=== PATIENT | female | born 1950 | race Caucasian/White ===

== ENCOUNTER 2018-02-01 14:29 | Observation (INO) ==
--- NOTE | 2018-02-01 14:43 | Emergency Department Note ---
Disposition Clinical Impression: Acute exacerbation of chronic obstructive airways disease Disposition: Admitted As Inpatient Condition: Fair Referrals: NONE,PCP [Primary Care Provider] - Forms: ED Satisfaction Letter General Adult HPI - General Chief complaint: ED Shortness of Breath/Dyspnea Stated complaint: SUSHMA Time Seen by Provider: 02/01/18 14:34 Source: patient, EMS - History of Present Illness Pain Scale: 0 - Related Data Home Medications Medication Instructions Recorded Confirmed Allopurinol [Zyloprim 100 MG] 100 mg PO DAILY 09/27/15 04/09/16 Buspirone HCl [Buspar] 15 mg PO BID 09/27/15 04/09/16 Cholecalciferol (Vitamin D3) 2,000 unit PO DAILY 09/27/15 04/09/16 [Vitamin D3] Escitalopram [Lexapro] 20 mg PO DAILY 09/27/15 04/09/16 Furosemide [Lasix] 40 mg PO DAILY 09/27/15 04/09/16 Gabapentin [Neurontin] 600 mg PO BID 09/27/15 04/09/16 Insulin ASPART [Novolog] 22 - 28 unit SQ TIDWM 09/27/15 04/09/16 Levothyroxine [Synthroid] 175 mcg PO DAILY 09/27/15 04/09/16 Lisinopril [Zestril] 20 mg PO DAILY 09/27/15 04/09/16 Metoprolol [Lopressor] 25 mg PO BID 09/27/15 04/09/16 Multivitamin [Multi-Day Vitamins] 1 tab PO DAILY 09/27/15 04/09/16 Omeprazole [PriLOSEC] 20 mg PO DAILY 09/27/15 04/09/16 Potassium Chloride [Klor-Con 8 meq PO DAILY 09/27/15 04/09/16 Sprinkle] Simvastatin [Zocor] 40 mg PO HS 09/27/15 04/09/16 Trazodone HCl [TraZODone] 100 mg PO HS 09/27/15 04/09/16 Vitamin B Complex [B Complex] 1 tab PO DAILY 09/27/15 04/09/16 raNITIdine HCl [Zantac] 150 mg PO BID 09/27/15 04/09/16 traMADol [Ultram] 50 mg PO Q6HR PRN 09/27/15 04/09/16 Aspirin 81 mg PO DAILY 04/09/16 04/09/16 DiphenhydraMINE [Benadryl] 25 mg PO Q6HR PRN 04/09/16 04/09/16 Docusate [Colace] 300 mg PO DAILY 04/09/16 04/09/16 LORazepam [Ativan] 0.5 mg PO BID PRN 04/09/16 04/09/16 Loratadine [Claritin] 10 mg PO DAILY 04/09/16 04/09/16 Previous Rx's Medication Instructions Recorded Albuterol Neb [Proventil Neb] 2.5 mg IH Q4H PRN #1 inhsol 04/11/16 Doxycycline Hyclate [Vibramycin] 100 mg PO BID #22 capsule 04/11/16 Nystatin POWDER [Nystop] 1 appl TP BID #3 bottle 04/11/16 Allergies Allergy/AdvReac Type Severity Reaction Status Date / Time adhesive tape Allergy Rash Verified 04/09/16 08:51 codeine Allergy Hives Verified 04/09/16 08:51 Penicillins Allergy Rash Verified 04/09/16 08:51 Sulfa (Sulfonamide Allergy Rash Verified 04/09/16 08:51 Antibiotics) Past Medical History - Past Medical History Medical history: Reports: arthritis, COPD, diabetes, GERD, hyperlipidemia, hypertension, osteoporosis, renal disease, thyroid disease, other Surgical history: Reports: other Psychiatric history: Reports: anxiety, depression - Social History Smoking Status: Never smoker Smokeless Tobacco Status: No Alcohol use: Reports: none Drug use: Reports: none Physical Exam - General General appearance: alert Course Vital Signs Temperature 98.8 F 02/01/18 14:33 Pulse Rate 75 02/01/18 14:33 Respiratory Rate 24 02/01/18 14:33 Blood Pressure 162/75 02/01/18 14:33 O2 Sat by Pulse Oximetry 94 02/01/18 14:33 Temperature 98.8 F 02/01/18 14:33 Pulse Rate 86 02/01/18 16:49 Respiratory Rate 20 02/01/18 16:49 Blood Pressure 114/73 02/01/18 16:49 O2 Sat by Pulse Oximetry 90 02/01/18 16:49 Oxygen Delivery Oxygen Delivery Nasal Cannula Medical Decision Making - Lab Data Result diagrams: 02/01/18 14:47 02/01/18 14:47 Lab Results 02/01/18 02/01/1802/01/18 Range/Units 14:47 14:47 14:47 WBC 5.6 (4.3-11.1) K/mcL RBC 4.12 (3.82-4.97) M/mcL Hgb 12.0 (11.5-15.4) g/dL Hct 38.3 (35.3-44.9) % MCV 93.0 (83.0-100.0) fL MCH 29.1 (28.0-33.3) pg MCHC 31.3 L (31.6-35.5) g/dL RDW 14.8 H (11.5-14.5) % Plt Count 120 L (140-400) K/mcL MPV 9.8 (9.4-12.4) fL Immature Gran % 0.5 (0-4) % Seg Neutrophils % 52.7 % Lymphocytes % 31.9 % Monocytes % 8.5 % Eosinophils % 6.0 % Basophils % 0.4 % Neutrophils # 3.0 (1.6-8.9) K/mcL Lymphocytes # 1.8 (0.6-4.6) K/mcL Monocytes # 0.5 (0.0-1.3) K/mcL Eosinophils # 0.3 (0.0-0.6) K/mcL Basophils # 0.0 (0.0-0.2) K/mcL Sodium 140 (136-145) mEq/L Potassium 4.0 (3.5-5.1) mEq/L Chloride 95 L (98-107) mEq/L Carbon Dioxide 37 H (23-29) mEq/L BUN 21 (8-23) mg/dL Creatinine 1.35 H (0.60-1.20) mg/dL Est GFR ( Amer) 47 L (> 60) Est GFR (Non-Af Amer) 39 L (> 60) BUN/Creatinine Ratio 16 (6-26) Glucose 250 H (70-105) mg/dL Calculated Osmolality 301 H (280-300) Lactic Acid (0.5-2.2) mmol/L Calcium 9.5 (8.6-10.3) mg/dL Total Bilirubin 0.5 (0.3-1.0) mg/dL AST 16 (13-39) Units/L ALT 13 (7-52) Units/L Alkaline Phosphatase 86 (34-104) Units/L Troponin I 0.03 (< 0.04) ng/mL B-Natriuretic Peptide 88 (Less than 100) pg/mL Serum Total Protein 6.5 (6.4-8.9) g/dL Albumin 3.5 (3.5-5.7) g/dL Globulin 3.0 (2.4-3.5) g/dL Albumin/Globulin Ratio 1.2 (1.1-2.2) 02/01/18 Range/Units 15:03 WBC (4.3-11.1) K/mcL RBC (3.82-4.97) M/mcL Hgb (11.5-15.4) g/dL Hct (35.3-44.9) % MCV (83.0-100.0) fL MCH (28.0-33.3) pg MCHC (31.6-35.5) g/dL RDW (11.5-14.5) % Plt Count (140-400) K/mcL MPV (9.4-12.4) fL Immature Gran % (0-4) % Seg Neutrophils % % Lymphocytes % % Monocytes % % Eosinophils % % Basophils % % Neutrophils # (1.6-8.9) K/mcL Lymphocytes # (0.6-4.6) K/mcL Monocytes # (0.0-1.3) K/mcL Eosinophils # (0.0-0.6) K/mcL Basophils # (0.0-0.2) K/mcL Sodium (136-145) mEq/L Potassium (3.5-5.1) mEq/L Chloride (98-107) mEq/L Carbon Dioxide (23-29) mEq/L BUN (8-23) mg/dL Creatinine (0.60-1.20) mg/dL Est GFR ( Amer) (> 60) Est GFR (Non-Af Amer) (> 60) BUN/Creatinine Ratio (6-26) Glucose (70-105) mg/dL Calculated Osmolality (280-300) Lactic Acid 1.0 (0.5-2.2) mmol/L Calcium (8.6-10.3) mg/dL Total Bilirubin (0.3-1.0) mg/dL AST (13-39) Units/L ALT (7-52) Units/L Alkaline Phosphatase (34-104) Units/L Troponin I (< 0.04) ng/mL B-Natriuretic Peptide (Less than 100) pg/mL Serum Total Protein (6.4-8.9) g/dL Albumin (3.5-5.7) g/dL Globulin (2.4-3.5) g/dL Albumin/Globulin Ratio (1.1-2.2) Critical Care Time Critical Care Time: Yes Total Critical Care Time: 30 Attestation: The high probability of a clinically significant, sudden or life threatening deterioration of the [] system(s) required my full and direct attention, intervention and personal management. The aggregate critical care time was [] minutes. This time is in addition to time spent performing reported procedures but includes the following: [] Data Review and interpretation [] Patient assessment and monitoring of vital signs [] Documentation [] Medication orders and management Attestation Statement - Attestation Attestation: I examined this patient and my medical decision-making was reviewed with the Resident Physician. I agree with the documented findings, disposition and treatment plan as described except to the extent set forth below. [id number] time provided Obese female presents by EMS. She c/o dyspnea. She has a history of COPD and CHF. He has a history of oxygen dependency. Appears mildly dyspneic on arrival
[2018-02-01] MEDS ORDERED: Ipratropium/Albuterol Neb 3 ML IH ONE (14:44)
--- NOTE | 2018-02-01 14:55 | Emergency Department Note ---
Disposition Clinical Impression: Acute exacerbation of chronic obstructive airways disease Disposition: Admitted As Inpatient Condition: Fair Referrals: NONE,PCP [Primary Care Provider] - Forms: ED Satisfaction Letter Time of Disposition: 17:25 (Spoke with admitting physician Dr. Avila) General Adult HPI - General Chief complaint: ED Shortness of Breath/Dyspnea Stated complaint: SUSHMA Time Seen by Provider: 02/01/18 14:34 Source: patient, EMS Mode of arrival: EMS Limitations: no limitations Nursing Notes Reviewed: Yes Vital Signs Reviewed: Yes - History of Present Illness HPI Narrative: 67 yo female presents to the ED via EMS with a complaint of shortness of breath since Thursday. She has a history of COPD, CHF, diabetes, and multiple other medical problems. She is on home oxygen at 3-4 L. She states that she has had to increase her home oxygen usage over the past several days because of her shortness of breath. She noted some new onset nausea today along with left lower quadrant abdominal pain that has now resolved. She has been around her son who was recently diagnosed with acute bronchitis. She denies fevers, chills , chest pain, constipation. She has noted one episode of loose stool that happened 2 or 3 days ago. She denies blood in her stool. Onset (ago): day(s) Radiation: non-radiation Pain Scale: 0 Consistency: constant Improves with: nothing Worsens with: movement Associated symptoms: Reports: cough, nausea/vomiting, shortness of breath Treatments Prior to Arrival: none - Related Data Home Medications Medication Instructions Recorded Confirmed Allopurinol [Zyloprim 100 MG] 100 mg PO DAILY 09/27/15 02/01/18 Buspirone HCl [Buspar] 15 mg PO BID 09/27/15 02/01/18 Cholecalciferol (Vitamin D3) 2,000 unit PO DAILY 09/27/15 02/01/18 [Vitamin D3] Furosemide [Lasix] 40 mg PO DAILY 09/27/15 02/01/18 Gabapentin [Neurontin] 600 mg PO BID 09/27/15 02/01/18 Insulin ASPART [Novolog] 22 - 28 unit SQ TIDWM 09/27/15 02/01/18 Lisinopril [Zestril] 40 mg PO DAILY 09/27/15 02/01/18 Metoprolol [Lopressor] 25 mg PO BID 09/27/15 02/01/18 Multivitamin [Multi-Day Vitamins] 1 tab PO DAILY 09/27/15 02/01/18 Omeprazole [PriLOSEC] 20 mg PO DAILY 09/27/15 02/01/18 Potassium Chloride [Klor-Con 8 meq PO DAILY 09/27/15 02/01/18 Sprinkle] Trazodone HCl [TraZODone] 100 mg PO HS 09/27/15 02/01/18 Vitamin B Complex [B Complex] 1 tab PO DAILY 09/27/15 02/01/18 raNITIdine HCl [Zantac] 150 mg PO BID 09/27/15 02/01/18 Aspirin 81 mg PO DAILY 04/09/16 02/01/18 DiphenhydraMINE [Benadryl] 25 mg PO Q6HR PRN 04/09/16 02/01/18 Docusate [Colace] 300 mg PO DAILY 04/09/16 02/01/18 Loratadine [Claritin] 10 mg PO DAILY 04/09/16 02/01/18 Atorvastatin Calcium [Lipitor] 80 mg PO HS 02/01/18 02/01/18 Insulin DETEMIR [Levemir] 80 unit SQ QPM 02/01/18 02/01/18 Levothyroxine Sodium [Synthroid] 200 mcg PO DAILY 02/01/18 02/01/18 Previous Rx's Medication Instructions Recorded Albuterol Neb [Proventil Neb] 2.5 mg IH Q4H PRN #1 inhsol 04/11/16 Nystatin POWDER [Nystop] 1 appl TP BID #3 bottle 04/11/16 Allergies Allergy/AdvReac Type Severity Reaction Status Date / Time adhesive tape Allergy Rash Verified 04/09/16 08:51 codeine Allergy Hives Verified 04/09/16 08:51 Penicillins Allergy Rash Verified 04/09/16 08:51 Sulfa (Sulfonamide Allergy Rash Verified 04/09/16 08:51 Antibiotics) All systems ED: reviewed and negative except as stated. Review of Systems: As Per HPI Constitutional: Denies: fever, chills, weakness, weight change Cardiovascular: Reports: dyspnea on exertion. Denies: chest pain, palpitations , edema, syncope Respiratory: Reports: cough, dyspnea, wheezes Gastrointestinal: Reports: abdominal pain, nausea. Denies: vomiting, constipation, melena, hematochezia Past Medical History - Past Medical History Attestation: Yes The following information was validated with the patient. Source: patient Medical history: Reports: arthritis, COPD, diabetes, GERD, hyperlipidemia, hypertension, osteoporosis, renal disease, thyroid disease, other Surgical history: Reports: other Psychiatric history: Reports: anxiety, depression - Social History Smoking Status: Never smoker Smokeless Tobacco Status: No Alcohol use: Reports: none Drug use: Reports: none Physical Exam - General Limitations: no limitations General appearance: alert - Head Head exam: atraumatic, normocephalic, normal inspection - Chest Chest inspection: Present: normal inspection, symmetric chest wall rise. Absent : tenderness - Respiratory Respiratory exam: Present: wheezes (Tight airway with end expiratory wheezes), prolonged expiratory phase - Cardiovascular Cardiovascular exam: Present: regular rate, normal rhythm - Abdominal Exam Abdominal exam: Present: soft, Non-Tender Course Course Narrative: Patient will be worked up for ACS versus CHF versus COPD exacerbation. CBC, CMP , lactic, troponin, EKG, chest x-ray have been ordered. DuoNeb 3 ordered. - Reevaluation(s) Reevaluation #1: Labs reviewed, unremarkable. Chest x-ray showed no signs of infiltrate. Patient was reexamined and found to have increased wheezing on exam. Patient still short of breath after DuoNeb treatment. We will give 125 mg Solu-Medrol, 750 mg Levaquin, and admit due to persistent shortness of breath. Time: 16:16 Vital Signs Temperature 98.8 F 02/01/18 14:33 Pulse Rate 75 02/01/18 14:33 Respiratory Rate 24 02/01/18 14:33 Blood Pressure 162/75 02/01/18 14:33 O2 Sat by Pulse Oximetry 94 02/01/18 14:33 Temperature 98.8 F 02/01/18 14:33 Pulse Rate 82 02/01/18 18:32 Respiratory Rate 24 02/01/18 17:32 Blood Pressure 183/58 02/01/18 17:32 O2 Sat by Pulse Oximetry 96 02/01/18 18:32 Oxygen Delivery Oxygen Delivery Room Air Medical Decision Making - Medical Records Medical records reviewed: Yes I reviewed the patient's medical records. - Lab Data Lab results reviewed: Yes I reviewed the patient's lab results. Result diagrams: 02/01/18 14:47 02/01/18 14:47 Lab Results 02/01/18 02/01/18 02/01/18 Range/Units 14:47 14:47 14:47 WBC 5.6 (4.3-11.1) K/mcL RBC 4.12 (3.82-4.97) M/mcL Hgb 12.0 (11.5-15.4) g/dL Hct 38.3 (35.3-44.9) % MCV 93.0 (83.0-100.0) fL MCH 29.1 (28.0-33.3) pg MCHC 31.3 L (31.6-35.5) g/dL RDW 14.8 H (11.5-14.5) % Plt Count 120 L (140-400) K/mcL MPV 9.8 (9.4-12.4) fL Immature Gran % 0.5 (0-4) % Seg Neutrophils % 52.7 % Lymphocytes % 31.9 % Monocytes % 8.5 % Eosinophils % 6.0 % Basophils % 0.4 % Neutrophils # 3.0 (1.6-8.9) K/mcL Lymphocytes # 1.8 (0.6-4.6) K/mcL Monocytes # 0.5 (0.0-1.3) K/mcL Eosinophils # 0.3 (0.0-0.6) K/mcL Basophils # 0.0 (0.0-0.2) K/mcL ABG pH (7.32-7.45) pH Units ABG pCO2 (35-45) mmHg ABG pO2 (85-104) mmHg ABG HCO3 (21-27) mEq/L ABG Total CO2 (20-26) mEq/L ABG O2 Saturation (95-98) % ABG Base Excess (-2 to 3) mEq/L Alejandro Test O2 Delivery Device Inspired O2 (1-15=lpm [id number]=%) Sodium 140 (136-145) mEq/L Potassium 4.0 (3.5-5.1) mEq/L Chloride 95 L (98-107) mEq/L Carbon Dioxide 37 H (23-29) mEq/L BUN 21 (8-23) mg/dL Creatinine 1.35 H (0.60-1.20) mg/dL Est GFR ( Amer) 47 L (> 60) Est GFR (Non-Af Amer) 39 L (> 60) BUN/Creatinine Ratio 16 (6-26) Glucose 250 H (70-105) mg/dL Calculated Osmolality 301 H (280-300) Lactic Acid (0.5-2.2) mmol/L Calcium 9.5 (8.6-10.3) mg/dL Total Bilirubin 0.5 (0.3-1.0) mg/dL AST 16 (13-39) Units/L ALT 13 (7-52) Units/L Alkaline Phosphatase 86 (34-104) Units/L Troponin I 0.03 (< 0.04) ng/mL B-Natriuretic Peptide 88 (Less than 100) pg/mL Serum Total Protein 6.5 (6.4-8.9) g/dL Albumin 3.5 (3.5-5.7) g/dL Globulin 3.0 (2.4-3.5) g/dL Albumin/Globulin Ratio 1.2 (1.1-2.2) 02/01/18 02/01/18 Range/Units 15:03 17:37 WBC (4.3-11.1) K/mcL RBC (3.82-4.97) M/mcL Hgb (11.5-15.4) g/dL Hct (35.3-44.9) % MCV (83.0-100.0) fL MCH (28.0-33.3) pg MCHC (31.6-35.5) g/dL RDW (11.5-14.5) % Plt Count (140-400) K/mcL MPV (9.4-12.4) fL Immature Gran % (0-4) % Seg Neutrophils % % Lymphocytes % % Monocytes % % Eosinophils % % Basophils % % Neutrophils # (1.6-8.9) K/mcL Lymphocytes # (0.6-4.6) K/mcL Monocytes # (0.0-1.3) K/mcL Eosinophils # (0.0-0.6) K/mcL Basophils # (0.0-0.2) K/mcL ABG pH 7.51 H (7.32-7.45) pH Units ABG pCO2 50 H (35-45) mmHg ABG pO2 88 (85-104) mmHg ABG HCO3 39 H (21-27) mEq/L ABG Total CO2 41 H (20-26) mEq/L ABG O2 Saturation 97 (95-98) % ABG Base Excess 14 H (-2 to 3) mEq/L Alejandro Test N/A O2 Delivery Device Cannula Inspired O2 6.0 (1-15=lpm [id number]=%) Sodium (136-145) mEq/L Potassium (3.5-5.1) mEq/L Chloride (98-107) mEq/L Carbon Dioxide (23-29) mEq/L BUN (8-23) mg/dL Creatinine (0.60-1.20) mg/dL Est GFR ( Amer) (> 60) Est GFR (Non-Af Amer) (> 60) BUN/Creatinine Ratio (6-26) Glucose (70-105) mg/dL Calculated Osmolality (280-300) Lactic Acid 1.0 (0.5-2.2) mmol/L Calcium (8.6-10.3) mg/dL Total Bilirubin (0.3-1.0) mg/dL AST (13-39) Units/L ALT (7-52) Units/L Alkaline Phosphatase (34-104) Units/L Troponin I (< 0.04) ng/mL B-Natriuretic Peptide (Less than 100) pg/mL Serum Total Protein (6.4-8.9) g/dL Albumin (3.5-5.7) g/dL Globulin (2.4-3.5) g/dL Albumin/Globulin Ratio (1.1-2.2) - Radiology Data Radiology results reviewed: Yes I reviewed the patient's radiology results. - EKG Data EKG #1 EKG attestation: Yes I reviewed and interpreted this EKG. EKG results narrative: 1448: Ventricular rate 73 bpm, NJ interval 177 MS, QRS duration 105 MS, QT/QTC ratio 402/429 MS, normal axis. Sinus rhythm, moderate voltage criteria for left ventricular hypertrophy. No evidence of ischemic ST-T changes on EKG. No changes from previous EKG dated 09/24/2017. EKG shows normal: sinus rhythm Rate: normal
[2018-02-01 14:59] LABS: Basophils % 0.4 %; Eosinophils # 0.3 K/mcL (0.0-0.6); Hematocrit 38.3 % (35.3-44.9); Immature Granulocytes % 0.5 % (0-4); Lymphocytes # 1.8 K/mcL (0.6-4.6); Lymphocytes % 31.9 %; Mean Corpuscular HGB Conc 31.3 g/dL (31.6-35.5); Mean Corpuscular Hemoglobin 29.1 pg (28.0-33.3); Mean Platelet Volume 9.8 fL (9.4-12.4); Monocytes # 0.5 K/mcL (0.0-1.3); Monocytes % 8.5 %; Platelet Count 120 K/mcL (140-400); Red Blood Count 4.12 M/mcL (3.82-4.97); Red Cell Distribution Width 14.8 % (11.5-14.5); Segmented Neutrophils % 52.7 %
[2018-02-01 15:22] LABS: Troponin I 0.03 ng/mL (< 0.04)
[2018-02-01 15:43] LABS: Albumin 3.5 g/dL (3.5-5.7); Albumin/Globulin Ratio 1.2 (1.1-2.2); Bilirubin,Total 0.5 mg/dL (0.3-1.0); Calcium 9.5 mg/dL (8.6-10.3); Total Protein 6.5 g/dL (6.4-8.9)
[2018-02-01] MEDS ORDERED: methylPREDNISolone 125 MG/2 ML VIAL IVP ONE (16:06)
[2018-02-01] MEDS: Levofloxacin 750 MG/150 ML 750 MG/150 ML BAG IVPB SCH (16:37)
[2018-02-01] MEDS ORDERED: *HR* LORazepam 2 MG/ML VIAL IVP ONE (16:55)
[2018-02-01] MEDS ORDERED: Ondansetron 4 MG/2 ML VIAL IVP ONE (16:58)
[2018-02-01 17:42] LABS: ABG Base Excess 14 mEq/L (-2 to 3); ABG HCO3 39 mEq/L (21-27); ABG Oxygen Saturation 97 % (95-98); ABG PCO2 50 mmHg (35-45); ABG PH 7.51 pH Units (7.32-7.45); ABG PO2 88 mmHg (85-104); ABG TCO2 41 mEq/L (20-26)
--- NOTE | 2018-02-01 21:14 | Internal Med History&Physical ---
Date of Encounter: 02/01/18 Time of Encounter: 21:14 Internal Medicine - H&P: HPI Chief complaint: Shortness of breath History of present illness: Ms. Smart is a 67 year old female presents to the ED via EMS with a complaint of shortness of breath since Thursday. She has a history of COPD, CHF, diabetes, and multiple other medical problems and require maintenance 3-4 L of home oxygen where she has to increase that gradually over the last several days due to worsening of her shortness of breath at was associated with nausea as well as left lower quadrant abdominal pain and one episode of loose stool that has now resolved. She reported a sick contact at home, her son who was recently diagnosed with acute bronchitis. The patient received respiratory treatment and was given Solu-Medrol in the ER with significant clinical improvement that was noted subsequently. Patient was admitted for further evaluation and management of COPD exacerbation Past Med Surg Social Fam HX - Past Medical History Medical history: arthritis, COPD, diabetes, GERD, hyperlipidemia, hypertension, osteoporosis, renal disease, thyroid disease, other Additional medical history: heart murmur, cellulitis Psychiatric history: anxiety, depression - Past Surgical History Surgical History: other Additional surgical history: left leg surgery with wound vac, fistula - Social History Smoking Status: Never smoker Smokeless Tobacco Status: No Alcohol use: none Drug use: none - Family History Mother Living Status: Age at : 75 Cause of : cancer Hx Family Cardiac Disorders: Yes Hx Family Respiratory Disorders: No Hx Family Cancer: Yes (COLON CANCER) Hx Family GI Disorders: Yes Hx Family Endocrine Disorder: Yes Internal Medicine - H&P: Meds Allopurinol [Zyloprim 100 MG] 100 mg PO DAILY 09/27/15 [History] Buspirone HCl [Buspar] 15 mg PO BID 09/27/15 [History] Cholecalciferol (Vitamin D3) [Vitamin D3] 2,000 unit PO DAILY 09/27/15 [History] Furosemide [Lasix] 40 mg PO DAILY 09/27/15 [History] Gabapentin [Neurontin] 600 mg PO BID 09/27/15 [History] Insulin ASPART [Novolog] 22 - 28 unit SQ TIDWM 09/27/15 [History] Lisinopril [Zestril] 40 mg PO DAILY 09/27/15 [History] Metoprolol [Lopressor] 25 mg PO BID 09/27/15 [History] Multivitamin [Multi-Day Vitamins] 1 tab PO DAILY 09/27/15 [History] Omeprazole [PriLOSEC] 20 mg PO DAILY 09/27/15 [History] Potassium Chloride [Klor-Con Sprinkle] 8 meq PO DAILY 09/27/15 [History] Trazodone HCl [TraZODone] 100 mg PO HS 09/27/15 [History] Vitamin B Complex [B Complex] 1 tab PO DAILY 09/27/15 [History] Aspirin 81 mg PO DAILY 04/09/16 [History] DiphenhydraMINE [Benadryl] 25 mg PO Q6HR PRN 04/09/16 [History] Docusate [Colace] 300 mg PO DAILY 04/09/16 [History] Loratadine [Claritin] 10 mg PO DAILY 04/09/16 [History] Albuterol Neb [Proventil Neb] 2.5 mg IH Q4H PRN #1 inhsol 04/11/16 [Rx] Nystatin POWDER [Nystop] 1 appl TP BID #3 bottle 04/11/16 [Rx] Atorvastatin Calcium [Lipitor] 80 mg PO HS 02/01/18 [History] Insulin DETEMIR [Levemir] 80 unit SQ QPM 02/01/18 [History] Levothyroxine Sodium [Synthroid] 200 mcg PO DAILY 02/01/18 [History] raNITIdine HCl [Zantac] 150 mg PO BID 02/01/18 [History] 3 Allergy/AdvReac Type Severity Reaction Status Date / Time adhesive tape Allergy Rash Verified 02/01/18 21:49 codeine Allergy Hives Verified 02/01/18 21:49 Penicillins Allergy Rash Verified 02/01/18 21:49 Sulfa (Sulfonamide Allergy Rash Verified 02/01/18 21:49 Antibiotics) All Systems PM: A 10-system review of systems was performed and is negative for pertinent findings except as documented above in the HPI. - Constitutional Constitutional: no chills, no fever(s), no night sweats - Cardiovascular Cardiovascular ROS IM: dyspnea, dyspnea on exertion, no chest pain, no diaphoresis, no lightheadedness, no palpitations, no syncope - Respiratory Respiratory: dyspnea, no cough, no wheezing, no excessive phlegm production - Gastrointestinal Gastrointestinal: no abdominal pain, no diarrhea, no hematemesis, no hematochezia, no melena, no nausea, no vomiting - Neurological Neurological ROS: no confusion, no convulsions, no focal weakness, no numbness, no tingling, no tremor(s) - Constitutional Vitals: Temp Pulse Resp BP Pulse Ox 98.7 F 71 18 170/74 98 02/01/18 20:34 02/01/18 20:34 02/01/18 20:34 02/01/18 20:34 02/01/18 20:34 General appearance: Present: A&O X 3, morbidly obese - Head Head exam: Present: atraumatic, normocephalic - Neck Neck exam general surgery: Present: supple, trachea midline. Absent: lymphadenopathy - Respiratory Respiratory exam: Present: rhonchi, wheezes. Absent: accessory muscle use, rales - Cardiovascular Cardiovascular exam: Present: RRR, +S1, +S2. Absent: diastolic murmur, gallop, rubs, systolic murmur - GI/Abdominal GI/Abdominal exam: Present: normal bowel sounds, soft, no peritoneal signs. Absent: distended, tenderness - Extremities Exam Extremities exam: Present: warm, radial pulses palpable and symmetrical. Absent : calf tenderness, cyanotic, pedal edema Internal Med - H&P Results - Labs CBC & Chem 7: 02/02/18 04:33 02/02/18 04:33 - Assessment and plan (1) Acute exacerbation of chronic obstructive airways disease Current Visit: Yes Status: Acute Assessment and plan: ASSESSMENT: - SOB due to COPD exacerbation caused by URTI, allergen exposure, medication nonocompliance PLAN: - Aerosols q 4 hr and PRN SOB - Solu-medrol 40 mg IV q 6 hr - O2 to keep SpO2 higher than 92% (SpO higher than 95% if CAD) - CBCD, BMP in AM - Sputum Gram stain, C+S - Robitussin 10 cc PO q 4 hr - Tylenol 650 mg PO q 4-6 hr PRN pain/fever - Heparin 5000 U SQ BID - Home meds - check the list and restart - ABs (2) Chronic respiratory failure Current Visit: No Status: Chronic Assessment and plan: We will continue home oxygen Qualifiers: Respiratory failure complication: hypoxia and hypercapnia Qualified Code(s) : J96.11 - Chronic respiratory failure with hypoxia; J96.12 - Chronic respiratory failure with hypercapnia (3) Diabetes mellitus type 2 in obese Current Visit: No Status: Chronic Assessment and plan: We will continue home regimen and start the patient on insulin sliding scale with moderate coverage (4) Dyslipidemia Current Visit: No Status: Chronic Assessment and plan: We will continue home statin and obtain fasting lipid profile in a.m. (5) Morbid obesity with BMI of 60.0-69.9, adult Current Visit: No Status: Chronic (6) CKD (chronic kidney disease) Current Visit: Yes Status: Acute Assessment and plan: Creatinine at baseline we will continue to monitor renal function, strict I&O's , renal dosing of medication as better current EGFR Qualifiers: Qualified Code(s): N18.9 - Chronic kidney disease, unspecified (7) DVT prophylaxis Current Visit: No Status: Acute Assessment and plan: Heparin subcutaneous 5000 twice a day - Time Spent With Patient Total time spent is greater than 50% in coordination of care (as documented) at patient's floor/unit and/or counseling patient:
[2018-02-01] MEDS ORDERED: Albuterol 2.5 MG/3 ML NEBULIZER IH PRN (21:16)
[2018-02-01] MEDS ORDERED: *HR* Dextrose 50 % in Water (Syg) 50 ML SYRINGE IVP PRN (21:19)
[2018-02-01] MEDS ORDERED: D5% in Water 1,000 ML IVC PRN (21:19)
[2018-02-01] MEDS ORDERED: Dextrose Gel 15 GM/37.5 ML TUBE PO PRN ×2 (21:19)
[2018-02-01] MEDS ORDERED: Naloxone 0.4 MG/ML INJ IVP PRN (21:46)
[2018-02-01] MEDS ORDERED: Acetaminophen 325 MG TABLET PO PRN (21:46)
[2018-02-01] MEDS ORDERED: Insulin LISPRO 300 UNITS/3 ML VIAL SQ ONE (22:59)
[2018-02-02] MEDS ORDERED: Ondansetron 4 MG/2 ML VIAL IVP PRN (00:59)
[2018-02-02] MEDS: traZODone 50 MG TABLET PO SCH ×2 (01:17→22:42)
[2018-02-02] MEDS: traMADol 50 MG TABLET PO PRN ×2 (03:33→22:45)
[2018-02-02 05:10] LABS: Hematocrit 37.3 % (35.3-44.9); Hemoglobin 11.8 g/dL (11.5-15.4); Mean Corpuscular HGB Conc 31.6 g/dL (31.6-35.5); Mean Corpuscular Hemoglobin 28.9 pg (28.0-33.3); Mean Corpuscular Volume 91.4 fL (83.0-100.0); Mean Platelet Volume 10.3 fL (9.4-12.4); Platelet Count 129 K/mcL (140-400); Red Blood Count 4.08 M/mcL (3.82-4.97); Red Cell Distribution Width 14.5 % (11.5-14.5)
[2018-02-02 05:19] LABS: INR 1.1
[2018-02-02] MEDS ORDERED: *HR* FentaNYL (PF) 100 MCG/2 ML VIAL IVP ONE (05:31)
[2018-02-02 05:34] LABS: Albumin 3.3 g/dL (3.5-5.7); Bilirubin,Total 0.5 mg/dL (0.3-1.0); Calcium 9.3 mg/dL (8.6-10.3); Chol/HDL Ratio 3.8 (0-4.9); Globulin 3.4 g/dL (2.4-3.5); Magnesium 1.6 mg/dL (1.6-2.6); Phosphorous 3.2 mg/dL (2.7-4.5); Potassium 4.5 mEq/L (3.5-5.1); Total Protein 6.7 g/dL (6.4-8.9)
[2018-02-02 06:26] LABS: Amylase 14 Units/L (29-103); Lipase 5 Units/L (11-82)
--- NOTE | 2018-02-02 07:52 | Internal Med Progress Note ---
Date of Encounter: 02/02/18 Time of Encounter: 07:52 - Assessment and plan (1) Abdominal pain Current Visit: Yes Status: Acute Assessment and plan: Associated with several episode of loose stool since yesterday C. difficile is pending would obtain CAT scan with IV contrast. Qualifiers: Qualified Code(s): R10.9 - Unspecified abdominal pain (2) Acute exacerbation of chronic obstructive airways disease Current Visit: Yes Status: Acute Assessment and plan: ASSESSMENT: - SOB due to COPD exacerbation caused by URTI, allergen exposure, medication nonocompliance PLAN: - Aerosols q 4 hr and PRN SOB - Solu-medrol 40 mg IV q 6 hr - O2 to keep SpO2 higher than 92% (SpO higher than 95% if CAD) - CBCD, BMP in AM - Sputum Gram stain, C+S - Robitussin 10 cc PO q 4 hr - Tylenol 650 mg PO q 4-6 hr PRN pain/fever - Heparin 5000 U SQ BID - ABs (3) Chronic respiratory failure Current Visit: No Status: Chronic Assessment and plan: We will continue home oxygen Qualifiers: Respiratory failure complication: hypoxia and hypercapnia Qualified Code(s) : J96.11 - Chronic respiratory failure with hypoxia; J96.12 - Chronic respiratory failure with hypercapnia (4) Diabetes mellitus type 2 in obese Current Visit: No Status: Chronic Assessment and plan: We will continue home regimen and start the patient on insulin sliding scale with moderate coverage (5) Dyslipidemia Current Visit: No Status: Chronic Assessment and plan: We will continue home statin and obtain fasting lipid profile in a.m. (6) Morbid obesity with BMI of 60.0-69.9, adult Current Visit: No Status: Chronic (7) CKD (chronic kidney disease) Current Visit: Yes Status: Acute Assessment and plan: Creatinine at baseline we will continue to monitor renal function, strict I&O's , renal dosing of medication as better current EGFR Qualifiers: Qualified Code(s): N18.9 - Chronic kidney disease, unspecified (8) DVT prophylaxis Current Visit: No Status: Acute Assessment and plan: Heparin subcutaneous 5000 twice a day - Time Spent With Patient Total time spent is greater than 50% in coordination of care (as documented) at patient's floor/unit and/or counseling patient: - Subjective Interval history: She is lying in the pain. She is complaining of severe abdominal pain, stated that she believes something wrong with her abdomen, she also has several episode of loose stool and C. difficile studies are pending. - Constitutional Vitals: Temp Pulse Resp BP Pulse Ox 98.0 F 79 18 142/88 93 02/02/18 06:56 02/02/18 06:56 02/02/18 06:56 02/02/18 06:56 02/02/18 06:56 General appearance: Present: A&O X 3, morbidly obese - Head Head exam: Present: atraumatic, normocephalic - Neck Neck exam general surgery: Present: supple, trachea midline. Absent: lymphadenopathy - Cardiovascular Cardiovascular exam: Present: RRR, +S1, +S2. Absent: diastolic murmur, gallop, rubs, systolic murmur - GI/Abdominal GI/Abdominal exam: Present: normal bowel sounds, soft, no peritoneal signs. Absent: distended, tenderness - Extremities Exam Extremities exam: Present: warm, radial pulses palpable and symmetrical. Absent : calf tenderness, cyanotic, pedal edema - Neurological Exam Neurological exam: Present: CN II-XII intact, oriented X3, no focal deficits. Absent: pronater drift, facial droop, speech deficit Internal Medicine: Result - Labs CBC & Chem 7: 02/02/18 04:33 02/02/18 04:33 Labs: Short CBC 02/02/18 Range/Units 04:33 WBC 5.4 (4.3-11.1) K/mcL Hgb 11.8 (11.5-15.4) g/dL Hct 37.3 (35.3-44.9) % Plt Count 129 L (140-400) K/mcL BMP 02/02/18 04:33 Sodium 137 Potassium 4.5 Chloride 93 L Carbon Dioxide 35 H BUN 25 H Creatinine 1.23 H Glucose 386 H Calcium 9.3 Liver Function 02/02/18 Range/Units 04:33 Total Bilirubin 0.5 (0.3-1.0) mg/dL AST 16 (13-39) Units/L ALT 13 (7-52) Units/L Alkaline Phosphatase 86 (34-104) Units/L Albumin 3.3 L (3.5-5.7) g/dL - ABG Interpretation ABG results: ABG ABG pH 7.51 pH Units (7.32-7.45) H 02/01/18 17:37 ABG pCO2 50 mmHg (35-45) H 02/01/18 17:37 ABG pO2 88 mmHg (85-104) 02/01/18 17:37 ABG O2 Saturation 97 % (95-98) 02/01/18 17:37 PT/INR, D-dimer PT 12.0 Seconds (9.4-12.1) 02/02/18 04:33 Consult Discharge Plan - Plan Referrals: NONE,PCP [Primary Care Provider] -
[2018-02-02] MEDS: Loratadine 10 MG TABLET PO SCH (08:27)
[2018-02-02] MEDS: Vitamin B Complex/Vit C/Vit E 1 EACH TABLET PO SCH (08:27)
[2018-02-02] MEDS: Cholecalciferol (D-3) 1,000 UNIT TABLET PO SCH (08:27)
[2018-02-02] MEDS: Famotidine 20 MG TABLET PO SCH ×2 (08:27→22:42)
[2018-02-02] MEDS: Furosemide 40 MG TABLET PO SCH (08:28)
[2018-02-02] MEDS: Gabapentin 300 MG CAPSULE PO SCH ×2 (08:28→22:42)
[2018-02-02] MEDS: Aspirin 81 MG TAB.CHEW PO SCH (08:32)
[2018-02-02] MEDS: Lisinopril 20 MG TABLET PO SCH (08:32)
[2018-02-02] MEDS: Insulin LISPRO 300 UNITS/3 ML VIAL SQ SCH ×3 (08:32→18:18)
[2018-02-02] MEDS: Multivit/Ca/Min/Fe/FA 1 TAB TABLET PO SCH (08:32)
[2018-02-02] MEDS: Levofloxacin 750 MG/150 ML 750 MG/150 ML BAG IVPB SCH (08:33)
[2018-02-02] MEDS: Nystatin POWDER 30 GM BOTTLE TP SCH ×2 (08:34→22:51)
[2018-02-02] MEDS ORDERED: Levofloxacin 500 MG/100 ML 500 MG/100 ML BAG IVPB SCH (09:00)
[2018-02-02] MEDS: *HR* FentaNYL (PF) 100 MCG/2 ML VIAL IVP PRN ×2 (09:00→20:54)
[2018-02-02] MEDS: Ipratropium/Albuterol Neb 3 ML IH SCH ×3 (11:01→22:28)
[2018-02-02] MEDS: MethylPREDNISolone 40 MG/ML VIAL IVP SCH ×2 (13:29→18:18)
[2018-02-02] MEDS ORDERED: Isovue-370 500 ML INFUS..BTL IV ONE ×2 (13:32)
[2018-02-02] MEDS ORDERED: *HR* LORazepam 0.5 MG TABLET PO ONE (15:04)
[2018-02-02] MEDS ORDERED: Insulin DETEMIR 100 UNIT/ML X5UNITS SQ SCH (18:00)
[2018-02-02 19:48] LABS: Adenovirus F 40/41 PCR Not detected (Not detect); Astrovirus PCR Not detected (Not detect); C.difficile Toxin A/B by PCR Not detected (Not detect); Campylobacter by PCR Not detected (Not detect); Cryptosporidium by PCR Not detected (Not detect); Cyclospora cayetanensis PCR Not detected (Not detect); E. coli O157 by PCR Not detected (Not detect); Entamoeba histolytica PCR Not detected (Not detect); Enteroaggregative E.coli(EAEC) Not detected (Not detect); Enteropathogenic E.coli(EPEC) Not detected (Not detect); Enterotoxigenic E.coli (ETEC) Not detected (Not detect); Giardia lamblia PCR Not detected (Not detect); Norovirus GI/GII PCR Not detected (Not detect); Plesiomonas shigelloides PCR Not detected (Not detect); Rotavirus A PCR Not detected (Not detect); Salmonella PCR Not detected (Not detect); Sapovirus PCR Not detected (Not detect); Shig/EnteroinvasiveE coli EIEC Not detected (Not detect); Shigalike tox-prod E coli STEC Not detected (Not detect); Vibrio PCR Not detected (Not detect); Vibrio cholerae PCR Not detected (Not detect); Yersinia enterocolitica PCR Not detected (Not detect)
[2018-02-02] MEDS ORDERED: Insulin LISPRO 300 UNITS/3 ML VIAL SQ SCH (21:00)
[2018-02-02] MEDS ORDERED: traZODone 50 MG TABLET PO SCH (21:00)
[2018-02-03] MEDS: MethylPREDNISolone 40 MG/ML VIAL IVP SCH ×5 (01:26→23:26)
[2018-02-03] MEDS: Ipratropium/Albuterol Neb 3 ML IH SCH ×4 (04:00→21:18)
[2018-02-03] MEDS: Insulin LISPRO 300 UNITS/3 ML VIAL SQ SCH ×3 (08:03→17:24)
[2018-02-03] MEDS: Lisinopril 20 MG TABLET PO SCH (08:06)
[2018-02-03] MEDS: Loratadine 10 MG TABLET PO SCH (08:06)
[2018-02-03] MEDS: Multivit/Ca/Min/Fe/FA 1 TAB TABLET PO SCH (08:06)
[2018-02-03] MEDS: Aspirin 81 MG TAB.CHEW PO SCH (08:06)
[2018-02-03] MEDS: Cholecalciferol (D-3) 1,000 UNIT TABLET PO SCH (08:06)
[2018-02-03] MEDS: Gabapentin 300 MG CAPSULE PO SCH ×2 (08:07→21:33)
[2018-02-03] MEDS: Famotidine 20 MG TABLET PO SCH ×4 (08:07→21:35)
[2018-02-03] MEDS: Furosemide 40 MG TABLET PO SCH (08:07)
[2018-02-03] MEDS: Levofloxacin 750 MG/150 ML 750 MG/150 ML BAG IVPB SCH (08:09)
[2018-02-03] MEDS: Vitamin B Complex/Vit C/Vit E 1 EACH TABLET PO SCH (08:10)
[2018-02-03] MEDS: Nystatin POWDER 30 GM BOTTLE TP SCH ×2 (08:10→21:40)
[2018-02-03] MEDS ORDERED: *HR* Enoxaparin 30 MG/0.3 ML SYRINGE SQ SCH (09:45)
[2018-02-03] MEDS: Acetylcysteine 10% 2 ML INHSOL IH SCH ×3 (11:06→21:18)
[2018-02-03] MEDS: *HR* Enoxaparin 40 MG/0.4 ML SYRINGE SQ SCH (11:50)
[2018-02-03] MEDS: *HR* FentaNYL (PF) 100 MCG/2 ML VIAL IVP PRN (14:23)
[2018-02-03] MEDS ORDERED: *HR* HYDROcodone/Acet 5/325 mg TABLET PO PRN (15:06)
--- NOTE | 2018-02-03 15:49 | Internal Med Progress Note ---
Date of Encounter: 02/03/18 Time of Encounter: 15:46 - Assessment and plan (1) Acute exacerbation of chronic obstructive airways disease Current Visit: Yes Status: Acute Assessment and plan: Improving. Continue solumedrol; change to PO prednisone with taper tomorrow with continued improvement. Continue levaquin. Add guaifenesin, claritin, mucomyst, and chest PT. Continue scheduled duonebs. Continue supplemental O2; now at home 3-4L by [place]. (2) Abdominal pain Current Visit: Yes Status: Acute Assessment and plan: CT abdomen/pelvis and stool studies negative. Continue PPI. Add ranitidine and sucralfate. Qualifiers: Qualified Code(s): R10.9 - Unspecified abdominal pain (3) Chronic respiratory failure Current Visit: Yes Status: Chronic Assessment and plan: Continue home supplemental O2. Qualifiers: Respiratory failure complication: hypoxia and hypercapnia Qualified Code(s) : J96.11 - Chronic respiratory failure with hypoxia; J96.12 - Chronic respiratory failure with hypercapnia (4) Diabetes mellitus type 2 in obese Current Visit: Yes Status: Chronic Assessment and plan: Hyperglycemia. Continue accuchecks and increase to high dose SSI QID AC/HS. Continue home levemir. (5) Morbid obesity with BMI of 60.0-69.9, adult Current Visit: Yes Status: Chronic Assessment and plan: Counselled on lifestyle modifications. (6) Dyslipidemia Current Visit: Yes Status: Chronic Assessment and plan: Continue home medications. (7) CKD (chronic kidney disease) Current Visit: Yes Status: Chronic Assessment and plan: Creatinine at baseline. Avoid nephrotoxins. Repeat BMP in AM. Qualifiers: Qualified Code(s): N18.9 - Chronic kidney disease, unspecified (8) DVT prophylaxis Current Visit: Yes Status: Acute Assessment and plan: Start SQ lovenox. - Time Spent With Patient Total time spent is greater than 50% in coordination of care (as documented) at patient's floor/unit and/or counseling patient: less than 15 minutes - Subjective Interval history: Patient had no acute events overnight. She states that breathing is "better." She has increased cough since addition of guaifenesin and mucomyst, but this is helping with breathing. She still has some abdominal pain and diarrhea. She denies fever, chills, chest pain, nausea, vomiting, or changes in bladder. She has no other complaints at this time. - Constitutional Vitals: Temp Pulse Resp BP Pulse Ox 98.0 F 58 20 137/80 96 02/03/18 10:53 02/03/18 10:53 02/03/18 10:53 02/03/18 10:53 02/03/18 10:53 General appearance: Present: cooperative, A&O X 3, morbidly obese, pleasant, no acute distress, answers questions appropriately - Respiratory Respiratory exam: Absent: accessory muscle use, rales, rhonchi Additional comments: Mildly labored WOB, coarse breath sounds bilaterally with intermittent expiratory wheeze - Cardiovascular Cardiovascular exam: Present: RRR, +S1, +S2. Absent: diastolic murmur, gallop, rubs, systolic murmur Additional comments: No BLE edema - GI/Abdominal GI/Abdominal exam: Present: normal bowel sounds, soft. Absent: distended, hepatomegaly, mass, splenomegaly, tenderness - Psychiatric Psychiatric exam: Present: normal affect, normal mood. Absent: agitated, anxious, depressed - Skin Skin exam: Present: dry, intact, warm. Absent: cyanosis, rash Internal Medicine: Result - Labs CBC & Chem 7: 02/02/18 04:33 02/02/18 04:33 - ABG Interpretation ABG results: ABG ABG pH 7.51 pH Units (7.32-7.45) H 02/01/18 17:37 ABG pCO2 50 mmHg (35-45) H 02/01/18 17:37 ABG pO2 88 mmHg (85-104) 02/01/18 17:37 ABG O2 Saturation 97 % (95-98) 02/01/18 17:37 PT/INR, D-dimer PT 12.0 Seconds (9.4-12.1) 02/02/18 04:33 - Impressions Impressions Abdomen/Pelvis CT 02/02/18 13:32 IMPRESSION: 1. No acute abdominopelvic abnormality. 2. Small bowel containing umbilical hernia. No associated obstruction or inflammation. 3. Sigmoid diverticulosis. 4. Calcified fibroid. D/ / Boston Gomez / Boston Gomez Interpreting Provider: Boston Gomez Consult Discharge Plan - Plan Referrals: NONE,PCP [Primary Care Provider] -
[2018-02-03] MEDS ORDERED: Insulin LISPRO 300 UNITS/3 ML VIAL SQ STA (17:13)
[2018-02-03] MEDS: Sucralfate 1 GM TABLET PO SCH ×3 (17:13→23:26)
[2018-02-03] MEDS ORDERED: *HR* LORazepam 2 MG/ML VIAL IVP ONE (18:41)
--- NOTE | 2018-02-03 18:58 | Electrocardiograph Report ---
[place] [address] Test Date: 2018-02-01 Pat Name: Abby Smart Department: [id number] Room: 2NE30 Gender: F Stand In: : 1950 Requested By: Urmila Hewitt Order Number: [id number] Reading MD: Pro Hamilton Measurements Intervals [place] Rate: 73 P: 23 DE: 177 QRS: -19 QRSD: 105 T: 65 QT: 402 QTc: 429 Interpretive Statements SINUS RHYTHM MODERATE VOLTAGE CRITERIA FOR LVH, CONSIDER NORMAL VARIANT Poor R wave progression Electronically Signed On 02-03-2018 18:56:36 EDT by Pro Hamilton
[2018-02-03] MEDS ORDERED: Insulin LISPRO 300 UNITS/3 ML VIAL SQ SCH (21:00)
[2018-02-03] MEDS: Insulin DETEMIR 100 UNIT/ML X5UNITS SQ SCH (21:32)
[2018-02-03] MEDS: traZODone 50 MG TABLET PO SCH (21:33)
[2018-02-04] MEDS: Acetylcysteine 10% 2 ML INHSOL IH SCH ×4 (03:57→21:38)
[2018-02-04] MEDS: Ipratropium/Albuterol Neb 3 ML IH SCH ×4 (03:57→21:38)
[2018-02-04 04:44] LABS: Basophils % 0.1 %; Hematocrit 36.2 % (35.3-44.9); Hemoglobin 11.4 g/dL (11.5-15.4); Immature Granulocytes % 0.7 % (0-4); Lymphocytes # 1.7 K/mcL (0.6-4.6); Lymphocytes % 25.8 %; Mean Corpuscular HGB Conc 31.5 g/dL (31.6-35.5); Mean Corpuscular Hemoglobin 28.4 pg (28.0-33.3); Mean Platelet Volume 10.6 fL (9.4-12.4); Monocytes # 0.3 K/mcL (0.0-1.3); Monocytes % 4.3 %; Neutrophils # 4.6 K/mcL (1.6-8.9); Platelet Count 133 K/mcL (140-400); Red Blood Count 4.02 M/mcL (3.82-4.97); Red Cell Distribution Width 14.3 % (11.5-14.5); Segmented Neutrophils % 69.1 %
[2018-02-04 04:45] LABS: ABG Base Excess 13 mEq/L (-2 to 3); ABG HCO3 41 mEq/L (21-27); ABG Oxygen Saturation 92 % (95-98); ABG PCO2 68 mmHg (35-45); ABG PH 7.39 pH Units (7.32-7.45); ABG PO2 69 mmHg (85-104); ABG TCO2 43 mEq/L (20-26)
[2018-02-04 05:01] LABS: Calcium 9.2 mg/dL (8.6-10.3); Potassium 4.2 mEq/L (3.5-5.1)
[2018-02-04] MEDS: MethylPREDNISolone 40 MG/ML VIAL IVP SCH ×2 (06:31→12:20)
[2018-02-04] MEDS: Vitamin B Complex/Vit C/Vit E 1 EACH TABLET PO SCH (08:46)
[2018-02-04] MEDS: Sucralfate 1 GM TABLET PO SCH ×4 (08:46→23:56)
[2018-02-04] MEDS: Gabapentin 300 MG CAPSULE PO SCH ×2 (08:46→20:16)
[2018-02-04] MEDS: Cholecalciferol (D-3) 1,000 UNIT TABLET PO SCH (08:46)
[2018-02-04] MEDS: Furosemide 40 MG TABLET PO SCH (08:46)
[2018-02-04] MEDS: Famotidine 20 MG TABLET PO SCH ×3 (08:46→20:17)
[2018-02-04] MEDS: Loratadine 10 MG TABLET PO SCH (08:46)
[2018-02-04] MEDS: Lisinopril 20 MG TABLET PO SCH (08:47)
[2018-02-04] MEDS: Multivit/Ca/Min/Fe/FA 1 TAB TABLET PO SCH (08:47)
[2018-02-04] MEDS: Aspirin 81 MG TAB.CHEW PO SCH (08:47)
[2018-02-04] MEDS: *HR* Enoxaparin 40 MG/0.4 ML SYRINGE SQ SCH (08:47)
[2018-02-04] MEDS: Nystatin POWDER 30 GM BOTTLE TP SCH ×2 (08:48→20:17)
[2018-02-04] MEDS: Levofloxacin 750 MG/150 ML 750 MG/150 ML BAG IVPB SCH (08:48)
[2018-02-04] MEDS: Insulin LISPRO 300 UNITS/3 ML VIAL SQ SCH ×7 (08:50→20:26)
[2018-02-04] MEDS: Insulin DETEMIR 100 UNIT/ML X5UNITS SQ SCH (17:08)
--- NOTE | 2018-02-04 17:30 | Internal Med Progress Note ---
Date of Encounter: 02/04/18 Time of Encounter: 17:24 - Assessment and plan (1) Acute exacerbation of chronic obstructive airways disease Current Visit: Yes Status: Acute Assessment and plan: Improving. Discontinue solumedrol; change to prednisone 40 mg PO BID starting tomorrow AM; will discharge home with taper tomorrow if blood glucose improves overnight. Continue levaquin. Continue guaifenesin, claritin, mucomyst, and chest PT. Continue scheduled duonebs. Continue supplemental O2; now at home 3- 4L by [place]. (2) Abdominal pain Current Visit: Yes Status: Resolved Assessment and plan: Resolved. CT abdomen/pelvis and stool studies negative. Continue PPI, ranitidine, and sucralfate for now; can deescalate after discharge. Qualifiers: Abdominal location: unspecified location Qualified Code(s): R10.9 - Unspecified abdominal pain (3) Chronic respiratory failure Current Visit: Yes Status: Chronic Assessment and plan: Continue home supplemental O2. Qualifiers: Respiratory failure complication: hypoxia and hypercapnia Qualified Code(s) : J96.11 - Chronic respiratory failure with hypoxia; J96.12 - Chronic respiratory failure with hypercapnia (4) Diabetes mellitus type 2 in obese Current Visit: Yes Status: Chronic Assessment and plan: Worsening hyperglycemia. Has been running 300s at home per patient. Change accuchecks and high dose SSI to Q4H. I suspect this is in large part due to high dose IV steroids. IV steroids stopped and will start PO prednisone tomorrow. Continue home levemir. Add 10 units humalog TID with meals. Plan for discharge home tomorrow AM with improved blood glucose. (5) Morbid obesity with BMI of 60.0-69.9, adult Current Visit: Yes Status: Chronic Assessment and plan: Counselled on lifestyle modifications. (6) Dyslipidemia Current Visit: Yes Status: Chronic Assessment and plan: Continue home medications. (7) CKD (chronic kidney disease) Current Visit: Yes Status: Chronic Assessment and plan: Creatinine at baseline. Avoid nephrotoxins. Repeat BMP in AM. Qualifiers: Qualified Code(s): N18.9 - Chronic kidney disease, unspecified (8) DVT prophylaxis Current Visit: Yes Status: Acute Assessment and plan: Continue SQ lovenox. - Time Spent With Patient Total time spent is greater than 50% in coordination of care (as documented) at patient's floor/unit and/or counseling patient: less than 15 minutes - Subjective Interval history: Patient had no acute events overnight. She states that breathing is "much better today." No more abdominal pain and diarrhea. She denies fever, chills, chest pain, nausea, vomiting, or changes in bladder. Blood glucose has been very high today, likely secondary to IV solumedrol, but she also states that it runs in 300s at home. She has no other complaints at this time. - Constitutional Vitals: Temp Pulse Resp BP Pulse Ox 97.6 F 60 17 118/74 93 02/04/18 15:00 02/04/18 15:00 02/04/18 15:55 02/04/18 15:00 02/04/18 15:55 General appearance: Present: cooperative, A&O X 3, morbidly obese, pleasant, no acute distress, answers questions appropriately - Respiratory Respiratory exam: Absent: accessory muscle use, rales, rhonchi Additional comments: Normal WOB, coarse breath sounds bilaterally with rare intermittent expiratory wheeze - Cardiovascular Cardiovascular exam: Present: RRR, +S1, +S2. Absent: diastolic murmur, gallop, rubs, systolic murmur Additional comments: No BLE edema - GI/Abdominal GI/Abdominal exam: Present: normal bowel sounds, soft. Absent: distended, hepatomegaly, mass, splenomegaly, tenderness - Psychiatric Psychiatric exam: Present: normal affect, normal mood. Absent: agitated, anxious, depressed - Skin Skin exam: Present: dry, intact, warm. Absent: cyanosis, rash Internal Medicine: Result - Labs CBC & Chem 7: 02/04/18 04:08 02/04/18 04:08 Labs: Short CBC 02/04/18 Range/Units 04:08 WBC 6.7 (4.3-11.1) K/mcL Hgb 11.4 L (11.5-15.4) g/dL Hct 36.2 (35.3-44.9) % Plt Count 133 L (140-400) K/mcL Neutrophils # 4.6 (1.6-8.9) K/mcL BMP 02/04/18 04:08 Sodium 137 Potassium 4.2 Chloride 93 L Carbon Dioxide 38 H BUN 37 H Creatinine 1.50 H Glucose 427 H Calcium 9.2 - ABG Interpretation ABG results: ABG ABG pH 7.39 pH Units (7.32-7.45) 02/04/18 04:42 ABG pCO2 68 mmHg (35-45) H 02/04/18 04:42 ABG pO2 69 mmHg (85-104) L 02/04/18 04:42 ABG O2 Saturation 92 % (95-98) L 02/04/18 04:42 PT/INR, D-dimer PT 12.0 Seconds (9.4-12.1) 02/02/18 04:33 Consult Discharge Plan - Plan Referrals: NONE,PCP [Primary Care Provider] -
[2018-02-04] MEDS ORDERED: Insulin LISPRO 300 UNITS/3 ML VIAL SQ SCH (20:00)
[2018-02-04] MEDS: traZODone 50 MG TABLET PO SCH (20:17)
[2018-02-05] MEDS ORDERED: Melatonin 3 MG TABLET PO PRN (00:26)
[2018-02-05] MEDS: Insulin LISPRO 300 UNITS/3 ML VIAL SQ SCH ×6 (01:01→12:57)
[2018-02-05] MEDS: Ipratropium/Albuterol Neb 3 ML IH SCH ×2 (04:25→09:51)
[2018-02-05] MEDS: Acetylcysteine 10% 2 ML INHSOL IH SCH ×2 (04:25→09:51)
[2018-02-05 04:27] LABS: Basophils % 0.1 %; Hematocrit 34.5 % (35.3-44.9); Hemoglobin 11.1 g/dL (11.5-15.4); Immature Granulocytes % 1.1 % (0-4); Lymphocytes # 1.8 K/mcL (0.6-4.6); Lymphocytes % 24.5 %; Mean Corpuscular HGB Conc 32.2 g/dL (31.6-35.5); Mean Corpuscular Hemoglobin 28.4 pg (28.0-33.3); Mean Corpuscular Volume 88.2 fL (83.0-100.0); Mean Platelet Volume 10.7 fL (9.4-12.4); Monocytes # 0.6 K/mcL (0.0-1.3); Monocytes % 7.8 %; Neutrophils # 4.9 K/mcL (1.6-8.9); Platelet Count 135 K/mcL (140-400); Red Blood Count 3.91 M/mcL (3.82-4.97); Red Cell Distribution Width 14.5 % (11.5-14.5); Segmented Neutrophils % 66.5 %
[2018-02-05 04:36] LABS: Potassium 3.9 mEq/L (3.5-5.1)
[2018-02-05] MEDS: Sucralfate 1 GM TABLET PO SCH (06:37)
[2018-02-05 07:27] VITALS: BP 180/72
[2018-02-05] MEDS ORDERED: predniSONE 20 MG TABLET PO SCH (08:00)
[2018-02-05] MEDS ORDERED: levoFLOXacin 750 MG TABLET PO SCH (09:00)
[2018-02-05] MEDS: Vitamin B Complex/Vit C/Vit E 1 EACH TABLET PO SCH (09:18)
[2018-02-05] MEDS: Cholecalciferol (D-3) 1,000 UNIT TABLET PO SCH (09:18)
[2018-02-05] MEDS: Loratadine 10 MG TABLET PO SCH (09:19)
[2018-02-05] MEDS: Furosemide 40 MG TABLET PO SCH (09:19)
[2018-02-05] MEDS: Famotidine 20 MG TABLET PO SCH (09:19)
[2018-02-05] MEDS: Gabapentin 300 MG CAPSULE PO SCH (09:20)
[2018-02-05] MEDS: Aspirin 81 MG TAB.CHEW PO SCH (09:20)
[2018-02-05] MEDS: Multivit/Ca/Min/Fe/FA 1 TAB TABLET PO SCH (09:20)
[2018-02-05] MEDS: *HR* Enoxaparin 40 MG/0.4 ML SYRINGE SQ SCH (09:20)
[2018-02-05] MEDS ORDERED: Insulin DETEMIR 100 UNIT/ML X5UNITS SQ STA (10:39)
[2018-02-05] MEDS ORDERED: Insulin DETEMIR 100 UNIT/ML X5UNITS SQ SCH ×4 (10:45→18:00)
--- NOTE | 2018-02-05 11:08 | Discharge Summary ---
- NOTES TO OUTPATIENT PROVIDER Notes to Outpatient Provider: Follow up with PCP in 2-3 days after discharge. Recheck BMP and CBC at that time. Examine blood glucose log and make adjustments to insulin regimen as necessary. Determine whether patient needs to continue carafate. Orders not resulted at time of discharge: Pending orders 02/01/18 21:46 Urinalysis reflex Microscopic [URIN] Routine Date of Encounter: 02/05/18 Time of Encounter: 11:05 - Discharge Diagnosis (1) Acute exacerbation of chronic obstructive airways disease Priority: Primary Status: Acute (2) Abdominal pain Priority: Secondary Status: Resolved Qualifiers: Abdominal location: unspecified location Qualified Code(s): R10.9 - Unspecified abdominal pain (3) Chronic respiratory failure Priority: Secondary Status: Chronic Qualifiers: Respiratory failure complication: hypoxia and hypercapnia Qualified Code(s) : J96.11 - Chronic respiratory failure with hypoxia; J96.12 - Chronic respiratory failure with hypercapnia (4) Diabetes mellitus type 2 in obese Priority: Secondary Status: Chronic (5) Morbid obesity with BMI of 60.0-69.9, adult Priority: Secondary Status: Chronic (6) Dyslipidemia Priority: Secondary Status: Chronic (7) CKD (chronic kidney disease) Priority: Secondary Status: Chronic Qualifiers: Qualified Code(s): N18.9 - Chronic kidney disease, unspecified (8) DVT prophylaxis Priority: Secondary Status: Acute Hospital course: Ms. Smart is a 67 year old female admitted for acute on chronic respiratory failure secondary to acute exacerbation of COPD. Patient was admitted to general medical floor with telemetry. She was started on IV solumedrol, IV levaquin, and scheduled duoneb treatments. She had some hyperglycemia, and insulin regimen was adjusted accordingly. She will need better outpatient management of her Type II DM by her PCP. She was subsequently weaned to her home supplemental oxygen of 3-4L by [place]. She had some abdominal pain and diarrhea during admission. Stool panel was negative. CT abdomen/pelvis was unremarkable except for some diverticulosis. Home PPI and ranitidine were continued. Sucralfate was added to regimen. Abdominal pain and diarrhea resolved on its own. She will follow up with PCP in 2-3 days after discharge. They can recheck BMP and CBC at that time. They can examine blood glucose log and make adjustments to insulin regimen as necessary. They can determine whether patient needs to continue carafate. Patient has met maximum benefit of this hospitalization and will be discharged home with home health in stable condition. Discharge discussed with: patient, family, nurse, case management, other ( Pharmacist) - Time Spent with Patient Total time spent providing and/or coordinating discharge services: Less than 30 minutes - Discharge Medications Prescriptions: GuaiFENesin ER [Mucinex] 1,200 mg PO BID 7 Days #14 tbbp.12hr Insulin ASPART [NovoLOG] 10 unit SQ TIDWM #10 mls Insulin DETEMIR [Levemir] 80 unit SQ BID #10 mls levoFLOXacin [Levaquin] 750 mg PO DAILY 2 Days #2 tablet predniSONE [PredniSONE] See Taper PO DAILY 15 Days #54 tablet Sucralfate [Carafate] 1 gm PO QIDAC 7 Days #28 tablet Home Medications: Allopurinol [Zyloprim 100 MG] 100 mg PO DAILY 09/27/15 [History] Buspirone HCl [Buspar] 15 mg PO BID 09/27/15 [History] Cholecalciferol (Vitamin D3) [Vitamin D3] 2,000 unit PO DAILY 09/27/15 [History] Furosemide [Lasix] 40 mg PO DAILY 09/27/15 [History] Gabapentin [Neurontin] 600 mg PO BID 09/27/15 [History] Insulin ASPART [Novolog] 22 - 28 unit SQ TIDWM 09/27/15 [History] Lisinopril [Zestril] 40 mg PO DAILY 09/27/15 [History] Metoprolol [Lopressor] 25 mg PO BID 09/27/15 [History] Multivitamin [Multi-Day Vitamins] 1 tab PO DAILY 09/27/15 [History] Omeprazole [PriLOSEC] 20 mg PO DAILY 09/27/15 [History] Potassium Chloride [Klor-Con Sprinkle] 8 meq PO DAILY 09/27/15 [History] Trazodone HCl [TraZODone] 100 mg PO HS 09/27/15 [History] Vitamin B Complex [B Complex] 1 tab PO DAILY 09/27/15 [History] Aspirin 81 mg PO DAILY 04/09/16 [History] DiphenhydraMINE [Benadryl] 25 mg PO Q6HR PRN 04/09/16 [History] Docusate [Colace] 300 mg PO DAILY 04/09/16 [History] Loratadine [Claritin] 10 mg PO DAILY 04/09/16 [History] Albuterol Neb [Proventil Neb] 2.5 mg IH Q4H PRN #1 inhsol 04/11/16 [Rx] Nystatin POWDER [Nystop] 1 appl TP BID #3 bottle 04/11/16 [Rx] Atorvastatin Calcium [Lipitor] 80 mg PO HS 02/01/18 [History] Levothyroxine Sodium [Synthroid] 200 mcg PO DAILY 02/01/18 [History] raNITIdine HCl [Zantac] 150 mg PO BID 02/01/18 [History] GuaiFENesin ER [Mucinex] 1,200 mg PO BID 7 Days #14 tbbp.12hr 02/05/18 [Rx] Insulin ASPART [NovoLOG] 10 unit SQ TIDWM #10 mls 02/05/18 [Rx] Insulin DETEMIR [Levemir] 80 unit SQ BID #10 mls 02/05/18 [Rx] Sucralfate [Carafate] 1 gm PO QIDAC 7 Days #28 tablet 02/05/18 [Rx] levoFLOXacin [Levaquin] 750 mg PO DAILY 2 Days #2 tablet 02/05/18 [Rx] predniSONE [PredniSONE] See Taper PO DAILY 15 Days #54 tablet 02/05/18 [Rx] Allergies/Adverse Reactions: 3 Allergy/AdvReac Type Severity Reaction Status Date / Time adhesive tape Allergy Rash Verified 02/01/18 21:49 codeine Allergy Hives Verified 02/01/18 21:49 Penicillins Allergy Rash Verified 02/01/18 21:49 Sulfa (Sulfonamide Allergy Rash Verified 02/01/18 21:49 Antibiotics) Date of admission: 02/01/18 18:55 Primary care physician: PCP NONE Consults: 02/02/18 07:09 Consult to Nurse Navigator [CONS] Routine Comment: 02/02/18 15:02 Consult to Wound Care [CONS] Routine Reason for Consult: To orde bariatric bed Call Completed: No 02/03/18 09:41 Consult to Respiratory Therapy [CONS] Stat Reason for Consult: COPD Exacerbation Call Completed: No 02/04/18 08:43 Consult for Pharmacy Education [CONS] Stat Reason for Consult: Verify with her pharmacy if she takes ativan or any other benzodiazepines at home. Thanks. Call Completed: No Discharging clinician: Bertrand Purcell Anticipated date of discharge: 02/05/18 - Constitutional Vitals: Temp Pulse Resp BP Pulse Ox 97.6 F 52 16 180/72 93 02/05/18 07:23 02/05/18 07:23 02/05/18 09:51 02/05/18 07:23 02/05/18 09:51 General appearance: Present: cooperative, A&O X 3, morbidly obese, pleasant, no acute distress, answers questions appropriately - Respiratory Respiratory exam: Absent: accessory muscle use, rales, rhonchi, wheezes Additional comments: Normal WOB, coarse breath sounds bilaterally - Cardiovascular Cardiovascular exam: Present: RRR, +S1, +S2. Absent: diastolic murmur, gallop, rubs, systolic murmur Additional comments: No BLE edema - GI/Abdominal GI/Abdominal exam: Present: normal bowel sounds, soft. Absent: distended, hepatomegaly, mass, splenomegaly, tenderness - Psychiatric Psychiatric exam: Present: normal affect, normal mood. Absent: agitated, anxious, depressed - Skin Skin exam: Present: dry, intact, warm. Absent: cyanosis, rash - Patient Status Disposition: Home Health Service Condition: Good Overall status at discharge: patient is progressing back to baseline - Discharge Instructions Follow Up With: NONE,PCP [Primary Care Provider] - Additional Instructions: Follow up with PCP in 2-3 days after discharge. Recheck BMP and CBC at that time. Examine blood glucose log and make adjustments to insulin regimen as necessary. Determine whether patient needs to continue carafate. - Diet and Activity Activity: as per physical therapy Diet: diabetic diet, low fat, low cholesterol, low salt diet, other (Cardiac Diet, Renal Diet)
--- NOTE | 2018-02-05 11:27 | Physician Discharge Referral ---
Home Health/Hosp Referral Info Transfer to: Home Health Provider in Charge Post Discharge: PCP - Diagnosis (1) Acute exacerbation of chronic obstructive airways disease Priority: Primary Status: Acute (2) Abdominal pain Priority: Secondary Status: Resolved (3) Chronic respiratory failure Priority: Secondary Status: Chronic (4) Diabetes mellitus type 2 in obese Priority: Secondary Status: Chronic (5) Morbid obesity with BMI of 60.0-69.9, adult Priority: Secondary Status: Chronic (6) Dyslipidemia Priority: Secondary Status: Chronic (7) CKD (chronic kidney disease) Priority: Secondary Status: Chronic (8) DVT prophylaxis Priority: Secondary Status: Acute - Respiratory Orders Oxygen / L per min (3-4L by [facility]) Smoking Cessation: Smoking cessation has been advised. For more information, call the [employer] Tobacco Quit Line at 0-404-JIIK-NOW. - Diet/Nutrition Diet/Nutrition Orders: No Added Salt (LUZ ELENA), Renal, Cardiac, No Concentrated Sweets (Diabetic Diet) - Activity Activity: List: Per physical therapy - Services Needed Following services are medically necessary services: Nursing, Home Health Aide, Physical Therapy, Occupational Therapy - Transfer Medications Prescriptions: GuaiFENesin ER [Mucinex] 1,200 mg PO BID 7 Days #14 tbbp.12hr Insulin ASPART [NovoLOG] 10 unit SQ TIDWM #10 mls Insulin DETEMIR [Levemir] 80 unit SQ BID #10 mls levoFLOXacin [Levaquin] 750 mg PO DAILY 2 Days #2 tablet predniSONE [PredniSONE] See Taper PO DAILY 15 Days #54 tablet Sucralfate [Carafate] 1 gm PO QIDAC 7 Days #28 tablet Home Medications: Allopurinol [Zyloprim 100 MG] 100 mg PO DAILY 09/27/15 [History] Buspirone HCl [Buspar] 15 mg PO BID 09/27/15 [History] Cholecalciferol (Vitamin D3) [Vitamin D3] 2,000 unit PO DAILY 09/27/15 [History] Furosemide [Lasix] 40 mg PO DAILY 09/27/15 [History] Gabapentin [Neurontin] 600 mg PO BID 09/27/15 [History] Insulin ASPART [Novolog] 22 - 28 unit SQ TIDWM 09/27/15 [History] Lisinopril [Zestril] 40 mg PO DAILY 09/27/15 [History] Metoprolol [Lopressor] 25 mg PO BID 09/27/15 [History] Multivitamin [Multi-Day Vitamins] 1 tab PO DAILY 09/27/15 [History] Omeprazole [PriLOSEC] 20 mg PO DAILY 09/27/15 [History] Potassium Chloride [Klor-Con Sprinkle] 8 meq PO DAILY 09/27/15 [History] Trazodone HCl [TraZODone] 100 mg PO HS 09/27/15 [History] Vitamin B Complex [B Complex] 1 tab PO DAILY 09/27/15 [History] Aspirin 81 mg PO DAILY 04/09/16 [History] DiphenhydraMINE [Benadryl] 25 mg PO Q6HR PRN 04/09/16 [History] Docusate [Colace] 300 mg PO DAILY 04/09/16 [History] Loratadine [Claritin] 10 mg PO DAILY 04/09/16 [History] Albuterol Neb [Proventil Neb] 2.5 mg IH Q4H PRN #1 inhsol 04/11/16 [Rx] Nystatin POWDER [Nystop] 1 appl TP BID #3 bottle 04/11/16 [Rx] Atorvastatin Calcium [Lipitor] 80 mg PO HS 02/01/18 [History] Levothyroxine Sodium [Synthroid] 200 mcg PO DAILY 02/01/18 [History] raNITIdine HCl [Zantac] 150 mg PO BID 02/01/18 [History] GuaiFENesin ER [Mucinex] 1,200 mg PO BID 7 Days #14 tbbp.12hr 02/05/18 [Rx] Insulin ASPART [NovoLOG] 10 unit SQ TIDWM #10 mls 02/05/18 [Rx] Insulin DETEMIR [Levemir] 80 unit SQ BID #10 mls 02/05/18 [Rx] Sucralfate [Carafate] 1 gm PO QIDAC 7 Days #28 tablet 02/05/18 [Rx] levoFLOXacin [Levaquin] 750 mg PO DAILY 2 Days #2 tablet 02/05/18 [Rx] predniSONE [PredniSONE] See Taper PO DAILY 15 Days #54 tablet 02/05/18 [Rx] Allergies/Adverse Reactions: 3 Allergy/AdvReac Type Severity Reaction Status Date / Time adhesive tape Allergy Rash Verified 02/01/18 21:49 codeine Allergy Hives Verified 02/01/18 21:49 Penicillins Allergy Rash Verified 02/01/18 21:49 Sulfa (Sulfonamide Allergy Rash Verified 02/01/18 21:49 Antibiotics) Certification: Further, I certify that my clinical findings support that this patient is homebound (i.e. absences from home require considerable and taxing effort and are for medical reasons or yarsani services or infrequently or short duration when for other reasons) because: chronic respiratory failure, COPD, CKD, Type II DM, morbid obesity, and HLD. Homebound Reason: Patient requires assistance of a person or device to safely leave home, Leaving home requires considerable and taxing effort due to condition, Severity of cardiac or pulmonary status limits activity tolerance Attestation: My signature below is to certify that this patient is under my care and that I, or nurse practitioner, or a physician's assistant professor of drama working with me, has a face-to -face encounter with this patient.
[2018-02-05] MEDS: Lisinopril 20 MG TABLET PO SCH (12:55)
== END 2018-02-05 15:39 | disposition home health service (06) ==
LOC: EMEROO 14:29 → 2NENU 14:29
PROVIDERS: ADMIT Internal Medicine Nephrology; ATTEND Internal Medicine Nephrology

== ENCOUNTER 2018-04-01 16:06 | Inpatient (IN) ==
--- NOTE | 2018-04-01 16:31 | Emergency Department Note ---
Disposition Clinical Impression: Hyperglycemia, TAMARA (acute kidney injury) Disposition: Admitted As Inpatient Condition: Good Referrals: NONE,PCP [Primary Care Provider] - Forms: ED Satisfaction Letter General Adult HPI - General Chief complaint: ED Recheck/Abnormal Lab/Rx Stated complaint: hyperglycemia Time Seen by Provider: 04/01/18 16:12 Source: patient, EMS Limitations: no limitations Nursing Notes Reviewed: Yes Vital Signs Reviewed: Yes - History of Present Illness Pain Scale: 0 - Related Data Home Medications Medication Instructions Recorded Confirmed Allopurinol [Zyloprim 100 MG] 100 mg PO DAILY 09/27/15 04/01/18 Buspirone HCl [Buspar] 15 mg PO BID 09/27/15 04/01/18 Cholecalciferol (Vitamin D3) 2,000 unit PO DAILY 09/27/15 04/01/18 [Vitamin D3] Furosemide [Lasix] 40 mg PO DAILY 09/27/15 04/01/18 Gabapentin [Neurontin] 600 mg PO BID 09/27/15 04/01/18 Insulin ASPART [Novolog] 22 - 28 unit SQ TIDWM 09/27/15 04/01/18 Lisinopril [Zestril] 40 mg PO DAILY 09/27/15 04/01/18 Metoprolol [Lopressor] 25 mg PO BID 09/27/15 04/01/18 Multivitamin [Multi-Day Vitamins] 1 tab PO DAILY 09/27/15 04/01/18 Omeprazole [PriLOSEC] 20 mg PO DAILY 09/27/15 04/01/18 Potassium Chloride [Klor-Con 8 meq PO DAILY 09/27/15 04/01/18 Sprinkle] Trazodone HCl [TraZODone] 100 mg PO HS 09/27/15 04/01/18 Vitamin B Complex [B Complex] 1 tab PO DAILY 09/27/15 04/01/18 Aspirin 81 mg PO DAILY 04/09/16 04/01/18 DiphenhydraMINE [Benadryl] 25 mg PO Q6HR PRN 04/09/16 04/01/18 Docusate [Colace] 300 mg PO DAILY 04/09/16 04/01/18 Loratadine [Claritin] 10 mg PO DAILY 04/09/16 04/01/18 Atorvastatin Calcium [Lipitor] 80 mg PO HS 02/01/18 04/01/18 Levothyroxine Sodium [Synthroid] 200 mcg PO DAILY 02/01/18 04/01/18 raNITIdine HCl [Zantac] 150 mg PO BID 02/01/18 04/01/18 Previous Rx's Medication Instructions Recorded Albuterol Neb [Proventil Neb] 2.5 mg IH Q4H PRN #1 inhsol 04/11/16 Nystatin POWDER [Nystop] 1 appl TP BID #3 bottle 04/11/16 GuaiFENesin ER [Mucinex] 1,200 mg PO BID 7 Days #14 02/05/18 tbbp.12hr Insulin DETEMIR [Levemir] 80 unit SQ BID #10 mls 02/05/18 Sucralfate [Carafate] 1 gm PO QIDAC 7 Days #28 tablet 02/05/18 Allergies Allergy/AdvReac Type Severity Reaction Status Date / Time adhesive tape Allergy Rash Verified 04/01/18 16:17 codeine Allergy Hives Verified 04/01/18 16:17 Penicillins Allergy Rash Verified 04/01/18 16:17 Sulfa (Sulfonamide Allergy Rash Verified 04/01/18 16:17 Antibiotics) Past Medical History - Past Medical History Medical history: Reports: arthritis, COPD, diabetes, GERD, hyperlipidemia, hypertension, osteoporosis, renal disease, thyroid disease, other Surgical history: Reports: other Psychiatric history: Reports: anxiety, depression - Social History Smoking Status: Never smoker Smokeless Tobacco Status: No Alcohol use: Reports: none Drug use: Reports: none Physical Exam - General Limitations: no limitations General appearance: alert, in no apparent distress Course Vital Signs Temperature 97.8 F 04/01/18 16:12 Pulse Rate 57 04/01/18 16:12 Respiratory Rate 18 04/01/18 16:12 Blood Pressure 147/40 04/01/18 16:12 O2 Sat by Pulse Oximetry 97 04/01/18 16:12 Temperature 97.8 F 04/01/18 16:12 Pulse Rate 57 04/01/18 19:00 Respiratory Rate 16 04/01/18 19:00 Blood Pressure 132/70 04/01/18 19:00 O2 Sat by Pulse Oximetry 96 04/01/18 19:00 Oxygen Delivery Oxygen Delivery Nasal Cannula Medical Decision Making - [facility] Narrative Medical decision making narrative: 1800 hrs. with the patient's elevated blood sugar, her history, and her increase in her creatinine, I think she needs to come into the hospital for control of her sugars and evaluation of her creatinine. They are discussing that now with family. - Lab Data Result diagrams: 04/01/18 16:43 04/01/18 16:43 Lab Results 04/01/18 04/01/18 04/01/18 Range/Units 16:17 16:43 16:43 WBC 6.6 (4.3-11.1) K/mcL RBC 3.69 L (3.82-4.97) M/mcL Hgb 10.8 L (11.5-15.4) g/dL Hct 34.6 L (35.3-44.9) % MCV 93.8 (83.0-100.0) fL MCH 29.3 (28.0-33.3) pg MCHC 31.2 L (31.6-35.5) g/dL RDW 15.6 H (11.5-14.5) % Plt Count 138 L (140-400) K/mcL MPV 10.5 (9.4-12.4) fL Immature Gran % 0.3 (0-4) % Seg Neutrophils % 52.4 % Lymphocytes % 37.6 % Monocytes % 5.9 % Eosinophils % 3.5 % Basophils % 0.3 % Neutrophils # 3.5 (1.6-8.9) K/mcL Lymphocytes # 2.5 (0.6-4.6) K/mcL Monocytes # 0.4 (0.0-1.3) K/mcL Eosinophils # 0.2 (0.0-0.6) K/mcL Basophils # 0.0 (0.0-0.2) K/mcL VBG pH (7.32-7.42) pH Units VBG pCO2 (41-51) mmHg VBG pO2 (25-50) mmHg VBG HCO3 (21-27) mEq/L Sodium 138 (136-145) mEq/L Potassium 4.8 (3.5-5.1) mEq/L Chloride 96 L (98-107) mEq/L Carbon Dioxide 36 H (23-29) mEq/L BUN 40 H (8-23) mg/dL Creatinine 2.21 H (0.60-1.20) mg/dL Est GFR ( Amer) 27 L (> 60) Est GFR (Non-Af Amer) 22 L (> 60) BUN/Creatinine Ratio 18 (6-26) Glucose 346 H (70-105) mg/dL POC Glucose 364 H (70-99) mg/dL Calculated Osmolality 310 H (280-300) Calcium 9.1 (8.6-10.3) mg/dL Total Bilirubin 0.4 (0.3-1.0) mg/dL AST 9 L (13-39) Units/L ALT 10 (7-52) Units/L Alkaline Phosphatase 88 (34-104) Units/L Troponin I < 0.03 (< 0.04) ng/mL Serum Total Protein 6.1 L (6.4-8.9) g/dL Albumin 3.2 L (3.5-5.7) g/dL Globulin 2.9 (2.4-3.5) g/dL Albumin/Globulin Ratio 1.1 (1.1-2.2) Beta-Hydroxybutyric Acd (0.02-0.27) mmol/L Urine Color (Yellow) Urine Clarity (Clear) Urine pH (5.0-8.0) pH Units Ur Specific [place] (1.010-1.025) Urine Protein (Neg-Trace) mg/dL Urine Glucose (UA) (Normal) mg/dL Urine Ketones (Negative) mg/dL Urine Blood (Negative) Urine Nitrite (Negative) Urine Bilirubin (Negative) Urine Urobilinogen (Normal) mg/dL Ur Leukocyte Esterase (Negative) Urine Microscopic RBC (0-3) per hpf Urine Microscopic WBC (0-3) per hpf Ur Squamous Epith Cells (None-Few) per lpf Urine Bacteria (None-Few) per hpf Hyaline Casts (None-Few) per lpf Ur Culture Indicated? (NO) Person Notif of Crit 04/01/18 04/01/18 04/01/18 Range/Units 16:43 16:59 17:13 WBC (4.3-11.1) K/mcL RBC (3.82-4.97) M/mcL Hgb (11.5-15.4) g/dL Hct (35.3-44.9) % MCV (83.0-100.0) fL MCH (28.0-33.3) pg MCHC (31.6-35.5) g/dL RDW (11.5-14.5) % Plt Count (140-400) K/mcL MPV (9.4-12.4) fL Immature Gran % (0-4) % Seg Neutrophils % % Lymphocytes % % Monocytes % % Eosinophils % % Basophils % % Neutrophils # (1.6-8.9) K/mcL Lymphocytes # (0.6-4.6) K/mcL Monocytes # (0.0-1.3) K/mcL Eosinophils # (0.0-0.6) K/mcL Basophils # (0.0-0.2) K/mcL VBG pH 7.32 (7.32-7.42) pH Units VBG pCO2 73 H* (41-51) mmHg VBG pO2 54 H (25-50) mmHg VBG HCO3 38 H (21-27) mEq/L Sodium (136-145) mEq/L Potassium (3.5-5.1) mEq/L Chloride (98-107) mEq/L Carbon Dioxide (23-29) mEq/L BUN (8-23) mg/dL Creatinine (0.60-1.20) mg/dL Est GFR ( Amer) (> 60) Est GFR (Non-Af Amer) (> 60) BUN/Creatinine Ratio (6-26) Glucose (70-105) mg/dL POC Glucose (70-99) mg/dL Calculated Osmolality (280-300) Calcium (8.6-10.3) mg/dL Total Bilirubin (0.3-1.0) mg/dL AST (13-39) Units/L ALT (7-52) Units/L Alkaline Phosphatase (34-104) Units/L Troponin I (< 0.04) ng/mL Serum Total Protein (6.4-8.9) g/dL Albumin (3.5-5.7) g/dL Globulin (2.4-3.5) g/dL Albumin/Globulin Ratio (1.1-2.2) Beta-Hydroxybutyric Acd 0.13 (0.02-0.27) mmol/L Urine Color Yellow (Yellow) Urine Clarity Cloudy A (Clear) Urine pH 5.0 (5.0-8.0) pH Units Ur Specific [place] 1.020 (1.010-1.025) Urine Protein Negative (Neg-Trace) mg/dL Urine Glucose (UA) 250 H (Normal) mg/dL Urine Ketones Negative (Negative) mg/dL Urine Blood Negative (Negative) Urine Nitrite Negative (Negative) Urine Bilirubin Negative (Negative) Urine Urobilinogen Normal (Normal) mg/dL Ur Leukocyte Esterase Negative (Negative) Urine Microscopic RBC 0-3 (0-3) per hpf Urine Microscopic WBC 0-3 (0-3) per hpf Ur Squamous Epith Cells Many H (None-Few) per lpf Urine Bacteria None Seen (None-Few) per hpf Hyaline Casts Few (None-Few) per lpf Ur Culture Indicated? NO (NO) Person Notif of Sandee fernando Attestation Statement - Attestation Attestation: This documentation is done with the assistance of Vera dictation. Despite efforts made to ensure accuracy, there may be inaccuracies in senior product designer or spelling and typographical errors. I examined this patient and my medical decision-making was reviewed with the Resident Physician. I agree with the documented findings, disposition and treatment plan as described except to the extent set forth below. Patient seen and evaluated on arrival with Dr. Dorado and myself, I agree with his evaluation management plan, supervise care the patient's stay. Patient's here due to elevated blood sugar. She says she was going between 5 and 600 home. Recent change in her medication she is not certain what was visible 3 months ago now she said her blood sugars are running high she denies any other complaints she does have some sore areas on her abdomen and underneath her breasts would look at these knees appear to be more of an area of possible fungal infection but no signs of cellulitis she has no lesions on her feet no other complaints at this time were not check blood sugar EKG and reassess. She says she like to go home if possible.
--- NOTE | 2018-04-01 16:34 | Emergency Department Note ---
Disposition Clinical Impression: Hyperglycemia, TAMARA (acute kidney injury) Disposition: Admitted As Inpatient Condition: Good Referrals: NONE,PCP [Primary Care Provider] - Forms: ED Satisfaction Letter Time of Disposition: 18:38 General Adult HPI - General Chief complaint: ED Recheck/Abnormal Lab/Rx Stated complaint: hyperglycemia Time Seen by Provider: 04/01/18 16:12 Source: patient, EMS Limitations: no limitations Nursing Notes Reviewed: Yes Vital Signs Reviewed: Yes - History of Present Illness HPI Narrative: Patient is a 67-year-old female presents emergency department for hypoglycemia. Patient states that approximately 3 months ago her diabetic medications were changed. Patient states that her blood glucose was 598 today on her home meter. Patient states that her home health nurse stated that her glucose is significantly elevated and felt that she should go be evaluated at the hospital. Patient denies any recent illnesses. She does state that she has some skin irritation under the left breast and under her pannus. Patient states that her glucose was well controlled prior to the medication being switched. Patient is unsure what the new medication is or what she was on previously. Pain Scale: 0 - Related Data Home Medications Medication Instructions Recorded Confirmed Allopurinol [Zyloprim 100 MG] 100 mg PO DAILY 09/27/15 02/01/18 Buspirone HCl [Buspar] 15 mg PO BID 09/27/15 02/01/18 Cholecalciferol (Vitamin D3) 2,000 unit PO DAILY 09/27/15 02/01/18 [Vitamin D3] Furosemide [Lasix] 40 mg PO DAILY 09/27/15 02/01/18 Gabapentin [Neurontin] 600 mg PO BID 09/27/15 02/01/18 Insulin ASPART [Novolog] 22 - 28 unit SQ TIDWM 09/27/15 02/01/18 Lisinopril [Zestril] 40 mg PO DAILY 09/27/15 02/01/18 Metoprolol [Lopressor] 25 mg PO BID 09/27/15 02/01/18 Multivitamin [Multi-Day Vitamins] 1 tab PO DAILY 09/27/15 02/01/18 Omeprazole [PriLOSEC] 20 mg PO DAILY 09/27/15 02/01/18 Potassium Chloride [Klor-Con 8 meq PO DAILY 09/27/15 02/01/18 Sprinkle] Trazodone HCl [TraZODone] 100 mg PO HS 09/27/15 02/01/18 Vitamin B Complex [B Complex] 1 tab PO DAILY 09/27/15 02/01/18 Aspirin 81 mg PO DAILY 04/09/16 02/01/18 DiphenhydraMINE [Benadryl] 25 mg PO Q6HR PRN 04/09/16 02/01/18 Docusate [Colace] 300 mg PO DAILY 04/09/16 02/01/18 Loratadine [Claritin] 10 mg PO DAILY 04/09/16 02/01/18 Atorvastatin Calcium [Lipitor] 80 mg PO HS 02/01/18 02/01/18 Levothyroxine Sodium [Synthroid] 200 mcg PO DAILY 02/01/18 02/01/18 raNITIdine HCl [Zantac] 150 mg PO BID 02/01/18 02/01/18 Previous Rx's Medication Instructions Recorded Albuterol Neb [Proventil Neb] 2.5 mg IH Q4H PRN #1 inhsol 04/11/16 Nystatin POWDER [Nystop] 1 appl TP BID #3 bottle 04/11/16 GuaiFENesin ER [Mucinex] 1,200 mg PO BID 7 Days #14 02/05/18 tbbp.12hr Insulin DETEMIR [Levemir] 80 unit SQ BID #10 mls 02/05/18 Sucralfate [Carafate] 1 gm PO QIDAC 7 Days #28 tablet 02/05/18 Allergies Allergy/AdvReac Type Severity Reaction Status Date / Time adhesive tape Allergy Rash Verified 04/01/18 16:17 codeine Allergy Hives Verified 04/01/18 16:17 Penicillins Allergy Rash Verified 04/01/18 16:17 Sulfa (Sulfonamide Allergy Rash Verified 04/01/18 16:17 Antibiotics) All systems ED: reviewed and negative except as stated. Cardiovascular: Denies: chest pain Respiratory: Denies: dyspnea Gastrointestinal: Denies: abdominal pain Endocrine: Reports: other (Elevated blood glucose) Past Medical History - Past Medical History Medical history: Reports: arthritis, COPD, diabetes, GERD, hyperlipidemia, hypertension, osteoporosis, renal disease, thyroid disease, other Surgical history: Reports: other Psychiatric history: Reports: anxiety, depression - Social History Smoking Status: Never smoker Smokeless Tobacco Status: No Alcohol use: Reports: none Drug use: Reports: none Physical Exam - General Limitations: no limitations General appearance: alert, in no apparent distress - Head Head exam: atraumatic, normocephalic - Eye Eye exam: Present: normal appearance, EOMI - Neck Neck exam: Present: normal inspection, full ROM, trachea midline - Respiratory Respiratory exam: Present: normal lung sounds bilaterally. Absent: respiratory distress, wheezes - Cardiovascular Cardiovascular exam: Present: regular rate, normal rhythm, normal heart sounds, +S1, +S2 - Abdominal Exam Abdominal exam: Present: soft, Non-Tender, normal bowel sounds, other (Patient has skin irritation under the left breast and under the left side of the pannus) - Neurological Exam Neurological exam: Present: alert, oriented X3 - Psychiatric Psychiatric exam: Present: normal affect, normal mood - Skin Skin exam: Present: warm, dry, intact Course Vital Signs Temperature 97.8 F 04/01/18 16:12 Pulse Rate 57 04/01/18 16:12 Respiratory Rate 18 04/01/18 16:12 Blood Pressure 147/40 04/01/18 16:12 O2 Sat by Pulse Oximetry 97 04/01/18 16:12 Temperature 97.8 F 04/01/18 16:12 Pulse Rate 57 04/01/18 17:46 Respiratory Rate 16 04/01/18 17:46 Blood Pressure 132/70 04/01/18 17:46 O2 Sat by Pulse Oximetry 100 04/01/18 17:46 Oxygen Delivery Oxygen Delivery Nasal Cannula Medical Decision Making - [facility] Narrative Medical decision making narrative: Due the patient presenting to the emergency department with hyperglycemia that concern for possible DKA we will obtain laboratory testing as well as an EKG. Patient's blood glucose was greater than 300. She does not appear to be in DKA at this time but does appear to have some acute kidney injury. She did not have any elevation and her serum ketones. She is not acidotic. Patient seemed well and is 10.8 however this does appear to be chronic for the patient. Patient was given 10 units of subcutaneous insulin here and IV fluids. Patient will need to be admitted to the hospital for further evaluation and management due to the patient having acute kidney injury and hyperglycemia. Called and spoke with the admitting hospitalist Dr. Art and he is except the patient to their service. Patient be admitted to the hospital this time for further evaluation and management. - Medical Records Medical records reviewed: Yes I reviewed the patient's medical records. - Lab Data Lab results reviewed: Yes I reviewed the patient's lab results. Result diagrams: 04/01/18 16:43 04/01/18 16:43 Lab Results 04/01/18 04/01/18 04/01/18 Range/Units 16:43 16:43 16:43 WBC 6.6 (4.3-11.1) K/mcL RBC 3.69 L (3.82-4.97) M/mcL Hgb 10.8 L (11.5-15.4) g/dL Hct 34.6 L (35.3-44.9) % MCV 93.8 (83.0-100.0) fL MCH 29.3 (28.0-33.3) pg MCHC 31.2 L (31.6-35.5) g/dL RDW 15.6 H (11.5-14.5) % Plt Count 138 L (140-400) K/mcL MPV 10.5 (9.4-12.4) fL Immature Gran % 0.3 (0-4) % Seg Neutrophils % 52.4 % Lymphocytes % 37.6 % Monocytes % 5.9 % Eosinophils % 3.5 % Basophils % 0.3 % Neutrophils # 3.5 (1.6-8.9) K/mcL Lymphocytes # 2.5 (0.6-4.6) K/mcL Monocytes # 0.4 (0.0-1.3) K/mcL Eosinophils # 0.2 (0.0-0.6) K/mcL Basophils # 0.0 (0.0-0.2) K/mcL VBG pH (7.32-7.42) pH Units VBG pCO2 (41-51) mmHg VBG pO2 (25-50) mmHg VBG HCO3 (21-27) mEq/L Sodium 138 (136-145) mEq/L Potassium 4.8 (3.5-5.1) mEq/L Chloride 96 L (98-107) mEq/L Carbon Dioxide 36 H (23-29) mEq/L BUN 40 H (8-23) mg/dL Creatinine 2.21 H (0.60-1.20) mg/dL Est GFR ( Amer) 27 L (> 60) Est GFR (Non-Af Amer) 22 L (> 60) BUN/Creatinine Ratio 18 (6-26) Glucose 346 H (70-105) mg/dL Calculated Osmolality 310 H (280-300) Calcium 9.1 (8.6-10.3) mg/dL Total Bilirubin 0.4 (0.3-1.0) mg/dL AST 9 L (13-39) Units/L ALT 10 (7-52) Units/L Alkaline Phosphatase 88 (34-104) Units/L Troponin I < 0.03 (< 0.04) ng/mL Serum Total Protein 6.1 L (6.4-8.9) g/dL Albumin 3.2 L (3.5-5.7) g/dL Globulin 2.9 (2.4-3.5) g/dL Albumin/Globulin Ratio 1.1 (1.1-2.2) Beta-Hydroxybutyric Acd 0.13 (0.02-0.27) mmol/L Urine Color (Yellow) Urine Clarity (Clear) Urine pH (5.0-8.0) pH Units Ur Specific [place] (1.010-1.025) Urine Protein (Neg-Trace) mg/dL Urine Glucose (UA) (Normal) mg/dL Urine Ketones (Negative) mg/dL Urine Blood (Negative) Urine Nitrite (Negative) Urine Bilirubin (Negative) Urine Urobilinogen (Normal) mg/dL Ur Leukocyte Esterase (Negative) Urine Microscopic RBC (0-3) per hpf Urine Microscopic WBC (0-3) per hpf Ur Squamous Epith Cells (None-Few) per lpf Urine Bacteria (None-Few) per hpf Hyaline Casts (None-Few) per lpf Ur Culture Indicated? (NO) Person Notif of Crit 04/01/18 04/01/18 Range/Units 16:59 17:13 WBC (4.3-11.1) K/mcL RBC (3.82-4.97) M/mcL Hgb (11.5-15.4) g/dL Hct (35.3-44.9) % MCV (83.0-100.0) fL MCH (28.0-33.3) pg MCHC (31.6-35.5) g/dL RDW (11.5-14.5) % Plt Count (140-400) K/mcL MPV (9.4-12.4) fL Immature Gran % (0-4) % Seg Neutrophils % % Lymphocytes % % Monocytes % % Eosinophils % % Basophils % % Neutrophils # (1.6-8.9) K/mcL Lymphocytes # (0.6-4.6) K/mcL Monocytes # (0.0-1.3) K/mcL Eosinophils # (0.0-0.6) K/mcL Basophils # (0.0-0.2) K/mcL VBG pH 7.32 (7.32-7.42) pH Units VBG pCO2 73 H* (41-51) mmHg VBG pO2 54 H (25-50) mmHg VBG HCO3 38 H (21-27) mEq/L Sodium (136-145) mEq/L Potassium (3.5-5.1) mEq/L Chloride (98-107) mEq/L Carbon Dioxide (23-29) mEq/L BUN (8-23) mg/dL Creatinine (0.60-1.20) mg/dL Est GFR ( Amer) (> 60) Est GFR (Non-Af Amer) (> 60) BUN/Creatinine Ratio (6-26) Glucose (70-105) mg/dL Calculated Osmolality (280-300) Calcium (8.6-10.3) mg/dL Total Bilirubin (0.3-1.0) mg/dL AST (13-39) Units/L ALT (7-52) Units/L Alkaline Phosphatase (34-104) Units/L Troponin I (< 0.04) ng/mL Serum Total Protein (6.4-8.9) g/dL Albumin (3.5-5.7) g/dL Globulin (2.4-3.5) g/dL Albumin/Globulin Ratio (1.1-2.2) Beta-Hydroxybutyric Acd (0.02-0.27) mmol/L Urine Color Yellow (Yellow) Urine Clarity Cloudy A (Clear) Urine pH 5.0 (5.0-8.0) pH Units Ur Specific [place] 1.020 (1.010-1.025) Urine Protein Negative (Neg-Trace) mg/dL Urine Glucose (UA) 250 H (Normal) mg/dL Urine Ketones Negative (Negative) mg/dL Urine Blood Negative (Negative) Urine Nitrite Negative (Negative) Urine Bilirubin Negative (Negative) Urine Urobilinogen Normal (Normal) mg/dL Ur Leukocyte Esterase Negative (Negative) Urine Microscopic RBC 0-3 (0-3) per hpf Urine Microscopic WBC 0-3 (0-3) per hpf Ur Squamous Epith Cells Many H (None-Few) per lpf Urine Bacteria None Seen (None-Few) per hpf Hyaline Casts Few (None-Few) per lpf Ur Culture Indicated? NO (NO) Person Notif of Sandee fernando - Radiology Data Radiology results reviewed: Yes I reviewed the patient's radiology results. - EKG Data EKG #1 EKG attestation: Yes I reviewed and interpreted this EKG. EKG results narrative: EKG shows a sinus rhythm rate of 57 bpm, MI interval of 188, QRS duration of 107 , QTc of 444 with a normal axis. No evidence of STEMI and EKG.
[2018-04-01 16:58] LABS: Basophils % 0.3 %; Eosinophils # 0.2 K/mcL (0.0-0.6); Eosinophils % 3.5 %; Hematocrit 34.6 % (35.3-44.9); Hemoglobin 10.8 g/dL (11.5-15.4); Immature Granulocytes % 0.3 % (0-4); Lymphocytes # 2.5 K/mcL (0.6-4.6); Lymphocytes % 37.6 %; Mean Corpuscular HGB Conc 31.2 g/dL (31.6-35.5); Mean Corpuscular Hemoglobin 29.3 pg (28.0-33.3); Mean Corpuscular Volume 93.8 fL (83.0-100.0); Mean Platelet Volume 10.5 fL (9.4-12.4); Monocytes # 0.4 K/mcL (0.0-1.3); Monocytes % 5.9 %; Neutrophils # 3.5 K/mcL (1.6-8.9); Platelet Count 138 K/mcL (140-400); Red Blood Count 3.69 M/mcL (3.82-4.97); Red Cell Distribution Width 15.6 % (11.5-14.5); Segmented Neutrophils % 52.4 %
[2018-04-01 17:06] LABS: VBG HCO3 38 mEq/L (21-27); VBG PCO2 73 mmHg (41-51); VBG PH 7.32 pH Units (7.32-7.42); VBG PO2 54 mmHg (25-50)
[2018-04-01 17:16] LABS: Alanine Aminotransferase 10 Units/L (7-52); Albumin 3.2 g/dL (3.5-5.7); Albumin/Globulin Ratio 1.1 (1.1-2.2); Alkaline Phosphatase 88 Units/L (34-104); Aspartate Amino Transferase 9 Units/L (13-39); BUN/Creatinine Ratio 18 (6-26); Bilirubin,Total 0.4 mg/dL (0.3-1.0); Blood Urea Nitrogen 40 mg/dL (8-23); Calcium 9.1 mg/dL (8.6-10.3); Carbon Dioxide 36 mEq/L (23-29); Chloride 96 mEq/L (98-107); Globulin 2.9 g/dL (2.4-3.5); Glucose 346 mg/dL (70-105); Osmolality,Calculated 310 (280-300); Potassium 4.8 mEq/L (3.5-5.1); Sodium 138 mEq/L (136-145); Total Protein 6.1 g/dL (6.4-8.9); Troponin I < 0.03 ng/mL (< 0.04); eGFR For Non-African Americans 22 (> 60)
[2018-04-01 17:49] LABS: Bilirubin,Urine Negative (Negative); Blood,Urine Negative (Negative); Clarity,Urine Cloudy (Clear); Color,Urine Yellow (Yellow); Glucose,Urine (UA) 250 mg/dL (Normal); Ketones,Urine Negative (Negative); Leukocyte Esterase,Urine Negative (Negative); Nitrite,Urine Negative (Negative); Protein,Urine Negative (Neg-Trace); Urobilinogen,Urine Normal (Normal)
[2018-04-01] MEDS ORDERED: 0.9 % Sodium Chloride 1,000 ML IVC ONE (17:50)
[2018-04-01] MEDS ORDERED: Insulin Regular, Human 100 UNIT/ML SQ ONE (17:51)
[2018-04-01 17:52] LABS: Bacteria,Urine None Seen per hpf (None-Few); Hyaline Casts,Urine Few per lpf (None-Few); RBC,Urine 0-3 per hpf (0-3); Squamous Epithelial Cell,Urine Many per lpf (None-Few); WBC,Urine 0-3 per hpf (0-3)
[2018-04-01] MEDS ORDERED: Insulin LISPRO 300 UNITS/3 ML VIAL SQ ONE (18:15)
[2018-04-01] MEDS ORDERED: *HR* Dextrose 50 % in Water (Syg) 50 ML SYRINGE IVP PRN (20:21)
[2018-04-01] MEDS ORDERED: Dextrose Gel 15 GM/37.5 ML TUBE PO PRN ×2 (20:21)
[2018-04-01] MEDS ORDERED: D5% in Water 1,000 ML IVC PRN (20:21)
[2018-04-01] MEDS ORDERED: Naloxone 0.4 MG/ML INJ IVP PRN (20:21)
[2018-04-01] MEDS ORDERED: 0.9 % Sodium Chloride 1,000 ML IVC SCH (20:30)
--- NOTE | 2018-04-01 20:44 | Internal Med History&Physical ---
<Reji Schultz - Last Filed: 04/01/18 20:37> Date of Encounter: 04/01/18 Time of Encounter: 20:38 Internal Medicine - H&P: HPI Chief complaint: Hyperglycemia Admitted From: Home Plans for Post Hospital Care: Home History of present illness: Ms. Smart is a 67 year old female presents with chief complaint of hyperglycemia. Reports her PCP changed her insulin regiment a month ago and since then she has been hyperglycemic with her glucose increasing to upper 500s. Due to this patient's home health nurse advised her to go to the emergency room. At home patient takes Levemir 80 units twice a day with a sliding scale insulin. Patient reports she does not take any mealtime insulin even though in her home medication list she is prescribed insulin aspart. It appears she is taking her short-acting insulin with her long-acting insulin. Furthermore she is not compliant with a diabetic diet and reports eats very fatty foods, foods from fast food restaurants. Her last hemoglobin A1c was 8.0 on 04/09/16. She reports polydipsia, polyuria, headaches, blurry vision, numbness and tingling in her bilateral lower feet. She also reports chronic aching abdominal pain. She denies chest pain, shortness of breath, nausea, vomiting, diarrhea, hematochezia, melena. Patient was also found to have an TAMARA on presentation. She reports her PCP increased her Lasix regimen to 40 mg twice a day from daily one month ago. She reports adequate urine production. She denies use of NSAIDs or recent exposure to IV contrast. Past Med Surg Social Fam HX - Past Medical History Medical history: arthritis, COPD, diabetes, GERD, hyperlipidemia, hypertension, osteoporosis, renal disease, thyroid disease, other Additional medical history: heart murmur, cellulitis Psychiatric history: anxiety, depression - Past Surgical History Surgical History: other Additional surgical history: left leg surgery with wound vac, fistula - Social History Smoking Status: Never smoker Smokeless Tobacco Status: No Alcohol use: none Drug use: none - Family History Mother Living Status: Hx Family Cardiac Disorders: Yes Hx Family Respiratory Disorders: No Hx Family Cancer: Yes (COLON CANCER) Hx Family GI Disorders: Yes Hx Family Endocrine Disorder: Yes Internal Medicine - H&P: Meds Allopurinol [Zyloprim 100 MG] 100 mg PO DAILY 09/27/15 [History] Buspirone HCl [Buspar] 15 mg PO BID 09/27/15 [History] Cholecalciferol (Vitamin D3) [Vitamin D3] 2,000 unit PO DAILY 09/27/15 [History] Furosemide [Lasix] 40 mg PO DAILY 09/27/15 [History] Gabapentin [Neurontin] 600 mg PO BID 09/27/15 [History] Insulin ASPART [Novolog] 22 - 28 unit SQ TIDWM 09/27/15 [History] Lisinopril [Zestril] 40 mg PO DAILY 09/27/15 [History] Metoprolol [Lopressor] 25 mg PO BID 09/27/15 [History] Multivitamin [Multi-Day Vitamins] 1 tab PO DAILY 09/27/15 [History] Omeprazole [PriLOSEC] 20 mg PO DAILY 09/27/15 [History] Potassium Chloride [Klor-Con Sprinkle] 8 meq PO DAILY 09/27/15 [History] Trazodone HCl [TraZODone] 100 mg PO HS 09/27/15 [History] Vitamin B Complex [B Complex] 1 tab PO DAILY 09/27/15 [History] Aspirin 81 mg PO DAILY 04/09/16 [History] DiphenhydraMINE [Benadryl] 25 mg PO Q6HR PRN 04/09/16 [History] Docusate [Colace] 300 mg PO DAILY 04/09/16 [History] Loratadine [Claritin] 10 mg PO DAILY 04/09/16 [History] Albuterol Neb [Proventil Neb] 2.5 mg IH Q4H PRN #1 inhsol 04/11/16 [Rx] Nystatin POWDER [Nystop] 1 appl TP BID #3 bottle 04/11/16 [Rx] Atorvastatin Calcium [Lipitor] 80 mg PO HS 02/01/18 [History] Levothyroxine Sodium [Synthroid] 200 mcg PO DAILY 02/01/18 [History] raNITIdine HCl [Zantac] 150 mg PO BID 02/01/18 [History] GuaiFENesin ER [Mucinex] 1,200 mg PO BID 7 Days #14 tbbp.12hr 02/05/18 [Rx] Insulin DETEMIR [Levemir] 80 unit SQ BID #10 mls 02/05/18 [Rx] Sucralfate [Carafate] 1 gm PO QIDAC 7 Days #28 tablet 02/05/18 [Rx] 3 Allergy/AdvReac Type Severity Reaction Status Date / Time adhesive tape Allergy Rash Verified 04/01/18 16:17 codeine Allergy Hives Verified 04/01/18 16:17 Penicillins Allergy Rash Verified 04/01/18 16:17 Sulfa (Sulfonamide Allergy Rash Verified 04/01/18 16:17 Antibiotics) All Systems PM: A 10-system review of systems was performed and is negative for pertinent findings except as documented above in the HPI. Review of systems: Constitutional: Denies fever, chills HEENT: Denies headache, neck pain, eye pain, eye discharge ,sore throat, rhinorrhea. Reports blurry vision, difficulty hearing, Heart: Denies chest pain palpitations, LE edema Lungs: Denies shortness of breath cough Abdomen: Reports abdominal pain. Denies nausea vomiting diarrhea MKS: denies back pain, falls Kidney: Denies dysuria, hematuria Skin: Reports rash in her right ear, pressure ulcer under left flank tenderness , pressure ulcer under left breast Neuro: Reports LE numbness and tingling Psych: Reports depression and anxiety - Constitutional Vitals: Temp Pulse Resp BP Pulse Ox 97.8 F 57 16 132/70 96 04/01/18 16:12 04/01/18 19:00 04/01/18 19:00 04/01/18 19:00 04/01/18 19:00 Exam: General: pleasant, without distress HEENT: Head atraumatic, normocephalic, EOMI, PERRL, absent ear discharge or trauma, moist Mucous Membranes, uvula midline Neck: nontender to palpation, absent lymphadenopathy, Cardiovascualr: Regular rate and rhythm with no murmur, gallops or rubs, mild bilateral pedal edema, pedal and radial pulses 2 out of 4 Lungs: Clear to auscultation bilaterally, not in respiratory distress Abdomen: Soft nontender, nondistended positive bowel sounds, Skin: warm and dry, absent rash, pressure ulcer stage II left flank pannus and beneath left breast MSK: absent clubbing, cyanosis, joints without swelling Neuro: Cranial nerves II through XII intact, UE and LE sensation equal bilaterally, Psych: poor insight and judgement, anxious, Internal Med - H&P Results - Labs CBC & Chem 7: 04/01/18 16:43 04/01/18 16:43 Labs: Short CBC 04/01/18 Range/Units 16:43 WBC 6.6 (4.3-11.1) K/mcL Hgb 10.8 L (11.5-15.4) g/dL Hct 34.6 L (35.3-44.9) % Plt Count 138 L (140-400) K/mcL Neutrophils # 3.5 (1.6-8.9) K/mcL BMP 04/01/18 16:43 Sodium 138 Potassium 4.8 Chloride 96 L Carbon Dioxide 36 H BUN 40 H Creatinine 2.21 H Glucose 346 H Calcium 9.1 Cardiac Enzymes 04/01/18 Range/Units 16:43 Troponin I < 0.03 (< 0.04) ng/mL Liver Function 04/01/18 Range/Units 16:43 Total Bilirubin 0.4 (0.3-1.0) mg/dL AST 9 L (13-39) Units/L ALT 10 (7-52) Units/L Alkaline Phosphatase 88 (34-104) Units/L Albumin 3.2 L (3.5-5.7) g/dL Urine 04/01/18 Range/Units 17:13 Urine Color Yellow (Yellow) Urine Clarity Cloudy A (Clear) Urine pH 5.0 (5.0-8.0) pH Units Ur Specific [place] 1.020 (1.010-1.025) Urine Protein Negative (Neg-Trace) mg/dL Urine Glucose (UA) 250 H (Normal) mg/dL - ABG Interpretation ABG results: 04/01/18 16:59 VBG pH 7.32 VBG pCO2 73 H* VBG pO2 54 H VBG HCO3 38 H - Assessment and plan (1) Uncontrolled diabetes mellitus type 2 without complications Current Visit: Yes Status: Acute Assessment and plan: 67-year-old female presents to the emergency department for hyperglycemia Patient reports her glucose levels reach in the upper 500s in the last month ever since her PCP changed her insulin regimen. Anion gap is 6. She reports blurry vision, polyuria, polydipsia Patient has a very poor diet consisting of fast food, fatty foods She is now well educated on how to take her insulin. Patient takes Levemir 80 units twice a day and along with that takes a sliding scale short acting insulin and aspart. Patient should be taking the insulin as part before meals and now with her long-acting insulin. Patient's last hemoglobin A1c was 2 years ago which was 8.0 Patient educated on proper diabetic diet, insulin administration, and benefits of weight loss as her BMI 74 We will repeat A1c start patient on a weight-based insulin regimen as her diet will be better controlled in the hospital. She will also be on a moderate sliding scale insulin (2) TAMARA (acute kidney injury) Current Visit: Yes Status: Acute Assessment and plan: TAMARA on CKD3 Patient's baseline creatinine is around 1.2-1.4 She presented with a creatinine of 2.21 BUN 40 Likely prerenal as patient had increase in her Lasix dose recently We will give patient IV fluids total of 2 L recheck BMP tomorrow morning Patient's Lasix dose may need to be adjusted prior to discharge. (3) Anxiety and depression Current Visit: Yes Status: Chronic Assessment and plan: Patient reports a history of anxiety and depression Controlled Continue home medications (4) History of hypertension Current Visit: Yes Status: Chronic Assessment and plan: Patient has a history of hypertension Currently she is in a care I will hold her lisinopril Continue metoprolol (5) Hypothyroid Current Visit: Yes Status: Chronic Assessment and plan: controlled continue home levothyroxine Qualifiers: Hypothyroidism type: other Qualified Code(s): E03.8 - Other specified hypothyroidism (6) History of congestive heart failure Current Visit: Yes Status: Chronic Assessment and plan: Patient has a history of diastolic congestive heart failure She is not an exacerbation. She reports her PCP increased her Lasix from 40 mg daily to 40 mg twice a day Currently we will hold Lasix due to TAMARA - Time Spent With Patient Total time spent is greater than 50% in coordination of care (as documented) at patient's floor/unit and/or counseling patient: <Stoney Art - Last Filed: 04/02/18 03:09> Date of Encounter: 04/02/18 Time of Encounter: 03:00 - Constitutional Constitutional: no chills, no fever(s) - EENT Eyes: blurry vision, change in vision Ears: no ear pain, no tinnitus Nose, mouth and throat: no nasal congestion, no sore throat - Cardiovascular Cardiovascular ROS IM: no chest pain, no dyspnea - Respiratory Respiratory: no cough, no chest congestion, no excessive phlegm production - Gastrointestinal Gastrointestinal: no abdominal pain, no diarrhea, no nausea, no vomiting - Genitourinary Genitourinary: no dysuria, no flank pain, no hematuria - Musculoskeletal Musculoskeletal ROS IM: no back pain - Integumentary Integumentary IM: no rash - Neurological Neurological ROS: no focal weakness, no frequent falls, no headache(s) - Psychiatric Psychiatric: no anxiety, no depression - Endocrine Endocrine IM: polydipsia, polyuria, no cold intolerance, no heat intolerance - Constitutional Vitals: Temp Pulse Resp BP Pulse Ox 97.6 F 57 18 121/48 98 04/02/18 01:04/02/18 01:04/02/18 01:04/02/18 01:04/02/18 01:17 General appearance: Present: cooperative, A&O X 3, pleasant, no acute distress - Head Head exam: Present: normal inspection - Eye Eye exam: Present: EOMI, PERRL. Absent: scleral icterus - Neck Neck exam general surgery: Present: supple - Respiratory Respiratory exam: Present: CTAB. Absent: chest wall tenderness, rales, rhonchi , wheezes - Cardiovascular Cardiovascular exam: Present: RRR, +S1, +S2. Absent: diastolic murmur, systolic murmur - GI/Abdominal GI/Abdominal exam: Present: normal bowel sounds, soft. Absent: tenderness - Extremities Exam Extremities exam: Present: warm, radial pulses palpable and symmetrical. Absent : calf tenderness, joint swelling, tenderness - Back Exam Back exam: Absent: CVA tenderness (L), CVA tenderness (R) - Neurological Exam Neurological exam: Present: alert, CN II-XII intact, oriented X3, no focal deficits - Psychiatric Psychiatric exam: Present: normal affect, normal mood - Skin Skin exam: Present: dry, warm. Absent: intact Internal Med - H&P Results - Labs CBC & Chem 7: 04/01/18 16:43 04/01/18 16:43 - Assessment and plan (1) Hypothyroid Current Visit: Yes Status: Chronic Qualifiers: Hypothyroidism type: other Qualified Code(s): E03.8 - Other specified hypothyroidism (2) TAMARA (acute kidney injury) Current Visit: Yes Status: Acute (3) Uncontrolled diabetes mellitus type 2 without complications Current Visit: Yes Status: Acute (4) Anxiety and depression Current Visit: Yes Status: Chronic (5) History of hypertension Current Visit: Yes Status: Chronic (6) History of congestive heart failure Current Visit: Yes Status: Chronic - Time Spent With Patient Total time spent is greater than 50% in coordination of care (as documented) at patient's floor/unit and/or counseling patient: - Attending Attestation I discussed the patient [place], past medical history, review of systems, lab data , and exam findings with Dr. Schultz. I then saw and examined patient independently. She confirms that her diet has been very poor and not diabetic compliant. Furthermore, she has also been fairly noncompliant with her insulin and glucose monitoring. She is rather sedentary and not very mobile. She complains of having some vision changes in last few days with blurred vision. She also has had some polydipsia and polyuria. She denies any vomiting or diarrhea. She denies any fevers, chills, or night sweats. I counseled patient on the need to adhere to a diabetic diet and strict glucose monitoring. She does state that her medication has changed recently for her insulin. Patient does not have any evidence of DKA. Rather, she has poorly controlled diabetes and acute kidney injury. She does not have any evidence of CHF this present time. I agree with lalo IV fluid hydration as well as glucose control and diabetic education. Other than my comments above and noted physical exam findings, I agree with Dr. Schultz's assessment and plan.
[2018-04-01] MEDS ORDERED: Insulin DETEMIR 100 UNIT/ML X5UNITS SQ SCH (21:00)
[2018-04-02] MEDS: Nystatin POWDER 30 GM BOTTLE TP SCH ×4 (01:39→22:19)
[2018-04-02] MEDS: Gabapentin 300 MG CAPSULE PO SCH ×3 (01:56→22:19)
[2018-04-02] MEDS: Insulin LISPRO 300 UNITS/3 ML VIAL SQ SCH ×8 (01:56→22:09)
[2018-04-02] MEDS: traZODone 50 MG TABLET PO SCH ×2 (01:57→22:19)
[2018-04-02] MEDS: *HR* Heparin 5,000 UNIT/ML VIAL SQ SCH ×4 (01:58→22:20)
[2018-04-02 04:50] LABS: Calcium 8.9 mg/dL (8.6-10.3); Potassium 4.2 mEq/L (3.5-5.1)
[2018-04-02] MEDS: Sucralfate 1 GM TABLET PO SCH ×5 (05:56→22:19)
[2018-04-02] MEDS: Loratadine 10 MG TABLET PO SCH (07:42)
[2018-04-02] MEDS: Aspirin 81 MG TAB.CHEW PO SCH (07:43)
--- NOTE | 2018-04-02 08:37 | Internal Med Progress Note ---
Hospitalist Progress Note - Encounter Date of Encounter: 04/02/18 Time of Encounter: 08:34 - Subjective Interval History: Patient evaluated at bedside, reports that she feels okay, denies any complaint. Denies shortness of breath, chest pain, nausea, vomiting. No dysuria. No overnight event. - Exam Vitals: Temp Pulse Resp BP Pulse Ox 97.9 F 56 18 123/57 98 04/02/18 07:18 04/02/18 07:18 04/02/18 07:18 04/02/18 07:18 04/02/18 07:18 Exam: General: Alert and orientedx3. no acute distress. Morbidly obese Skin:Normal color, no rash, no lesions. Cardiovascular: Normal S1 & S2, no rubs, murmurs or gallops. Lungs: Clear to auscultation bilaterally, no wheezes or crackles. Abdomen:Soft, non-tender, no rigidity. Extremities: Chronic venous stasis in the left lower extremity, no edema or tenderness, no joint swelling. Neurological: Normal cognition. CN II-XII intact. Rest of the physical exam is non contributory - Assessment and Plan (1) TAMARA (acute kidney injury) Current Visit: Yes Status: Acute Assessment and Plan: Plan: - Continue holding furosemide patient has no signs of volume overload - will continue 0.45%NS@75mls/hr. - Avoid nephrotoxic medications - If not improvement in kidney function with IV fluids will consider Nephrology consult (2) Uncontrolled diabetes mellitus type 2 without complications Current Visit: Yes Status: Acute Assessment and Plan: Multifactorial. Lack of proper education about insulin and not compliant with diet. Plan: - Diabetic education - Switch levemir to 25 untis BID - Continue Lispro 18 units AC and High dose sliding scale - Diabetic diet. (3) Hypothyroid Current Visit: Yes Status: Chronic Assessment and Plan: Plan: - Continue levothyroxine 200 mcg daily (4) History of hypertension Current Visit: Yes Status: Chronic Assessment and Plan: BP well controlled. Plan: - On metoprolol 25mg BID - Furosemide has been held due to TAMARA (5) History of congestive heart failure Current Visit: Yes Status: Chronic Assessment and Plan: Last echocardiogram had normal LV function and mild pulmonary hypertension. lung clear to auscultation. No signs of volume overload Plan: - on gentle IV hydration due tot TAMARA - On a beta alonzo - Furosemide has been on hold. Will not start a CRISPIN or ARB now due to TAMARA. (6) Chronic respiratory failure Current Visit: No Status: Chronic Assessment and Plan: On three and 1/2 litters of O2 at home. Plan: - Continue O2 by nasal cannula. - Titrate for O2 saturation >92% (7) Dyslipidemia Current Visit: No Status: Chronic Assessment and Plan: Plan: - On atorvastatin (8) COPD (chronic obstructive pulmonary disease) Current Visit: Yes Status: Chronic Assessment and Plan: No on acute exacerbation. Plan: - Stated on Albuterol Nebs Q6RT PRN for wheezing DVT Prophylaxis: High risk for DVT due to immobility. Patient is mostly bedridden. Plan: - Heparin 5000 units Q12HR SubQ - Time Spent with Patient Total time spent is greater than 50% in coordination of care (as documented) at patient's floor/unit and/or counseling patient: Greater than 35 minutes Plan of Care Discussed with: patient Internal Medicine: Result - Labs CBC & Chem 7: 04/01/18 16:43 04/02/18 04:09 Labs: BMP 04/02/18 04:09 Sodium 138 Potassium 4.2 Chloride 97 L Carbon Dioxide 35 H BUN 38 H Creatinine 2.11 H Glucose 287 H Calcium 8.9 Consult Discharge Plan - Plan Referrals: NONE,PCP [Primary Care Provider] - (3) Hypothyroid Qualifiers: Hypothyroidism type: other Qualified Code(s): E03.8 - Other specified hypothyroidism (6) Chronic respiratory failure Qualifiers: Respiratory failure complication: hypoxia and hypercapnia Qualified Code(s): J96.11 - Chronic respiratory failure with hypoxia; J96.12 - Chronic respiratory failure with hypercapnia (8) COPD (chronic obstructive pulmonary disease) Qualifiers: COPD type: unspecified COPD Qualified Code(s): J44.9 - Chronic obstructive pulmonary disease, unspecified
[2018-04-02] MEDS ORDERED: Albuterol 2.5 MG/3 ML NEBULIZER IH PRN (08:49)
[2018-04-02 09:09] LABS: Estimated Average Glucose 283 mg/dl; Hemoglobin A1C 11.5 %
[2018-04-02] MEDS: Insulin DETEMIR 100 UNIT/ML X5UNITS SQ SCH ×2 (09:27→22:19)
[2018-04-03 04:19] LABS: Calcium 8.7 mg/dL (8.6-10.3); Magnesium 1.4 mg/dL (1.6-2.6); Potassium 4.6 mEq/L (3.5-5.1)
[2018-04-03 04:21] LABS: Basophils % 0.3 %; Eosinophils # 0.2 K/mcL (0.0-0.6); Eosinophils % 3.4 %; Hematocrit 31.5 % (35.3-44.9); Hemoglobin 9.6 g/dL (11.5-15.4); Immature Granulocytes % 0.3 % (0-4); Lymphocytes # 2.9 K/mcL (0.6-4.6); Lymphocytes % 41.4 %; Mean Corpuscular HGB Conc 30.5 g/dL (31.6-35.5); Mean Corpuscular Hemoglobin 28.6 pg (28.0-33.3); Mean Corpuscular Volume 93.8 fL (83.0-100.0); Mean Platelet Volume 11.4 fL (9.4-12.4); Monocytes # 0.5 K/mcL (0.0-1.3); Monocytes % 6.5 %; Neutrophils # 3.4 K/mcL (1.6-8.9); Platelet Count 140 K/mcL (140-400); Red Blood Count 3.36 M/mcL (3.82-4.97); Red Cell Distribution Width 15.8 % (11.5-14.5); Segmented Neutrophils % 48.1 %
[2018-04-03] MEDS: *HR* Heparin 5,000 UNIT/ML VIAL SQ SCH ×3 (06:18→21:25)
[2018-04-03] MEDS: Loratadine 10 MG TABLET PO SCH (08:25)
[2018-04-03] MEDS: Gabapentin 300 MG CAPSULE PO SCH ×2 (08:26→21:23)
[2018-04-03] MEDS: Insulin LISPRO 300 UNITS/3 ML VIAL SQ SCH ×7 (08:26→21:24)
[2018-04-03] MEDS: Sucralfate 1 GM TABLET PO SCH ×4 (08:26→21:25)
[2018-04-03] MEDS: Aspirin 81 MG TAB.CHEW PO SCH (08:26)
[2018-04-03] MEDS: Insulin DETEMIR 100 UNIT/ML X5UNITS SQ SCH ×2 (08:28→21:25)
--- NOTE | 2018-04-03 08:35 | Internal Med Progress Note ---
Hospitalist Progress Note - Encounter Date of Encounter: 04/03/18 Time of Encounter: 08:33 - Subjective Interval History: Patient evaluated at bedside, stated that her breathing is ok, denies SOB, chest pain, nausea or vomiting. No event overnight. - Exam Vitals: Temp Pulse Resp BP Pulse Ox 98.2 F 58 18 107/49 92 04/03/18 07:22 04/03/18 07:22 04/03/18 07:22 04/03/18 07:22 04/03/18 07:22 Exam: General: Alert and orientedx3. no acute distress. Morbidly obese Skin:Normal color, no rash, no lesions. Cardiovascular: Normal S1 & S2, no rubs, murmurs or gallops. Lungs: expiratory wheezing bilaterally, no rales or crackles. Abdomen:Obese, Soft, non-tender, no rigidity. Extremities: Chronic venous stasis in the left lower extremity, no edema or tenderness, no joint swelling. Neurological: Normal cognition. CN II-XII intact. Rest of the physical exam is non contributory - Assessment and Plan (1) Ovmcl-re-szwalmu kidney injury Current Visit: Yes Status: Acute Assessment and Plan: Plan: - To continue gentle hydration with 0.45%NS @75mls/hr - Avoid nephrotoxic medications - Uric acid and CPK in the am - Outpatient nephrology follow up. (2) COPD (chronic obstructive pulmonary disease) Current Visit: Yes Status: Chronic Assessment and Plan: Mild scatters expiratory wheezing Plan: - Patient on Albuterol nebs. - No need for escalation of therapy at this time. (3) Uncontrolled diabetes mellitus type 2 without complications Current Visit: Yes Status: Acute Assessment and Plan: Plan: -I personally educated the patient regarding the proper insulin use. - Diabetic education ordered - Levermir increased to 30 units BID. - Continue Lispro 18 units AC and High dose sliding scale - Carb controlled diet to <2000 calories a day. (4) Hypothyroid Current Visit: Yes Status: Chronic Assessment and Plan: Plan: - Continue levothyroxine 200 mcg daily (5) History of hypertension Current Visit: Yes Status: Chronic Assessment and Plan: BP well controlled. Plan: - Continue current antihypertensive medications (6) History of congestive heart failure Current Visit: Yes Status: Chronic Assessment and Plan: No signs of volume overload. No rales or crackles on auscultation, no lower extremities edema or respiratory distress. Plan: - Continue low dose metoprolol - Lisinopril and Furosemide have been held due to TAMARA. (7) Chronic respiratory failure Current Visit: No Status: Chronic Assessment and Plan: On three and 1/2 litters of O2 at home. Plan: - Continue O2 by nasal cannula. - Titrate for O2 saturation >92% (8) Dyslipidemia Current Visit: No Status: Chronic Assessment and Plan: Plan: - To On atorvastatin (9) Anemia Current Visit: Yes Status: Acute Assessment and Plan: Possible secondary to anemia of chronic disease. Plan: - CBC am - Iron panel. DVT Prophylaxis: On heparin 5000 units SuB Q12HR for DVT prophylaxis. - Summary of Assessment and Plan Summary of Assessment and Plan: Patient is a potential discharge tomorrow. Needs to remain in the hospital for IV fluids and tighter glycemic control - Time Spent with Patient Total time spent is greater than 50% in coordination of care (as documented) at patient's floor/unit and/or counseling patient: 25 - 35 minutes Plan of Care Discussed with: patient (and the nurse.) Internal Medicine: Result - Labs CBC & Chem 7: 04/03/18 03:07 04/03/18 03:07 Labs: Short CBC 04/03/18 Range/Units 03:07 WBC 7.1 (4.3-11.1) K/mcL Hgb 9.6 L (11.5-15.4) g/dL Hct 31.5 L (35.3-44.9) % Plt Count 140 (140-400) K/mcL Neutrophils # 3.4 (1.6-8.9) K/mcL BMP 04/03/18 03:07 Sodium 138 Potassium 4.6 Chloride 99 Carbon Dioxide 32 H BUN 38 H Creatinine 2.01 H Glucose 270 H Calcium 8.7 Consult Discharge Plan - Plan Referrals: Doris Finney [Other] - 04/06/18 (this RIGGER UP comes to the patients house to see them. The office will call the morning of the appointment to schedule a time) NONE,PCP [Primary Care Provider] - (1) Lycag-ab-ckpdhwc kidney injury Qualifiers: Acute renal failure type: unspecified Chronic kidney disease stage: stage 3 ( moderate) Qualified Code(s): N17.9 - Acute kidney failure, unspecified; N18.3 - Chronic kidney disease, stage 3 (moderate) (2) COPD (chronic obstructive pulmonary disease) Qualifiers: COPD type: unspecified COPD Qualified Code(s): J44.9 - Chronic obstructive pulmonary disease, unspecified (4) Hypothyroid Qualifiers: Hypothyroidism type: other Qualified Code(s): E03.8 - Other specified hypothyroidism (7) Chronic respiratory failure Qualifiers: Respiratory failure complication: hypoxia and hypercapnia Qualified Code(s): J96.11 - Chronic respiratory failure with hypoxia; J96.12 - Chronic respiratory failure with hypercapnia (9) Anemia Qualifiers: Anemia type: unspecified type Qualified Code(s): D64.9 - Anemia, unspecified
[2018-04-03] MEDS: Nystatin POWDER 30 GM BOTTLE TP SCH ×3 (12:46→21:25)
--- NOTE | 2018-04-03 15:43 | Electrocardiograph Report ---
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
[2018-04-03] MEDS ORDERED: DiphenhydraMINE CREAM 28.4 GM TUBE TP PRN (20:02)
[2018-04-03] MEDS: traZODone 50 MG TABLET PO SCH (21:23)
[2018-04-04] MEDS: *HR* Heparin 5,000 UNIT/ML VIAL SQ SCH ×3 (06:05→21:27)
[2018-04-04 06:47] LABS: Basophils % 0.5 %; Eosinophils # 0.3 K/mcL (0.0-0.6); Hematocrit 32.1 % (35.3-44.9); Hemoglobin 9.8 g/dL (11.5-15.4); Immature Granulocytes % 0.2 % (0-4); Lymphocytes # 2.5 K/mcL (0.6-4.6); Lymphocytes % 39.1 %; Mean Corpuscular HGB Conc 30.5 g/dL (31.6-35.5); Mean Corpuscular Hemoglobin 29.3 pg (28.0-33.3); Mean Corpuscular Volume 95.8 fL (83.0-100.0); Mean Platelet Volume 11.3 fL (9.4-12.4); Monocytes # 0.4 K/mcL (0.0-1.3); Monocytes % 6.6 %; Neutrophils # 3.2 K/mcL (1.6-8.9); Platelet Count 125 K/mcL (140-400); Red Blood Count 3.35 M/mcL (3.82-4.97); Red Cell Distribution Width 15.7 % (11.5-14.5); Segmented Neutrophils % 49.6 %
[2018-04-04 07:09] LABS: Calcium 8.8 mg/dL (8.6-10.3); Magnesium 1.5 mg/dL (1.6-2.6); Potassium 4.8 mEq/L (3.5-5.1)
[2018-04-04 07:10] LABS: Uric Acid 9.9 mg/dL (2.3-7.6)
[2018-04-04] MEDS: Gabapentin 300 MG CAPSULE PO SCH ×2 (07:45→21:28)
[2018-04-04] MEDS: Sucralfate 1 GM TABLET PO SCH ×4 (07:46→21:29)
[2018-04-04] MEDS: Aspirin 81 MG TAB.CHEW PO SCH (07:46)
[2018-04-04] MEDS: Loratadine 10 MG TABLET PO SCH (07:46)
[2018-04-04] MEDS: Insulin LISPRO 300 UNITS/3 ML VIAL SQ SCH ×7 (07:46→21:31)
[2018-04-04] MEDS: Insulin DETEMIR 100 UNIT/ML X5UNITS SQ SCH (07:47)
[2018-04-04] MEDS: Nystatin POWDER 30 GM BOTTLE TP SCH ×3 (07:48→23:28)
[2018-04-04] MEDS ORDERED: Insulin LISPRO 300 UNITS/3 ML VIAL SQ SCH (07:53)
[2018-04-04] MEDS ORDERED: Insulin DETEMIR 100 UNIT/ML X5UNITS SQ SCH ×3 (08:00→10:21)
--- NOTE | 2018-04-04 10:24 | Internal Med Progress Note ---
Hospitalist Progress Note - Encounter Date of Encounter: 04/04/18 Time of Encounter: 10:23 - Subjective Interval History: Evaluated at bedside, patient does not voice any complains, reports doing well, denies chest pain, nausea, vomiting. Denies shortness of breath. No event overnight. - Exam Vitals: Temp Pulse Resp BP Pulse Ox 97.7 F 58 18 119/44 94 04/04/18 07:07 04/04/18 07:07 04/04/18 07:07 04/04/18 07:07 04/04/18 07:07 Exam: General: Alert and orientedx3. no acute distress. Morbidly obese Cardiovascular: Regular, rhythm, rate, Normal S1 & S2, no rubs, murmurs or gallops. Lungs: Clear to auscultation bilaterally, no wheezing, rales or crackles. Abdomen: Obese, Soft, non-tender, no rigidity. NABS in all 4 quadrants Extremities: Chronic venous stasis in the left lower extremity, no edema or tenderness, no joint swelling. Neurological: Normal cognition. CN II-XII intact. Rest of the physical exam is non contributory - Assessment and Plan (1) Uncontrolled diabetes mellitus type 2 without complications Current Visit: Yes Status: Acute Assessment and Plan: Blood sugar sub-optimally controlled. Plan: - Increase levemir to 60 units SubQ/BID - Increase lispro to 25 units AC - Continue High dose sliding scale AC. - Diabetic diet. - Possible discharge tomorrow morning (2) Tpdfv-co-nclbjkh kidney injury Current Visit: Yes Status: Acute Assessment and Plan: Kidney function is back to baseline. Plan: - Discontinue IV fluids - Started on Furosemide 20mg/IV BID - Avoid nephrotoxic medications - Strict intake and input (3) COPD (chronic obstructive pulmonary disease) Current Visit: Yes Status: Chronic Assessment and Plan: Clear to auscultation b/l. Plan: - Continue Nebs PRN (4) Hypothyroid Current Visit: Yes Status: Chronic Assessment and Plan: Plan: - Continue Levfothyroxine 200mcg daily (5) History of hypertension Current Visit: Yes Status: Chronic Assessment and Plan: BP well controlled: Plan - Continue metoprolol 25mg PO BID - Started on low dose furosemide 20mg/IV BID (6) History of congestive heart failure Current Visit: Yes Status: Chronic Assessment and Plan: No on exacerbation. Plan: - Continue with the Beta Juliocesar - On a low dose furosemide - daily weights - strict intake and output - No on an Aces inhibitor due to TAMARA/CKD (7) Chronic respiratory failure Current Visit: No Status: Chronic Assessment and Plan: On 3 1/2 litters of O2. Plan; - Continue O2 by nasal cannula, titrate for an O2sat of >92% (8) Dyslipidemia Current Visit: No Status: Chronic Assessment and Plan: On lipid lowering medications. (9) Anemia Current Visit: Yes Status: Acute Assessment and Plan: Possible due to anemia of chronic disease in the setting of CKD Plan: - Continue to monitor CBC - No intervention needed at this time DVT Prophylaxis: Chemical DVT prophylaxis with Heparin 5000 units SubQ Q12HRs - Summary of Assessment and Plan Summary of Assessment and Plan: Disposition: - Needs to remain in the hospital for 24 more hours for better glycemic control - Possible discharge tomorrow - Time Spent with Patient Total time spent is greater than 50% in coordination of care (as documented) at patient's floor/unit and/or counseling patient: Greater than 35 minutes Plan of Care Discussed with: patient (and the nurse) Internal Medicine: Result - Labs CBC & Chem 7: 04/04/18 06:04 04/04/18 06:04 Labs: Short CBC 04/04/18 Range/Units 06:04 WBC 6.5 (4.3-11.1) K/mcL Hgb 9.8 L (11.5-15.4) g/dL Hct 32.1 L (35.3-44.9) % Plt Count 125 L (140-400) K/mcL Neutrophils # 3.2 (1.6-8.9) K/mcL BMP 04/04/18 06:04 Sodium 137 Potassium 4.8 Chloride 99 Carbon Dioxide 33 H BUN 40 H Creatinine 2.07 H Glucose 279 H Calcium 8.8 Consult Discharge Plan - Plan Referrals: Doris Finney [Other] - 04/06/18 (this VISUAL PRESENTATION MANAGER comes to the patients house to see them. The office will call the morning of the appointment to schedule a time) NONE,PCP [Primary Care Provider] - (2) Ztuyy-xt-nqhucus kidney injury Qualifiers: Acute renal failure type: unspecified Chronic kidney disease stage: stage 3 ( moderate) Qualified Code(s): N17.9 - Acute kidney failure, unspecified; N18.3 - Chronic kidney disease, stage 3 (moderate) (3) COPD (chronic obstructive pulmonary disease) Qualifiers: COPD type: unspecified COPD Qualified Code(s): J44.9 - Chronic obstructive pulmonary disease, unspecified (4) Hypothyroid Qualifiers: Hypothyroidism type: other Qualified Code(s): E03.8 - Other specified hypothyroidism (7) Chronic respiratory failure Qualifiers: Respiratory failure complication: hypoxia and hypercapnia Qualified Code(s): J96.11 - Chronic respiratory failure with hypoxia; J96.12 - Chronic respiratory failure with hypercapnia (9) Anemia Qualifiers: Anemia type: unspecified type Qualified Code(s): D64.9 - Anemia, unspecified
[2018-04-04] MEDS: Magnesium Oxide 400 MG TABLET PO SCH ×2 (13:20→21:29)
[2018-04-04] MEDS: Furosemide 20 MG/2 ML VIAL IVP SCH (21:28)
[2018-04-04] MEDS: traZODone 50 MG TABLET PO SCH (21:29)
[2018-04-05] MEDS: *HR* Heparin 5,000 UNIT/ML VIAL SQ SCH (05:15)
[2018-04-05 07:05] LABS: Calcium 9.1 mg/dL (8.6-10.3); Potassium 4.6 mEq/L (3.5-5.1)
[2018-04-05 07:38] VITALS: BP 137/62
[2018-04-05] MEDS: Insulin LISPRO 300 UNITS/3 ML VIAL SQ SCH ×2 (07:51→12:10)
[2018-04-05] MEDS: Furosemide 20 MG/2 ML VIAL IVP SCH (07:53)
[2018-04-05] MEDS: Nystatin POWDER 30 GM BOTTLE TP SCH (07:53)
[2018-04-05] MEDS: Sucralfate 1 GM TABLET PO SCH ×2 (07:56→12:10)
[2018-04-05] MEDS: Gabapentin 300 MG CAPSULE PO SCH (07:56)
[2018-04-05] MEDS: Magnesium Oxide 400 MG TABLET PO SCH (07:56)
[2018-04-05] MEDS: Loratadine 10 MG TABLET PO SCH (07:57)
[2018-04-05] MEDS: Aspirin 81 MG TAB.CHEW PO SCH (07:57)
[2018-04-05] MEDS ORDERED: Furosemide 20 MG/2 ML VIAL IVP SCH (08:00)
[2018-04-05] MEDS ORDERED: Insulin LISPRO 300 UNITS/3 ML VIAL SQ SCH ×2 (08:00→12:00)
[2018-04-05] MEDS ORDERED: Insulin DETEMIR 100 UNIT/ML X5UNITS SQ SCH ×2 (09:00→21:00)
--- NOTE | 2018-04-05 10:49 | Discharge Summary ---
- NOTES TO OUTPATIENT PROVIDER Notes to Outpatient Provider: Follwo up with Primary care Physician for Diabetes moniting. Recommended to be evaluated by an senior landscape architect for diabtes control. Date of Encounter: 04/05/18 Time of Encounter: 10:42 - Discharge Diagnosis (1) Uncontrolled diabetes mellitus type 2 without complications Priority: Primary Status: Chronic (2) Ydtuw-ki-kurrekt kidney injury Priority: Secondary Status: Resolved Qualifiers: Acute renal failure type: unspecified Chronic kidney disease stage: stage 3 (moderate) Qualified Code(s): N17.9 - Acute kidney failure, unspecified; N18.3 - Chronic kidney disease, stage 3 (moderate) (3) COPD (chronic obstructive pulmonary disease) Priority: Secondary Status: Chronic Qualifiers: COPD type: unspecified COPD Qualified Code(s): J44.9 - Chronic obstructive pulmonary disease, unspecified (4) Hypothyroid Priority: Secondary Status: Chronic Qualifiers: Hypothyroidism type: other Qualified Code(s): E03.8 - Other specified hypothyroidism (5) History of hypertension Priority: Secondary Status: Chronic (6) History of congestive heart failure Priority: Secondary Status: Chronic (7) Chronic respiratory failure Priority: Secondary Status: Chronic Qualifiers: Respiratory failure complication: hypoxia and hypercapnia Qualified Code(s) : J96.11 - Chronic respiratory failure with hypoxia; J96.12 - Chronic respiratory failure with hypercapnia (8) Dyslipidemia Priority: Secondary Status: Chronic (9) Anemia Priority: Secondary Status: Chronic Qualifiers: Anemia type: unspecified type Qualified Code(s): D64.9 - Anemia, unspecified Hospital course: Ms. Smart is a 67 year old female past medical history of arthritis, COPD, diabetes, GERD, hyperlipidemia, hypertension, osteoporosis, renal disease, thyroid disease. . Who presented to the hospital due to elevated blood sugar and TAMARA. Patient manage with insulin, and IV fluid. Her insulin overage was adjusted to Levemir 100 units twice a day, lispro sliding scale high-dose, and lispro 10 units before meals. Patient continues to require high dose of insulin , and blood sugar ranging from 200-300. No acute complications of hyperglycemia. Hemodynamically stable, to be discharged home and follow-up with her primary care for tight blood glucose control. - Time Spent with Patient Total time spent providing and/or coordinating discharge services: - Discharge Medications Prescriptions: Insulin DETEMIR [Levemir] 100 unit SQ BID #10 mls Home Medications: Allopurinol [Zyloprim 100 MG] 100 mg PO DAILY 09/27/15 [History] Buspirone HCl [Buspar] 15 mg PO BID 09/27/15 [History] Cholecalciferol (Vitamin D3) [Vitamin D3] 2,000 unit PO DAILY 09/27/15 [History] Furosemide [Lasix] 40 mg PO DAILY 09/27/15 [History] Gabapentin [Neurontin] 600 mg PO BID 09/27/15 [History] Insulin ASPART [Novolog] 22 - 28 unit SQ TIDWM 09/27/15 [History] Lisinopril [Zestril] 40 mg PO DAILY 09/27/15 [History] Metoprolol [Lopressor] 25 mg PO BID 09/27/15 [History] Multivitamin [Multi-Day Vitamins] 1 tab PO DAILY 09/27/15 [History] Omeprazole [PriLOSEC] 20 mg PO DAILY 09/27/15 [History] Potassium Chloride [Klor-Con Sprinkle] 8 meq PO DAILY 09/27/15 [History] Trazodone HCl [TraZODone] 100 mg PO HS 09/27/15 [History] Vitamin B Complex [B Complex] 1 tab PO DAILY 09/27/15 [History] Aspirin 81 mg PO DAILY 04/09/16 [History] DiphenhydraMINE [Benadryl] 25 mg PO Q6HR PRN 04/09/16 [History] Docusate [Colace] 300 mg PO DAILY 04/09/16 [History] Loratadine [Claritin] 10 mg PO DAILY 04/09/16 [History] Albuterol Neb [Proventil Neb] 2.5 mg IH Q4H PRN #1 inhsol 04/11/16 [Rx] Nystatin POWDER [Nystop] 1 appl TP BID #3 bottle 04/11/16 [Rx] Atorvastatin Calcium [Lipitor] 80 mg PO HS 02/01/18 [History] Levothyroxine Sodium [Synthroid] 200 mcg PO DAILY 02/01/18 [History] raNITIdine HCl [Zantac] 150 mg PO BID 02/01/18 [History] GuaiFENesin ER [Mucinex] 1,200 mg PO BID 7 Days #14 tbbp.12hr 02/05/18 [Rx] Sucralfate [Carafate] 1 gm PO QIDAC 7 Days #28 tablet 02/05/18 [Rx] Insulin DETEMIR [Levemir] 100 unit SQ BID #10 mls 04/05/18 [Rx] Allergies/Adverse Reactions: 3 Allergy/AdvReac Type Severity Reaction Status Date / Time adhesive tape Allergy Rash Verified 04/01/18 16:17 codeine Allergy Hives Verified 04/01/18 16:17 Penicillins Allergy Rash Verified 04/01/18 16:17 Sulfa (Sulfonamide Allergy Rash Verified 04/01/18 16:17 Antibiotics) Date of admission: 04/03/18 14:07 Primary care physician: PCP NONE - Constitutional Vitals: Temp Pulse Resp BP Pulse Ox 98 F 63 17 137/62 93 04/05/18 07:34 04/05/18 07:34 04/05/18 07:34 04/05/18 07:34 04/05/18 07:34 General appearance: Present: cooperative, A&O X 3, pleasant, no acute distress Exam: General: Alert and orientedx3. no acute distress. Morbidly obese Cardiovascular: Regular, rhythm, rate, Normal S1 & S2, no rubs, murmurs or gallops. Lungs: Clear to auscultation bilaterally, no wheezing, rales or crackles. Abdomen: Obese, Soft, non-tender, no rigidity. NABS in all 4 quadrants Extremities: Chronic venous stasis in the left lower extremity, no edema or tenderness, no joint swelling. Neurological: Normal cognition. CN II-XII intact. Rest of the physical exam is non contributory - Patient Status Disposition: Home Health Service Condition: Good Functional capacity at discharge: bed bound Overall status at discharge: patient is back to baseline - Discharge Instructions Follow Up With: Doris Finney [Other] - 04/12/18 (this COLOR SPECIALIST comes to the patients house to see them. The office will call the morning of the appointment to schedule a time) - Diet and Activity Activity: as per physical therapy Diet: diabetic diet
--- NOTE | 2018-04-05 10:59 | Physician Discharge Referral ---
Home Health/Hosp Referral Info Transfer to: Home Health - Diagnosis (1) Uncontrolled diabetes mellitus type 2 without complications Priority: Primary Status: Chronic (2) Xojhg-cv-jsofacm kidney injury Priority: Secondary Status: Resolved (3) COPD (chronic obstructive pulmonary disease) Priority: Secondary Status: Chronic (4) Hypothyroid Priority: Secondary Status: Chronic (5) History of hypertension Priority: Secondary Status: Chronic (6) History of congestive heart failure Priority: Secondary Status: Chronic (7) Chronic respiratory failure Priority: Secondary Status: Chronic (8) Dyslipidemia Priority: Secondary Status: Chronic (9) Anemia Priority: Secondary Status: Chronic - Respiratory Orders Oxygen / L per min Smoking Cessation: Smoking cessation has been advised. For more information, call the [place] [employer] Quit Line at 7-735-TQIX-NOW. - Diet/Nutrition Diet/Nutrition Orders: Regular - Activity Activity Orders: Ambulate - Services Needed Following services are medically necessary services: Home Health Aide, Physical Therapy, Occupational Therapy - Transfer Medications Prescriptions: Insulin DETEMIR [Levemir] 100 unit SQ BID #10 mls Home Medications: Allopurinol [Zyloprim 100 MG] 100 mg PO DAILY 09/27/15 [History] Buspirone HCl [Buspar] 15 mg PO BID 09/27/15 [History] Cholecalciferol (Vitamin D3) [Vitamin D3] 2,000 unit PO DAILY 09/27/15 [History] Furosemide [Lasix] 40 mg PO DAILY 09/27/15 [History] Gabapentin [Neurontin] 600 mg PO BID 09/27/15 [History] Insulin ASPART [Novolog] 22 - 28 unit SQ TIDWM 09/27/15 [History] Lisinopril [Zestril] 40 mg PO DAILY 09/27/15 [History] Metoprolol [Lopressor] 25 mg PO BID 09/27/15 [History] Multivitamin [Multi-Day Vitamins] 1 tab PO DAILY 09/27/15 [History] Omeprazole [PriLOSEC] 20 mg PO DAILY 09/27/15 [History] Potassium Chloride [Klor-Con Sprinkle] 8 meq PO DAILY 09/27/15 [History] Trazodone HCl [TraZODone] 100 mg PO HS 09/27/15 [History] Vitamin B Complex [B Complex] 1 tab PO DAILY 09/27/15 [History] Aspirin 81 mg PO DAILY 04/09/16 [History] DiphenhydraMINE [Benadryl] 25 mg PO Q6HR PRN 04/09/16 [History] Docusate [Colace] 300 mg PO DAILY 04/09/16 [History] Loratadine [Claritin] 10 mg PO DAILY 04/09/16 [History] Albuterol Neb [Proventil Neb] 2.5 mg IH Q4H PRN #1 inhsol 04/11/16 [Rx] Nystatin POWDER [Nystop] 1 appl TP BID #3 bottle 04/11/16 [Rx] Atorvastatin Calcium [Lipitor] 80 mg PO HS 02/01/18 [History] Levothyroxine Sodium [Synthroid] 200 mcg PO DAILY 02/01/18 [History] raNITIdine HCl [Zantac] 150 mg PO BID 02/01/18 [History] GuaiFENesin ER [Mucinex] 1,200 mg PO BID 7 Days #14 tbbp.12hr 02/05/18 [Rx] Sucralfate [Carafate] 1 gm PO QIDAC 7 Days #28 tablet 02/05/18 [Rx] Insulin DETEMIR [Levemir] 100 unit SQ BID #10 mls 04/05/18 [Rx] Allergies/Adverse Reactions: 3 Allergy/AdvReac Type Severity Reaction Status Date / Time adhesive tape Allergy Rash Verified 04/01/18 16:17 codeine Allergy Hives Verified 04/01/18 16:17 Penicillins Allergy Rash Verified 04/01/18 16:17 Sulfa (Sulfonamide Allergy Rash Verified 04/01/18 16:17 Antibiotics) Certification: Further, I certify that my clinical findings support that this patient is homebound (i.e. absences from home require considerable and taxing effort and are for medical reasons or shinto services or infrequently or short duration when for other reasons) because: Homebound Reason: Patient requires assistance of a person or device to safely leave home Attestation: My signature below is to certify that this patient is under my care and that I, or nurse practitioner, or a physician's high school assistant principal working with me, has a face-to -face encounter with this patient.
== END 2018-04-05 12:59 | disposition home health service (06) | DRG 683 ==
LOC: 2NNU 16:06 → EMEROOARM 16:06 → SUATTDRO 04-02 00:13 → 2NNU 04-02 00:47
PROVIDERS: ADMIT Pediatrics; ATTEND Internal Medicine

== ENCOUNTER 2018-11-13 04:05 | Inpatient (IN) ==
[2018-11-13] MEDS ORDERED: 0.9 % Sodium Chloride 1,000 ML IVC ONE ×2 (04:28→05:42)
[2018-11-13 05:07] LABS: Basophils # 0.1 K/mcL (0.0-0.2); Basophils % 0.3 %; Eosinophils # 0.1 K/mcL (0.0-0.6); Eosinophils % 0.7 %; Hematocrit 34.9 % (35.3-44.9); Hemoglobin 10.8 g/dL (11.5-15.4); Immature Granulocytes % 0.4 % (0-4); Lymphocytes % 6.1 %; Mean Corpuscular HGB Conc 30.9 g/dL (31.6-35.5); Mean Corpuscular Hemoglobin 28.6 pg (28.0-33.3); Mean Corpuscular Volume 92.6 fL (83.0-100.0); Mean Platelet Volume 9.3 fL (9.4-12.4); Monocytes # 0.6 K/mcL (0.0-1.3); Monocytes % 3.4 %; Neutrophils # 14.5 K/mcL (1.6-8.9); Platelet Count 158 K/mcL (140-400); Red Blood Count 3.77 M/mcL (3.82-4.97); Red Cell Distribution Width 14.4 % (11.5-14.5); Segmented Neutrophils % 89.1 %
[2018-11-13 05:17] LABS: Prothrombin Time 11.1 Seconds (9.4-12.1)
[2018-11-13 05:20] LABS: Activated Partial Thrombo Time 30.3 Seconds (26.0-36.0)
[2018-11-13 05:33] LABS: Albumin 3.4 g/dL (3.5-5.7); Bilirubin,Direct 0.1 mg/dL (0.0-0.2); Bilirubin,Indirect 0.4 mg/dL (0.0-1.2); Bilirubin,Total 0.5 mg/dL (0.3-1.0); Calcium 9.2 mg/dL (8.6-10.3); Globulin 3.4 g/dL (2.4-3.5); Potassium 3.6 mEq/L (3.5-5.1); Total Protein 6.8 g/dL (6.4-8.9); Troponin I 0.15 ng/mL (< 0.04)
--- NOTE | 2018-11-13 05:39 | Emergency Department Note ---
Disposition Clinical Impression: Diabetes mellitus type 2 in obese, Morbid obesity with BMI of 60.0-69.9, adult, Demand ischemia of myocardium Urinary tract infection Qualifiers: Urinary tract infection type: acute cystitis Hematuria presence: with hematuria Qualified Code(s): N30.01 - Acute cystitis with hematuria Disposition: Admitted As Inpatient Condition: Fair General Adult HPI - General Chief complaint: ED Abdominal Pain Stated complaint: flu like symptoms Time Seen by Provider: 11/13/18 04:28 Source: patient, family, EMS Mode of arrival: private vehicle Limitations: no limitations Nursing Notes Reviewed: Yes Vital Signs Reviewed: Yes - History of Present Illness HPI Narrative: 68-year-old female with a significant medical history that includes diabetes, CHF, see daily, COPD, hypertension, dyslipidemia presents emergency department for flulike symptoms that started suddenly today. Patient states she woke up feeling just ill, she has had approximately 3-5 episodes of vomiting, generalized malaise, alternating from feeling hot feeling cold. She did not check her temperature at home. Patient does wear oxygen at home at 3.5 L at all times. Patient states she is incontinent of urine, this has change in his smells very strong. She states her bowel movements are normal for her around every other day and they are formed and hard, this is normal for her. Patient denies rhinorrhea, congestion, recent illness, shortness of breath, coughing, chest pain, palpitations, nausea, diarrhea. Patient does state she has some vague left mid abdominal pain that is crampy. Patient states she does have chronic wounds to her bilateral pulse ox, she denies them being infected. Onset (ago): hour(s) Location: abdomen Radiation: non-radiation Pain Severity: moderate Pain Scale: 6 Quality: aching Consistency: constant Improves with: nothing Worsens with: nothing Associated symptoms: Reports: fever/chills, nausea/vomiting. Denies: confusion, chest pain, cough, diaphoresis, headaches, loss of appetite, malaise, rash, seizure, shortness of breath, syncope, weakness Treatments Prior to Arrival: none - Related Data Home Medications Medication Instructions Recorded Confirmed Allopurinol [Zyloprim 100 MG] 100 mg PO DAILY 09/27/15 11/13/18 Buspirone HCl [Buspar] 15 mg PO BID 09/27/15 11/13/18 Cholecalciferol (Vitamin D3) 2,000 unit PO DAILY 09/27/15 11/13/18 [Vitamin D3] Gabapentin [Neurontin] 600 mg PO BID 09/27/15 11/13/18 Insulin ASPART [Novolog] 0 unit SQ TIDWM 09/27/15 11/13/18 Metoprolol [Lopressor] 25 mg PO BID 09/27/15 11/13/18 Omeprazole [PriLOSEC] 20 mg PO DAILY 09/27/15 11/13/18 Potassium Chloride [Klor-Con 8 meq PO DAILY 09/27/15 11/13/18 Sprinkle] Vitamin B Complex [B Complex] 1 tab PO DAILY 09/27/15 11/13/18 Aspirin 81 mg PO DAILY 04/09/16 11/13/18 DiphenhydraMINE [Benadryl] 25 mg PO Q6HR PRN 04/09/16 11/13/18 Docusate [Colace] 300 mg PO DAILY 04/09/16 11/13/18 Loratadine [Claritin] 10 mg PO DAILY 04/09/16 11/13/18 Atorvastatin Calcium [Lipitor] 80 mg PO HS 02/01/18 11/13/18 Levothyroxine Sodium [Synthroid] 200 mcg PO DAILY 02/01/18 11/13/18 raNITIdine HCl [Zantac] 150 mg PO BID PRN 02/01/18 11/13/18 Escitalopram [Lexapro] 20 mg PO DAILY 11/13/18 11/13/18 Lisinopril [Zestril] 40 mg PO DAILY 11/13/18 11/13/18 Multivitamin [Daily Multiple 1 each PO DAILY 11/13/18 11/13/18 Vitamin] Trazodone HCl 100 mg PO HS 11/13/18 11/13/18 Previous Rx's Medication Instructions Recorded Albuterol Neb [Proventil Neb] 2.5 mg IH Q4H PRN #1 inhsol 04/11/16 Nystatin POWDER [Nystop] 1 appl TP BID #3 bottle 04/11/16 Insulin DETEMIR [Levemir] 100 unit SQ BID #10 mls 04/05/18 Furosemide [Lasix] 40 mg PO BID #40 07/08/18 Allergies Allergy/AdvReac Type Severity Reaction Status Date / Time adhesive tape Allergy Rash Verified 11/13/18 04:20 codeine Allergy Hives Verified 11/13/18 04:20 hydromorphone [From Dilaudid] Allergy Itching Verified 11/13/18 12:29 Penicillins Allergy Rash Verified 11/13/18 04:20 Sulfa (Sulfonamide Allergy Rash Verified 11/13/18 04:20 Antibiotics) All systems ED: reviewed and negative except as stated. Review of Systems: As Per HPI Constitutional: Denies: fever, chills ENT ED: Denies: throat pain Cardiovascular: Denies: chest pain, palpitations Respiratory: Denies: cough, dyspnea, wheezes, hemoptysis Gastrointestinal: Reports: abdominal pain, nausea, vomiting. Denies: diarrhea, constipation, hematemesis, melena, hematochezia Genitourinary: Reports: other (Incontinent, foul-smelling urine) Musculoskeletal: Denies: back pain Integumentary: Reports: other Neurological: Denies: headache, weakness, numbness, paresthesias, confusion, abnormal gait, vertigo Endocrine: Reports: fatigue Past Medical History - Past Medical History Attestation: Yes The following information was validated with the patient. Source: patient, old records reviewed Medical history: Reports: arthritis, COPD, diabetes, GERD, hyperlipidemia, hypertension, osteoporosis, renal disease, thyroid disease, other Surgical history: Reports: cholecystectomy Psychiatric history: Reports: anxiety, depression [employer]PER[employer]OR TELEPH[employer] INFORMATION history: Reports: non-contributory - Social History Smoking Status: Never smoker Smokeless Tobacco Status: No Alcohol use: Reports: none Drug use: Reports: none Physical Exam - General Limitations: no limitations General appearance: alert, in no apparent distress - Head Head exam: atraumatic, normocephalic, normal inspection - Eye Eye exam: Present: normal appearance - ENT ENT exam: mucous membranes dry - Neck Neck exam: Present: normal inspection, full ROM, trachea midline - Chest Chest inspection: Present: normal inspection, symmetric chest wall rise - Respiratory Respiratory exam: Present: normal lung sounds bilaterally - Cardiovascular Cardiovascular exam: Present: regular rate, normal rhythm, normal heart sounds - Abdominal Exam Abdominal exam: Present: soft, tenderness, normal bowel sounds. Absent: distention, guarding, rebound, organomegaly Abdominal tenderness: Present: LUQ, LLQ - Extremities Exam Extremities exam: Present: normal inspection, full ROM. Absent: tenderness, pedal edema - Neurological Exam Neurological exam: Present: alert, oriented X3 - Psychiatric Psychiatric exam: Present: normal affect, normal mood - Skin Skin exam: Present: warm, dry, intact, normal color Course Course Narrative: Morbidly obese female moderate amount distress. Patient appears dry, her lips are chapped. She comes emergency Department with an elevated temperature of 101, she is hypertensive. She is requiring 5 L of oxygen to maintain saturation. Patient lungs are clear, heart rate regular rhythm, with normal bowel sounds, there is tenderness in the left mid quadrant area. Otherwise, physical examination is benign. I was unable to view the wounds on the pulse ox due to patient's size and on the cot during initial assessment. EKG reveals SR with no ischemic morphology Concern for sepsis currently of unknown etiology viral versus bacterial versus urinary versus abdominal. We will get sepsis labs, chest x-ray, CT the abdomen and pelvis, influenza swab and we will obtain wound cultures once I am able to visualize the wounds. - Reevaluation(s) Reevaluation #1: FI by CT the patient is over the weight requirement for our table for the CT scanner. She would require transfer for any type of CT scanning. I did go and discuss this with patient, she states that she does not want to transfer, she would rather wait and see the results of her urine and other testing as she does not feel that this is abdominal in nature as she was not vomiting until she felt sick, she has not had any issues and her GI system, she does have urinary complaints. We did discuss risks and benefits of transferring versus staying here and waiting. Patient states at this time she does understand and if she needs to transfer she will but is difficult for her family to travel and she "is not going anywhere unless I have to". CT scan will be canceled at this time. Time: 04:45 Reevaluation #2: Assessment resting quietly. She is now on her home oxygen at 3 L, percent oxygenation. Labs returned revealing elevated white count 16.3, stable BMP and rest of CBC. Troponin slightly elevated 0.15, UA positive nitrites, blood, lactic acid 1.9. There is no evidence of severe sepsis, or septic shock, she is positive SIRS but not active signs of sepsis.. Repeat EKG without any evidence of ischemic morphology. It revealed a sinus rhythm with a rate of 94 beats per minutes. No change from previous that was completed upon arrival. This is most likely demand ischemia as patient does have a chronic history of demand ischemia causing an elevated troponin. We will initiate ceftriaxone for the UTI as previous cultures showing Escherichia coli. Patient does appear to feel better, she states after the fluid she was feeling a little better. I did patient would benefit from admission to the hospital for her urinary tract infection. I do not see any surgical signs or peritoneal signs in the abdomen, we did again discuss should the need for a CT, patient would at that point a to be transferred. She is agreeable to plan of care. She sutured rather be here to receive antibiotics and monitoring for the UTI. Otherwise, patient is at baseline. I did call and speak with Dr. Art who is agreeable to accept patient. Time: 06:24 Vital Signs Temperature 101.0 F H 11/13/18 04:20 Pulse Rate 93 11/13/18 04:20 Respiratory Rate 22 11/13/18 04:20 Blood Pressure 130/117 11/13/18 04:20 O2 Sat by Pulse Oximetry 95 11/13/18 04:20 Temperature 99.2 F 11/13/18 18:58 Pulse Rate 88 11/13/18 18:58 Respiratory Rate 19 11/13/18 18:58 Blood Pressure 130/48 11/13/18 18:58 O2 Sat by Pulse Oximetry 77 11/13/18 18:58 Oxygen Delivery Oxygen Delivery Nasal Cannula Medical Decision Making - Medical Records Medical records reviewed: Yes I reviewed the patient's medical records. - Lab Data Lab results reviewed: Yes I reviewed the patient's lab results. Result diagrams: 11/13/18 04:55 11/13/18 04:55 Lab Results 11/13/18 11/13/18 11/13/18 Range/Units 04:55 04:55 04:55 WBC 16.3 H (4.3-11.1) K/mcL RBC 3.77 L (3.82-4.97) M/mcL Hgb 10.8 L (11.5-15.4) g/dL Hct 34.9 L (35.3-44.9) % MCV 92.6 (83.0-100.0) fL MCH 28.6 (28.0-33.3) pg MCHC 30.9 L (31.6-35.5) g/dL RDW 14.4 (11.5-14.5) % Plt Count 158 (140-400) K/mcL MPV 9.3 L (9.4-12.4) fL Immature Gran % 0.4 (0-4) % Seg Neutrophils % 89.1 % Lymphocytes % 6.1 % Monocytes % 3.4 % Eosinophils % 0.7 % Basophils % 0.3 % Neutrophils # 14.5 H (1.6-8.9) K/mcL Lymphocytes # 1.0 (0.6-4.6) K/mcL Monocytes # 0.6 (0.0-1.3) K/mcL Eosinophils # 0.1 (0.0-0.6) K/mcL Basophils # 0.1 (0.0-0.2) K/mcL PT 11.1 (9.4-12.1) Seconds INR 1.0 APTT 30.3 (26.0-36.0) Seconds Sodium 139 (136-145) mEq/L Potassium 3.6 (3.5-5.1) mEq/L Chloride 93 L (98-107) mEq/L Carbon Dioxide 38 H (23-29) mEq/L BUN 26 H (8-23) mg/dL Creatinine 1.70 H (0.60-1.20) mg/dL Est GFR ( Amer) 36 L (> 60) Est GFR (Non-Af Amer) 30 L (> 60) BUN/Creatinine Ratio 15 (6-26) Glucose 406 H (70-105) mg/dL Calculated Osmolality 310 H (280-300) Lactic Acid (0.5-2.2) mmol/L Calcium 9.2 (8.6-10.3) mg/dL Phosphorus 2.0 L (2.7-4.5) mg/dL Magnesium 1.0 L (1.6-2.6) mg/dL Total Bilirubin 0.5 (0.3-1.0) mg/dL Direct Bilirubin 0.1 (0.0-0.2) mg/dL Indirect Bilirubin 0.4 (0.0-1.2) mg/dL AST 17 (13-39) Units/L ALT 15 (7-52) Units/L Alkaline Phosphatase 99 (34-104) Units/L Troponin I 0.15 H* (< 0.04) ng/mL Serum Total Protein 6.8 (6.4-8.9) g/dL Albumin 3.4 L (3.5-5.7) g/dL Globulin 3.4 (2.4-3.5) g/dL Albumin/Globulin Ratio 1.0 L (1.1-2.2) Lipase 15 (11-82) Units/L Ur Specimen Adequacy Urine Color (Yellow) Urine Clarity (Clear) Urine pH (5.0-8.0) pH Units Ur Specific [place] (1.010-1.025) Urine Protein (Neg-Trace) mg/dL Urine Glucose (UA) (Normal) mg/dL Urine Ketones (Negative) mg/dL Urine Blood (Negative) Urine Nitrite (Negative) Urine Bilirubin (Negative) Urine Urobilinogen (Normal) mg/dL Ur Leukocyte Esterase (Negative) Urine Microscopic RBC (0-3) per hpf Urine Microscopic WBC (0-3) per hpf Ur Squamous Epith Cells (None-Few) per lpf Urine Bacteria (None-Few) per hpf Hyaline Casts (None-Few) per lpf Urine Mucus (Few) Ur Culture Indicated? (NO) 11/13/18 11/13/18 Range/Units 04:55 05:30 WBC (4.3-11.1) K/mcL RBC (3.82-4.97) M/mcL Hgb (11.5-15.4) g/dL Hct (35.3-44.9) % MCV (83.0-100.0) fL MCH (28.0-33.3) pg MCHC (31.6-35.5) g/dL RDW (11.5-14.5) % Plt Count (140-400) K/mcL MPV (9.4-12.4) fL Immature Gran % (0-4) % Seg Neutrophils % % Lymphocytes % % Monocytes % % Eosinophils % % Basophils % % Neutrophils # (1.6-8.9) K/mcL Lymphocytes # (0.6-4.6) K/mcL Monocytes # (0.0-1.3) K/mcL Eosinophils # (0.0-0.6) K/mcL Basophils # (0.0-0.2) K/mcL PT (9.4-12.1) Seconds INR APTT (26.0-36.0) Seconds Sodium (136-145) mEq/L Potassium (3.5-5.1) mEq/L Chloride (98-107) mEq/L Carbon Dioxide (23-29) mEq/L BUN (8-23) mg/dL Creatinine (0.60-1.20) mg/dL Est GFR ( Amer) (> 60) Est GFR (Non-Af Amer) (> 60) BUN/Creatinine Ratio (6-26) Glucose (70-105) mg/dL Calculated Osmolality (280-300) Lactic Acid 1.9 (0.5-2.2) mmol/L Calcium (8.6-10.3) mg/dL Phosphorus (2.7-4.5) mg/dL Magnesium (1.6-2.6) mg/dL Total Bilirubin (0.3-1.0) mg/dL Direct Bilirubin (0.0-0.2) mg/dL Indirect Bilirubin (0.0-1.2) mg/dL AST (13-39) Units/L ALT (7-52) Units/L Alkaline Phosphatase (34-104) Units/L Troponin I (< 0.04) ng/mL Serum Total Protein (6.4-8.9) g/dL Albumin (3.5-5.7) g/dL Globulin (2.4-3.5) g/dL Albumin/Globulin Ratio (1.1-2.2) Lipase (11-82) Units/L Ur Specimen Adequacy See below A Urine Color Yellow (Yellow) Urine Clarity Cloudy A (Clear) Urine pH 5.5 (5.0-8.0) pH Units Ur Specific [place] 1.010 (1.010-1.025) Urine Protein 30 H (Neg-Trace) mg/dL Urine Glucose (UA) 500 H (Normal) mg/dL Urine Ketones Negative (Negative) mg/dL Urine Blood Large H (Negative) Urine Nitrite Positive A (Negative) Urine Bilirubin Negative (Negative) Urine Urobilinogen Normal (Normal) mg/dL Ur Leukocyte Esterase Small H (Negative) Urine Microscopic RBC 5-15 H (0-3) per hpf Urine Microscopic WBC 3-5 H (0-3) per hpf Ur Squamous Epith Cells Moderate H (None-Few) per lpf Urine Bacteria Many H (None-Few) per hpf Hyaline Casts None Seen (None-Few) per lpf Urine Mucus Few (Few) Ur Culture Indicated? YES A (NO) - EKG Data EKG #1 EKG attestation: Yes I reviewed and interpreted this EKG. EKG shows normal: sinus rhythm EKG #2 EKG attestation: Yes I reviewed and interpreted this EKG. Attestation Statement - Attestation Attestation: I, Eliel Rico DO have provided [id number] time during the care of this patient. Detailed review the presentation, symptoms, medical history were discussed and reviewed with the advanced practice provider Diana Anderson/[employer]. Medical intervention labs and imaging studies were reviewed in detail. See full documentation of physical exam and course of care in the advanced practice provider's note. I agree with the determined course of care, medical intervention and disposition put forth by the advanced practice provider. See be low documentation for changes or alterations in documentation.
[2018-11-13 05:51] LABS: Bilirubin,Urine Negative (Negative); Blood,Urine Large (Negative); Clarity,Urine Cloudy (Clear); Color,Urine Yellow (Yellow); Glucose,Urine (UA) 500 mg/dL (Normal); Ketones,Urine Negative (Negative); Leukocyte Esterase,Urine Small (Negative); Nitrite,Urine Positive (Negative); PH,Urine 5.5 pH Units (5.0-8.0); Protein,Urine 30 mg/dL (Neg-Trace); Urobilinogen,Urine Normal (Normal)
[2018-11-13 05:55] LABS: Squamous Epithelial Cell,Urine Moderate per lpf (None-Few)
[2018-11-13 05:56] LABS: Bacteria,Urine Many per hpf (None-Few); Hyaline Casts,Urine None Seen per lpf (None-Few); Mucus,Urine Few (Few)
[2018-11-13] MEDS ORDERED: cefTRIAXone 1,000 MG in 0.9 % Sodium Chloride Mini Bag 100 ML IVPB ONE (05:59)
--- NOTE | 2018-11-13 06:33 | Emergency Department Note ---
Disposition Clinical Impression: Urinary tract infection, Diabetes mellitus type 2 in obese, Morbid obesity with BMI of 60.0-69.9, adult, Demand ischemia of myocardium Disposition: Admitted As Inpatient Condition: Fair Time of Disposition: 06:33 General Adult HPI - General Chief complaint: ED Abdominal Pain Stated complaint: flu like symptoms Time Seen by Provider: 11/13/18 04:28 Source: patient, family, EMS Mode of arrival: private vehicle Limitations: no limitations - History of Present Illness Location: abdomen Pain Scale: 6 Quality: aching Improves with: nothing Worsens with: nothing Associated symptoms: Reports: fever/chills, nausea/vomiting. Denies: confusion, chest pain, cough, diaphoresis, headaches, loss of appetite, malaise, rash, seizure, shortness of breath, syncope, weakness Treatments Prior to Arrival: none - Related Data Home Medications Medication Instructions Recorded Confirmed Allopurinol [Zyloprim 100 MG] 100 mg PO DAILY 09/27/15 07/07/18 Buspirone HCl [Buspar] 15 mg PO BID 09/27/15 07/07/18 Cholecalciferol (Vitamin D3) 2,000 unit PO DAILY 09/27/15 07/07/18 [Vitamin D3] Gabapentin [Neurontin] 600 mg PO BID 09/27/15 07/07/18 Insulin ASPART [Novolog] 0 unit SQ TIDWM 09/27/15 07/07/18 Lisinopril [Zestril] 40 mg PO DAILY 09/27/15 07/07/18 Metoprolol [Lopressor] 25 mg PO BID 09/27/15 07/07/18 Multivitamin [Multi-Day Vitamins] 1 tab PO DAILY 09/27/15 07/07/18 Omeprazole [PriLOSEC] 20 mg PO DAILY 09/27/15 07/07/18 Potassium Chloride [Klor-Con 8 meq PO DAILY 09/27/15 07/07/18 Sprinkle] Trazodone HCl [TraZODone] 100 mg PO HS 09/27/15 07/07/18 Vitamin B Complex [B Complex] 1 tab PO DAILY 09/27/15 07/07/18 Aspirin 81 mg PO DAILY 04/09/16 07/07/18 DiphenhydraMINE [Benadryl] 25 mg PO Q6HR PRN 04/09/16 07/07/18 Docusate [Colace] 300 mg PO DAILY 04/09/16 07/07/18 Loratadine [Claritin] 10 mg PO DAILY 04/09/16 07/07/18 Atorvastatin Calcium [Lipitor] 80 mg PO HS 02/01/18 07/07/18 Levothyroxine Sodium [Synthroid] 200 mcg PO DAILY 02/01/18 07/07/18 raNITIdine HCl [Zantac] 150 mg PO BID PRN 02/01/18 07/07/18 Tramadol HCl [Ultram] 50 mg PO QID PRN 07/07/18 07/07/18 Previous Rx's Medication Instructions Recorded Albuterol Neb [Proventil Neb] 2.5 mg IH Q4H PRN #1 inhsol 04/11/16 Nystatin POWDER [Nystop] 1 appl TP BID #3 bottle 04/11/16 Insulin DETEMIR [Levemir] 100 unit SQ BID #10 mls 04/05/18 Furosemide [Lasix] 40 mg PO BID #40 07/08/18 Allergies Allergy/AdvReac Type Severity Reaction Status Date / Time adhesive tape Allergy Rash Verified 11/13/18 04:20 codeine Allergy Hives Verified 11/13/18 04:20 Penicillins Allergy Rash Verified 11/13/18 04:20 Sulfa (Sulfonamide Allergy Rash Verified 11/13/18 04:20 Antibiotics) Constitutional: Denies: fever, chills ENT ED: Denies: throat pain Cardiovascular: Denies: chest pain, palpitations Respiratory: Denies: cough, dyspnea, wheezes, hemoptysis Gastrointestinal: Reports: abdominal pain, nausea, vomiting. Denies: diarrhea, constipation, hematemesis, melena, hematochezia Genitourinary: Reports: other (Incontinent, foul-smelling urine) Musculoskeletal: Denies: back pain Integumentary: Reports: other Neurological: Denies: headache, weakness, numbness, paresthesias, confusion, abnormal gait, vertigo Endocrine: Reports: fatigue Past Medical History - Past Medical History Medical history: Reports: arthritis, COPD, diabetes, GERD, hyperlipidemia, hypertension, osteoporosis, renal disease, thyroid disease, other Surgical history: Reports: cholecystectomy Psychiatric history: Reports: anxiety, depression 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 - Social History Smoking Status: Never smoker Smokeless Tobacco Status: No Alcohol use: Reports: none Drug use: Reports: none Physical Exam - General Limitations: no limitations General appearance: alert, in no apparent distress Course Vital Signs Temperature 101.0 F H 11/13/18 04:20 Pulse Rate 93 11/13/18 04:20 Respiratory Rate 22 11/13/18 04:20 Blood Pressure 130/117 11/13/18 04:20 O2 Sat by Pulse Oximetry 95 11/13/18 04:20 Temperature 101.0 F H 11/13/18 04:20 Pulse Rate 94 11/13/18 06:22 Respiratory Rate 32 11/13/18 06:22 Blood Pressure 141/115 11/13/18 06:22 O2 Sat by Pulse Oximetry 94 11/13/18 06:22 Oxygen Delivery Oxygen Delivery Room Air Medical Decision Making - Lab Data Result diagrams: 11/13/18 04:55 11/13/18 04:55 Lab Results 11/13/18 11/13/18 11/13/18 Range/Units 04:55 04:55 04:55 WBC 16.3 H (4.3-11.1) K/mcL RBC 3.77 L (3.82-4.97) M/mcL Hgb 10.8 L (11.5-15.4) g/dL Hct 34.9 L (35.3-44.9) % MCV 92.6 (83.0-100.0) fL MCH 28.6 (28.0-33.3) pg MCHC 30.9 L (31.6-35.5) g/dL RDW 14.4 (11.5-14.5) % Plt Count 158 (140-400) K/mcL MPV 9.3 L (9.4-12.4) fL Immature Gran % 0.4 (0-4) % Seg Neutrophils % 89.1 % Lymphocytes % 6.1 % Monocytes % 3.4 % Eosinophils % 0.7 % Basophils % 0.3 % Neutrophils # 14.5 H (1.6-8.9) K/mcL Lymphocytes # 1.0 (0.6-4.6) K/mcL Monocytes # 0.6 (0.0-1.3) K/mcL Eosinophils # 0.1 (0.0-0.6) K/mcL Basophils # 0.1 (0.0-0.2) K/mcL PT 11.1 (9.4-12.1) Seconds INR 1.0 APTT 30.3 (26.0-36.0) Seconds Sodium 139 (136-145) mEq/L Potassium 3.6 (3.5-5.1) mEq/L Chloride 93 L (98-107) mEq/L Carbon Dioxide 38 H (23-29) mEq/L BUN 26 H (8-23) mg/dL Creatinine 1.70 H (0.60-1.20) mg/dL Est GFR ( Amer) 36 L (> 60) Est GFR (Non-Af Amer) 30 L (> 60) BUN/Creatinine Ratio 15 (6-26) Glucose 406 H (70-105) mg/dL Calculated Osmolality 310 H (280-300) Lactic Acid (0.5-2.2) mmol/L Calcium 9.2 (8.6-10.3) mg/dL Phosphorus 2.0 L (2.7-4.5) mg/dL Magnesium 1.0 L (1.6-2.6) mg/dL Total Bilirubin 0.5 (0.3-1.0) mg/dL Direct Bilirubin 0.1 (0.0-0.2) mg/dL Indirect Bilirubin 0.4 (0.0-1.2) mg/dL AST 17 (13-39) Units/L ALT 15 (7-52) Units/L Alkaline Phosphatase 99 (34-104) Units/L Troponin I 0.15 H* (< 0.04) ng/mL Serum Total Protein 6.8 (6.4-8.9) g/dL Albumin 3.4 L (3.5-5.7) g/dL Globulin 3.4 (2.4-3.5) g/dL Albumin/Globulin Ratio 1.0 L (1.1-2.2) Lipase 15 (11-82) Units/L Ur Specimen Adequacy Urine Color (Yellow) Urine Clarity (Clear) Urine pH (5.0-8.0) pH Units Ur Specific White (1.010-1.025) Urine Protein (Neg-Trace) mg/dL Urine Glucose (UA) (Normal) mg/dL Urine Ketones (Negative) mg/dL Urine Blood (Negative) Urine Nitrite (Negative) Urine Bilirubin (Negative) Urine Urobilinogen (Normal) mg/dL Ur Leukocyte Esterase (Negative) Urine Microscopic RBC (0-3) per hpf Urine Microscopic WBC (0-3) per hpf Ur Squamous Epith Cells (None-Few) per lpf Urine Bacteria (None-Few) per hpf Hyaline Casts (None-Few) per lpf Urine Mucus (Few) Ur Culture Indicated? (NO) 11/13/18 11/13/18 Range/Units 04:55 05:30 WBC (4.3-11.1) K/mcL RBC (3.82-4.97) M/mcL Hgb (11.5-15.4) g/dL Hct (35.3-44.9) % MCV (83.0-100.0) fL MCH (28.0-33.3) pg MCHC (31.6-35.5) g/dL RDW (11.5-14.5) % Plt Count (140-400) K/mcL MPV (9.4-12.4) fL Immature Gran % (0-4) % Seg Neutrophils % % Lymphocytes % % Monocytes % % Eosinophils % % Basophils % % Neutrophils # (1.6-8.9) K/mcL Lymphocytes # (0.6-4.6) K/mcL Monocytes # (0.0-1.3) K/mcL Eosinophils # (0.0-0.6) K/mcL Basophils # (0.0-0.2) K/mcL PT (9.4-12.1) Seconds INR APTT (26.0-36.0) Seconds Sodium (136-145) mEq/L Potassium (3.5-5.1) mEq/L Chloride (98-107) mEq/L Carbon Dioxide (23-29) mEq/L BUN (8-23) mg/dL Creatinine (0.60-1.20) mg/dL Est GFR ( Amer) (> 60) Est GFR (Non-Af Amer) (> 60) BUN/Creatinine Ratio (6-26) Glucose (70-105) mg/dL Calculated Osmolality (280-300) Lactic Acid 1.9 (0.5-2.2) mmol/L Calcium (8.6-10.3) mg/dL Phosphorus (2.7-4.5) mg/dL Magnesium (1.6-2.6) mg/dL Total Bilirubin (0.3-1.0) mg/dL Direct Bilirubin (0.0-0.2) mg/dL Indirect Bilirubin (0.0-1.2) mg/dL AST (13-39) Units/L ALT (7-52) Units/L Alkaline Phosphatase (34-104) Units/L Troponin I (< 0.04) ng/mL Serum Total Protein (6.4-8.9) g/dL Albumin (3.5-5.7) g/dL Globulin (2.4-3.5) g/dL Albumin/Globulin Ratio (1.1-2.2) Lipase (11-82) Units/L Ur Specimen Adequacy See below A Urine Color Yellow (Yellow) Urine Clarity Cloudy A (Clear) Urine pH 5.5 (5.0-8.0) pH Units Ur Specific White 1.010 (1.010-1.025) Urine Protein 30 H (Neg-Trace) mg/dL Urine Glucose (UA) 500 H (Normal) mg/dL Urine Ketones Negative (Negative) mg/dL Urine Blood Large H (Negative) Urine Nitrite Positive A (Negative) Urine Bilirubin Negative (Negative) Urine Urobilinogen Normal (Normal) mg/dL Ur Leukocyte Esterase Small H (Negative) Urine Microscopic RBC 5-15 H (0-3) per hpf Urine Microscopic WBC 3-5 H (0-3) per hpf Ur Squamous Epith Cells Moderate H (None-Few) per lpf Urine Bacteria Many H (None-Few) per hpf Hyaline Casts None Seen (None-Few) per lpf Urine Mucus Few (Few) Ur Culture Indicated? YES A (NO) Attestation Statement - Attestation Attestation: I, Eliel Rico DO have provided [id number] time during the care of this patient. Detailed review the presentation, symptoms, medical history were discussed and reviewed with the advanced practice provider Diana Anderson/MANAGER MOTOR. Medical intervention labs and imaging studies were reviewed in detail. See full documentation of physical exam and course of care in the advanced practice provider's note. I agree with the determined course of care, medical intervention and disposition put forth by the advanced practice provider. See below documentation for changes or alterations in documentation. 68-year-old female presents emergency room for evaluation of generalized malaise and fever. Patient has been describing some burning with urination and gener alized malaise. She does feel like she is febrile. Vital signs initial triage show a fever. Patient does meet sepsis criteria. About back to the bed. Initial evaluation was established with CBC chemistry liver function testing lipase lactic acid. Urinalysis will also be collected and chest x-ray was ordered. EKG will be resulted as well. Patient is resting in the bed. She denying any chest pain or shortness of breath. She does not have any nausea vomiting or diarrhea. She has had fevers and chills.. She has not fallen or injured herself. She has not traveled outside the country. Patient is morbidly obese. She describes mild abdominal discomfort most likely from coughing. Patient will have workup completed and disposition determined. Lungs are clear. Oropharynx is patent trachea is midline. Heart is regular. Abdomen is soft but she does have discomfort on abdominal palpation. There is mild redness to the skin but no specific rashes or signs of cellulitis. Disposition many for the treatment course. See detailed documentation of the physical exam, medical intervention, medical decision-making and disposition in the advanced practice provider's note. No critical care pad the patient's treatment course at this time. 0600 Patient has what appears to be a urinary tract infection. She does not have any specific abdominal pain that would require CT scan at this time. There was consideration of possible imaging modality being ordered secondary to the discomfort that she described initially. Patient does not want to be transferred for this imaging modality to be completed. She was to stay at this facility be treated for urinary tract infection and see if her symptoms resolve. Patient will be provided with a single dose of Rocephin here in the emergency department. Admission process will be established. Appears to be sepsis secondary to urinary tract infection. Patient does not meet the criteria for severe sepsis or septic shock. Patient was discussed with the hospitalist Dr. Art. He had no other recommendations or concerns at this time. He understands the patient may require transfer at the symptoms change or get worse. Patient will be admitted. We will monitor here in the emergency department until the admission process is completed
--- NOTE | 2018-11-13 07:56 | Internal Med History&Physical ---
Date of Encounter: 11/13/18 Time of Encounter: 07:53 Internal Medicine - H&P: HPI Chief complaint: fever, chills, abdominal pain History of present illness: Ms. Smart is a 68 year old female with extensive past medical history as mentioned below came in with complain of chills nausea and vomiting since last night along with abdominal pain. History was obtained from patient, her and review of previous charts. Patient is poor historian. She was reportedly a bout 2 days before. She started having flulike symptoms yesterday and feeling real associated with vomiting about 3-4 episodes. She veers oxygen at home however denied any worsening of shortness of breath or chest pain. She is bedbound for many years and mentions some skin changes on her abdomen and possible sore on buttocks. Her takes care of her at home. She denies any chest pain. She has chronic back pain which waxes and wanes on and off. Currently about at baseline. She has urinary incontinence and some left-sided abdominal pain that started yesterday. Denies any cough, sore throat or difficulty breathing or chest pain. Patient was evaluated in ER and found to have leukocytosis, fevers and signs of UTI. She also had elevated troponin and mild worsening of renal function. Admission was requested for UTI. She does not know her medications or her allergies completely. Past Med Surg Social Fam HX - Past Medical History Medical history: arthritis, CHF, COPD, diabetes, GERD, hyperlipidemia, hypertens ion, osteoporosis, renal disease, thyroid disease, other Additional medical history: cellulitis, morbid obesity,neuropathy Psychiatric history: anxiety, depression - Past Surgical History Surgical History: cholecystectomy Additional surgical history: left leg surgery with wound vac, fistula - Social History Smoking Status: Never smoker Smokeless Tobacco Status: No Alcohol use: none Drug use: none - Family History Mother Living Status: Hx Family Cardiac Disorders: Yes Hx Family Respiratory Disorders: No Hx Family Cancer: Yes (COLON CANCER) Hx Family GI Disorders: Yes Hx Family Endocrine Disorder: Yes (DM) Internal Medicine - H&P: Meds Allopurinol [Zyloprim 100 MG] 100 mg PO DAILY 09/27/15 [History] Buspirone HCl [Buspar] 15 mg PO BID 09/27/15 [History] Cholecalciferol (Vitamin D3) [Vitamin D3] 2,000 unit PO DAILY 09/27/15 [History] Gabapentin [Neurontin] 600 mg PO BID 09/27/15 [History] Insulin ASPART [Novolog] 0 unit SQ TIDWM 09/27/15 [History] Metoprolol [Lopressor] 25 mg PO BID 09/27/15 [History] Omeprazole [PriLOSEC] 20 mg PO DAILY 09/27/15 [History] Potassium Chloride [Klor-Con Sprinkle] 8 meq PO DAILY 09/27/15 [History] Vitamin B Complex [B Complex] 1 tab PO DAILY 09/27/15 [History] Aspirin 81 mg PO DAILY 04/09/16 [History] DiphenhydraMINE [Benadryl] 25 mg PO Q6HR PRN 04/09/16 [History] Docusate [Colace] 300 mg PO DAILY 04/09/16 [History] Loratadine [Claritin] 10 mg PO DAILY 04/09/16 [History] Albuterol Neb [Proventil Neb] 2.5 mg IH Q4H PRN #1 inhsol 04/11/16 [Rx] Nystatin POWDER [Nystop] 1 appl TP BID #3 bottle 04/11/16 [Rx] Atorvastatin Calcium [Lipitor] 80 mg PO HS 02/01/18 [History] Levothyroxine Sodium [Synthroid] 200 mcg PO DAILY 02/01/18 [History] raNITIdine HCl [Zantac] 150 mg PO BID PRN 02/01/18 [History] Insulin DETEMIR [Levemir] 100 unit SQ BID #10 mls 04/05/18 [Rx] Furosemide [Lasix] 40 mg PO BID #40 07/08/18 [Rx] Escitalopram [Lexapro] 20 mg PO DAILY 11/13/18 [History] Lisinopril [Zestril] 40 mg PO DAILY 11/13/18 [History] Multivitamin [Daily Multiple Vitamin] 1 each PO DAILY 11/13/18 [History] Trazodone HCl 100 mg PO HS 11/13/18 [History] Allergy/AdvReac Type Severity Reaction Status Date / Time adhesive tape Allergy Rash Verified 11/13/18 04:20 codeine Allergy Hives Verified 11/13/18 04:20 hydromorphone [From Dilaudid] Allergy Itching Verified 11/13/18 12:29 Penicillins Allergy Rash Verified 11/13/18 04:20 Sulfa (Sulfonamide Allergy Rash Verified 11/13/18 04:20 Antibiotics) All Systems PM: A 10-system review of systems was performed and is negative for pertinent findings except as documented above in the HPI. - Constitutional Vitals: Temp Pulse Resp BP Pulse Ox 98.5 F 93 19 104/41 92 11/13/18 07:49 11/13/18 07:08 11/13/18 07:49 11/13/18 07:49 11/13/18 07:08 Exam: Constitutional: Vitals as noted. Conversant. No Apparent Distress. Well groomed. No obvious deformities. Eyes : Sclera white, conjunctiva clear, no lid lag, PEARLA. ENT : Grossly normal hearing. Oropharyngeal exam unremarkable. Moist mucus membranes. No JVD, no cervical lymphadenopathy. no thyromegaly or mass. Respiratory : Clear to auscultation bilaterally. No accessory muscle use, rales, rhonchi or wheezes Cardiovascular : RRR, +S1, +S2. no murmur, gallop, rubs. No chest wall tenderness GI/Abdominal : Soft, Non-tender, Non-distended, normal bowel sounds, soft, no peritoneal signs. no orgenomegaly or mass appreciated. no hernia. Musculoskeletal: no deformity noted. no edema or cyanosis. warm extremities, pulses palpable and symmetrical in UE/LE. no calf tenderness. Neurological: AO X3, CN II-XII grossly intact, grossly normal motor and sensory exam. Skin: No skin rash, lesions or ulcers noted. Pych: Good insight and judgement. Intact memory. AOx3. Internal Med - H&P Results - Labs CBC & Chem 7: 11/13/18 04:55 11/13/18 04:55 Labs: Short CBC 11/13/18 Range/Units 04:55 WBC 16.3 H (4.3-11.1) K/mcL Hgb 10.8 L (11.5-15.4) g/dL Hct 34.9 L (35.3-44.9) % Plt Count 158 (140-400) K/mcL Neutrophils # 14.5 H (1.6-8.9) K/mcL BMP 11/13/18 04:55 Sodium 139 Potassium 3.6 Chloride 93 L Carbon Dioxide 38 H BUN 26 H Creatinine 1.70 H Glucose 406 H Calcium 9.2 Cardiac Enzymes 11/13/18 Range/Units 04:55 Troponin I 0.15 H* (< 0.04) ng/mL Liver Function 11/13/18 Range/Units 04:55 Total Bilirubin 0.5 (0.3-1.0) mg/dL Direct Bilirubin 0.1 (0.0-0.2) mg/dL AST 17 (13-39) Units/L ALT 15 (7-52) Units/L Alkaline Phosphatase 99 (34-104) Units/L Albumin 3.4 L (3.5-5.7) g/dL Urine 11/13/18 Range/Units 05:30 Urine Color Yellow (Yellow) Urine Clarity Cloudy A (Clear) Urine pH 5.5 (5.0-8.0) pH Units Ur Specific [place] 1.010 (1.010-1.025) Urine Protein 30 H (Neg-Trace) mg/dL Urine Glucose (UA) 500 H (Normal) mg/dL - Impressions ITS Impressions Chest X-Ray 11/13/18 04:36 IMPRESSION: Cardiomegaly with vascular congestion and prominent interstitium suggestive of mild edema. Otherwise no acute process. D/ / Bartolo Guevara MD / Bartolo Guevara MD Interpreting Provider: Bartolo Guevara MD - Assessment and Plan (1) Urinary tract infection Current Visit: Yes Status: Acute Assessment and plan: - Patient with some signs of urinary infection and positive sirs criteria without signs of sepsis - We will continue patient on ceftriaxone based on her previous urine sensitivities. - Low threshold to broaden coverage if patient's condition worsened. - She received IV fluids of 2 L in ER. We will hold any further IV fluids given history of possible CHF and patient on diuresis. Hold Lasix for now as well. - Follow blood and urine culture - Could not get CT scan due to body habitus. Qualifiers: Urinary tract infection type: site unspecified Hematuria presence: with hematuria Qualified Code(s): N39.0 - Urinary tract infection, site not specifi ed; R31.9 - Hematuria, unspecified (2) Diabetes mellitus type 2 in obese Current Visit: Yes Status: Chronic Assessment and plan: - On high dose of insulin at home - Continue home Levemir dose. Sliding scale insulin with high intensity along with Accu-Cheks before meals at bedtime. (3) Morbid obesity with BMI of 60.0-69.9, adult Current Visit: Yes Status: Chronic (4) DVT prophylaxis Current Visit: No Status: Acute Assessment and plan: - heparin sc (5) Elevated troponin I level Current Visit: No Status: Acute Assessment and plan: - Trend troponin - Patient without chest pain - EKG with significant artifact. Repeat EKG. - May be related to demand ischemia along with CKD and CHF. - We will consider heparin drip based on the reports. (6) CKD (chronic kidney disease) Current Visit: No Status: Chronic Qualifiers: Chronic kidney disease stage: stage 3 (moderate) Qualified Code(s): N18.3 - Chronic kidney disease, stage 3 (moderate) (7) COPD (chronic obstructive pulmonary disease) Current Visit: No Status: Chronic Assessment and plan: - not in exacerbation - c/w prn albuterol. No on any other inhalers Qualifiers: COPD type: unspecified COPD Qualified Code(s): J44.9 - Chronic obstructive pulmonary disease, unspecified (8) History of congestive heart failure Current Visit: No Status: Chronic Assessment and plan: - - Time Spent With Patient Total time spent is greater than 50% in coordination of care (as documented) at patient's floor/unit and/or counseling patient:
[2018-11-13] MEDS ORDERED: Potassium Phosphate 44 MEQ in 0.9 % Sodium Chloride 250 ML IVPB ONE (08:08)
[2018-11-13] MEDS ORDERED: Naloxone 0.4 MG/ML INJ IVP PRN (08:13)
[2018-11-13] MEDS ORDERED: Albuterol 2.5 MG/3 ML NEBULIZER IH PRN (12:09)
[2018-11-13] MEDS ORDERED: Fluconazole 100 MG TABLET PO ONE (12:12)
[2018-11-13] MEDS ORDERED: Dextrose Gel 15 GM/37.5 ML TUBE PO PRN ×2 (13:29)
[2018-11-13] MEDS ORDERED: D5% in Water 1,000 ML IVC PRN (13:29)
[2018-11-13] MEDS ORDERED: *HR* Dextrose 50 % in Water (Syg) 50 ML SYRINGE IVP PRN (13:29)
[2018-11-13] MEDS ORDERED: *HR* Heparin 5,000 UNIT/ML VIAL SQ SCH (14:00)
[2018-11-13] MEDS: Insulin LISPRO 300 UNITS/3 ML VIAL SQ SCH (16:43)
[2018-11-13] MEDS ORDERED: Ondansetron 4 MG/2 ML VIAL IVP PRN (16:59)
[2018-11-13] MEDS ORDERED: *HR* Heparin 5,000 UNIT/ML VIAL IVP PRN ×2 (20:05)
[2018-11-13] MEDS ORDERED: *HR* Heparin 5,000 UNIT/ML VIAL IVP ONE (20:05)
[2018-11-13] MEDS: Gabapentin 300 MG CAPSULE PO SCH (20:12)
[2018-11-13] MEDS ORDERED: Heparin 25,000 UNIT/250 ML D5W 25,000 UNIT/250 ML IV.SOLN IVC SCH (20:15)
[2018-11-13] MEDS: Insulin DETEMIR 100 UNIT/ML X5UNITS SQ SCH (20:19)
[2018-11-13] MEDS: Nystatin POWDER 30 GM BOTTLE TP SCH (20:25)
[2018-11-13] MEDS ORDERED: NON-FORMULARY MEDICATION 1 EACH EACH (Insulin Detemir 100 UNIT) SQ SCH (21:00)
[2018-11-13 21:12] LABS: Hematocrit 29.4 % (35.3-44.9); Mean Corpuscular Volume 93.6 fL (83.0-100.0); Mean Platelet Volume 10.1 fL (9.4-12.4); Platelet Count 132 K/mcL (140-400); Red Blood Count 3.14 M/mcL (3.82-4.97); Red Cell Distribution Width 14.6 % (11.5-14.5)
[2018-11-13 21:16] LABS: Hemoglobin 9.1 g/dL (11.5-15.4)
[2018-11-13 21:20] LABS: Heparin anti-factor XA UFH 0.03 IU/mL (0.30-0.70); INR 1.2
[2018-11-13] MEDS: traZODone 50 MG TABLET PO SCH (21:32)
[2018-11-13 23:26] LABS: Acinetobacter baumannii by PCR Not Detected (Not Detect); Candida albicans by PCR Not Detected (Not Detect); Candida glabrata by PCR Not Detected (Not Detect); Candida krusei by PCR Not Detected (Not Detect); Candida parapsilosis by PCR Not Detected (Not Detect); Candida tropicalis by PCR Not Detected (Not Detect); Enterobacter cloacae Cmplx PCR Not Detected (Not Detect); Enterobacteriaceae by PCR Not Detected (Not Detect); Enterococcus by PCR DETECTED (Not Detect); Escherichia coli by PCR Not Detected (Not Detect); Klebsiella oxytoca by PCR Not Detected (Not Detect); Klebsiella pneumoniae by PCR Not Detected (Not Detect); Proteus by PCR Not Detected (Not Detect); Pseudomonas aeruginosa by PCR Not Detected (Not Detect); Serratia marcescens by PCR Not Detected (Not Detect); Staphylococcus aureus by PCR Not Detected (Not Detect); Staphylococcus by PCR Not Detected (Not Detect); Streptococcus agalactiae(B)PCR Not Detected (Not Detect); Streptococcus by PCR Not Detected (Not Detect); Streptococcus pneumoniae PCR Not Detected (Not Detect); Streptococcus pyogenes (A) PCR Not Detected (Not Detect); vanA/B Vancomycin-Resist Genes Not Detected (Not Detect)
[2018-11-14 04:45] LABS: Basophils % 0.2 %; Eosinophils # 0.1 K/mcL (0.0-0.6); Eosinophils % 0.7 %; Hemoglobin 8.6 g/dL (11.5-15.4); Immature Granulocytes % 0.3 % (0-4); Lymphocytes # 2.7 K/mcL (0.6-4.6); Lymphocytes % 17.8 %; Mean Corpuscular HGB Conc 30.7 g/dL (31.6-35.5); Mean Corpuscular Hemoglobin 28.8 pg (28.0-33.3); Mean Corpuscular Volume 93.6 fL (83.0-100.0); Mean Platelet Volume 9.7 fL (9.4-12.4); Monocytes # 0.6 K/mcL (0.0-1.3); Monocytes % 3.7 %; Neutrophils # 11.7 K/mcL (1.6-8.9); Platelet Count 127 K/mcL (140-400); Red Blood Count 2.99 M/mcL (3.82-4.97); Red Cell Distribution Width 14.9 % (11.5-14.5); Segmented Neutrophils % 77.3 %
[2018-11-14 05:07] LABS: Potassium 3.5 mEq/L (3.5-5.1)
[2018-11-14] MEDS: Insulin LISPRO 300 UNITS/3 ML VIAL SQ SCH ×3 (08:54→17:44)
[2018-11-14] MEDS: Insulin DETEMIR 100 UNIT/ML X5UNITS SQ SCH ×2 (08:54→21:18)
[2018-11-14] MEDS: Aspirin 81 MG TAB.CHEW PO SCH (08:56)
[2018-11-14] MEDS: Gabapentin 300 MG CAPSULE PO SCH ×2 (08:56→21:17)
[2018-11-14] MEDS: cefTRIAXone 1,000 MG in Water for inj. (sterile) 20 ML 10 ML IVP SCH (08:56)
[2018-11-14] MEDS: Loratadine 10 MG TABLET PO SCH (08:56)
[2018-11-14] MEDS: Lisinopril 20 MG TABLET PO SCH (08:57)
[2018-11-14] MEDS: Nystatin POWDER 30 GM BOTTLE TP SCH ×2 (08:57→21:18)
--- NOTE | 2018-11-14 09:36 | Cardiology Consult Note ---
Addendum entered and electronically signed by Pro Hamilton MD 11/14/18 12:36: I examined this patient and my medical decision-making was reviewed with the TUMBLING INSTRUCTOR. I agree with the documented findings, disposition and treatment plan as described except to the extent set forth below. A/P: Morbid obesity BMI 76 and subsequently bedbound for 2 years Elevated troponin Anemia CKD UTI/bacteremia Suspect elevated troponin 2/2 demand ischemia, not ACS. TTE pending Thank you for the consult and allowing me to participate in your patient's care Pro Hamilton MD [facility] Original Note: Date of Encounter: 11/14/18 Time of Encounter: 09:34 Assessment and Plan (1) Elevated troponin Current Visit: Yes Status: Acute Troponin 0.15, 0.18, 0.12, 0.10 in setting of infection (UTI, positive blood cultures), anemia with HGB 8.6, renal dysfunction--creatinine 1.67. Suspect demand ischemia, nondiagnostic for ACS. Denies chest pain, no ischemic changes on ECG. No cardiac hx. Bedbound. Stop heparin gtt. Will check TTE to evaluate structure and function. BMI 76.3--will order with definity. If no significant findings on TTE, will sign off. Discussion w patient/family: The assessment and plan as outlined above was discussed with the patient and/or family members who expressed understanding and agreement. All questions were answered. Thank you for involving us in the care of your patient. Please call with any questions. I will discuss all the above with Dr. Hamilton and make changes as necessary. History of Present Illness Consult date: 11/14/18 Consult reason: elevated troponin History of present illness: Ms. Smart is a 68 year old female with PMH of arthritis, COPD, DM, GERD, HLD, HTN, osteoporosis, renal disease, thyroid disease that presented with chills, nausea and vomiting, abdominal pain. Denies shortness of breath or chest pain. Evaluated in ER and found to have leukocytosis, fevers and signs of UTI, worsening renal function, anemia. Blood culture positive. Troponin 0.15, 0.18, 0.12, 0.10 and cardiology consulted for further recs. Past Med Surg Social Fam HX - Past Medical History Medical history: arthritis, COPD, diabetes, GERD, hyperlipidemia, hypertension, osteoporosis, renal disease, thyroid disease, other Additional medical history: cellulitis, morbid obesity,neuropathy Psychiatric history: anxiety, depression - Past Surgical History Surgical History: cholecystectomy Additional surgical history: left leg surgery with wound vac, fistula - Social History Smoking Status: Never smoker Smokeless Tobacco Status: No Alcohol use: none Drug use: none - Family History Mother Living Status: Age at : 75 Cause of : cancer colon Hx Family Cardiac Disorders: Yes Hx Family Respiratory Disorders: No Hx Family Cancer: Yes (COLON CANCER) Hx Family GI Disorders: Yes Hx Family Endocrine Disorder: Yes (DM) Hx Family Medical Disorders: Yes Medications and Allergies Allopurinol [Zyloprim 100 MG] 100 mg PO DAILY 09/27/15 [History] Buspirone HCl [Buspar] 15 mg PO BID 09/27/15 [History] Cholecalciferol (Vitamin D3) [Vitamin D3] 2,000 unit PO DAILY 09/27/15 [History] Gabapentin [Neurontin] 600 mg PO BID 09/27/15 [History] Insulin ASPART [Novolog] 0 unit SQ TIDWM 09/27/15 [History] Metoprolol [Lopressor] 25 mg PO BID 09/27/15 [History] Omeprazole [PriLOSEC] 20 mg PO DAILY 09/27/15 [History] Potassium Chloride [Klor-Con Sprinkle] 8 meq PO DAILY 09/27/15 [History] Vitamin B Complex [B Complex] 1 tab PO DAILY 09/27/15 [History] Aspirin 81 mg PO DAILY 04/09/16 [History] DiphenhydraMINE [Benadryl] 25 mg PO Q6HR PRN 04/09/16 [History] Docusate [Colace] 300 mg PO DAILY 04/09/16 [History] Loratadine [Claritin] 10 mg PO DAILY 04/09/16 [History] Albuterol Neb [Proventil Neb] 2.5 mg IH Q4H PRN #1 inhsol 04/11/16 [Rx] Nystatin POWDER [Nystop] 1 appl TP BID #3 bottle 04/11/16 [Rx] Atorvastatin Calcium [Lipitor] 80 mg PO HS 02/01/18 [History] Levothyroxine Sodium [Synthroid] 200 mcg PO DAILY 02/01/18 [History] raNITIdine HCl [Zantac] 150 mg PO BID PRN 02/01/18 [History] Insulin DETEMIR [Levemir] 100 unit SQ BID #10 mls 04/05/18 [Rx] Furosemide [Lasix] 40 mg PO BID #40 07/08/18 [Rx] Escitalopram [Lexapro] 20 mg PO DAILY 11/13/18 [History] Lisinopril [Zestril] 40 mg PO DAILY 11/13/18 [History] Multivitamin [Daily Multiple Vitamin] 1 each PO DAILY 11/13/18 [History] Trazodone HCl 100 mg PO HS 11/13/18 [History] Allergy/AdvReac Type Severity Reaction Status Date / Time adhesive tape Allergy Rash Verified 11/13/18 04:20 codeine Allergy Hives Verified 11/13/18 04:20 hydromorphone [From Dilaudid] Allergy Itching Verified 11/13/18 12:29 Penicillins Allergy Rash Verified 11/13/18 04:20 Sulfa (Sulfonamide Allergy Rash Verified 11/13/18 04:20 Antibiotics) All Systems Review: The remainder of the systems were reviewed and are negative - Constitutional Constitutional: chills, fever(s) - Gastrointestinal Gastrointestinal: abdominal pain, nausea Physical Examination Vital Signs, Last 4 Hours Temp Pulse Resp BP Pulse Ox 11/14/18 08:06 98.4 F 64 16 135/53 94 Vital Signs Temp Pulse Resp BP Pulse Ox 11/14/18 08:06 98.4 F 64 16 135/53 94 11/14/18 04:26 97.6 F 72 21 135/55 90 11/14/18 01:14 98.4 F 66 21 97/40 93 11/13/18 18:58 99.2 F 88 19 130/48 77 11/13/18 15:09 99.2 F 81 17 158/62 96 11/13/18 10:37 98.5 F 79 16 141/68 93 Intake and Output 11/13/18 11/14/18 11/14/18 23:59 07:59 15:59 Intake Total 260 / 260 180 / 180 Balance 260 / 260 180 / 180 Intake: IV Fluids 260 / 260 180 / 180 Heparin 25,000 UNIT/250 ML D5W 78 / 78 25,000 unit In 250 ml @ 4.5 UNIT/KG/HR 10.035 mls/hr IVC . Q24H [facility] Rx#:[id number] Other: Weight 226 kg 227.5 kg Blood Glucose* 365 212 Patient Weight 11/14/18 23:59 Weight 227.5 kg General: Conversant, No Apparent Distress HEENT: Atraumatic, Normocephaly, Mucus Membranes Moist Neck: No JVD, Normal carotid pulses Cardiac: Reg Rate and Rhythm, Normal S1 and S2, No Murmur Lungs: Normal Breath Sounds, No Wheeze, Rales, Rhonchi Neuro: Alert and responsive, No focal deficits noted Abdomen: Soft, Non-Tender Skin: No rashes noted on visualized skin Musculoskeletal: No Chest Wall Tenderness Extremities: No Clubbing, No Cyanosis, No Edema, Normal Pulses Results 11/14/18 04:36 11/14/18 04:36 Lab Results 11/13/18 11/13/18 11/13/18 13:02 18:22 20:58 WBC 15.8 H Hgb 9.1 L D Hct 29.4 L Plt Count 132 L INR Sodium Potassium Chloride Carbon Dioxide BUN Creatinine Glucose Calcium Troponin I 0.18 H* 0.12 H* B-Natriuretic Peptide 11/13/18 11/14/18 11/14/18 20:58 00:10 04:36 WBC 15.1 H Hgb 8.6 L Hct 28.0 L Plt Count 127 L INR 1.2 Sodium Potassium Chloride Carbon Dioxide BUN Creatinine Glucose Calcium Troponin I 0.10 H* B-Natriuretic Peptide 11/14/18 11/14/18 11/14/18 04:36 04:36 08:48 WBC Hgb Hct Plt Count INR Sodium 137 Potassium 3.5 Chloride 94 L Carbon Dioxide 34 H BUN 29 H Creatinine 1.67 H Glucose 265 H Calcium 8.0 L Troponin I 0.06 H* B-Natriuretic Peptide 213 H Short CBC 11/14/18 11/13/18 Range/Units 04:36 20:58 WBC 15.1 H 15.8 H (4.3-11.1) K/mcL Hgb 8.6 L 9.1 L D (11.5-15.4) g/dL Hct 28.0 L 29.4 L (35.3-44.9) % Plt Count 127 L 132 L (140-400) K/mcL Neutrophils # 11.7 H (1.6-8.9) K/mcL BMP 11/14/18 Range/Units 04:36 Sodium 137 (136-145) mEq/L Potassium 3.5 (3.5-5.1) mEq/L Chloride 94 L (98-107) mEq/L Carbon Dioxide 34 H (23-29) mEq/L BUN 29 H (8-23) mg/dL Creatinine 1.67 H (0.60-1.20) mg/dL Glucose 265 H (70-105) mg/dL Calcium 8.0 L (8.6-10.3) mg/dL Cardiac Enzymes 11/14/18 11/14/18 11/13/18 Range/Units 08:48 00:10 18:22 Troponin I 0.06 H* 0.10 H* 0.12 H* (< 0.04) ng/mL 11/13/18 Range/Units 13:02 Troponin I 0.18 H* (< 0.04) ng/mL Active Medications Albuterol Sulfate (Proventil Neb) 2.5 mg IH Q4H PRN; Protocol PRN Reason: Shortness Of Breath/Wheezing Stop: 05/15/19 12:10 Allopurinol (Zyloprim) 100 mg PO DAILY [facility] Stop: 05/16/19 09:01 Last Admin: 11/14/18 08:56 Dose: 100 mg Aspirin (Aspirin) 81 mg PO DAILY [facility] Stop: 05/16/19 09:01 Last Admin: 11/14/18 08:56 Dose: 81 mg Atorvastatin Calcium (Lipitor) 80 mg PO HS [facility] Stop: 05/15/19 21:01 Last Admin: 11/13/18 20:13 Dose: 80 mg Buspirone HCl (Buspar) 15 mg PO BID [facility] Stop: 05/15/19 21:01 Last Admin: 11/14/18 08:55 Dose: 15 mg Dextrose/Water (Dextrose 50% (Syg)) 25 ml IVP AD PRN PRN Reason: Hypoglycemia Stop: 05/15/19 13:30 Gabapentin (Neurontin) 600 mg PO BID [facility] Stop: 05/15/19 21:01 Last Admin: 11/14/18 08:56 Dose: 600 mg Glucagon (Glucagen) 1 mg IM ONCE PRN PRN Reason: Hypoglycemia Stop: 05/15/19 13:30 Glucose (Gluctose) 15 gm PO ONCE PRN PRN Reason: Hypoglycemia Stop: 05/15/19 13:30 Glucose (Gluctose) 30 gm PO ONCE PRN PRN Reason: Hypoglycemia Stop: 05/15/19 13:30 Heparin Sodium (Porcine) (Heparin) 4,000 unit IVP Q6HR PRN PRN Reason: SEE COMMENTS Stop: 05/15/19 20:06 Heparin Sodium (Porcine) (Heparin) 2,000 unit IVP Q6H PRN PRN Reason: SEE COMMENTS Stop: 05/15/19 20:06 Last Admin: 11/14/18 05:46 Dose: 2,000 unit Ceftriaxone Sodium 1,000 mg/ (Sterile Water) 10 mls @ 600 mls/hr IVP DAILY [facility] Stop: 05/16/19 09:01 Last Admin: 11/14/18 08:56 Dose: 600 mls/hr Dextrose (Dextrose 5%) 1,000 mls @ 100 mls/hr IVC .Q10H PRN PRN Reason: HYPOGLYCEMIA Stop: 05/15/19 13:30 Heparin Sodium/Dextrose (Heparin 25,000 Unit/250 Ml D5w) 25,000 unit in 250 mls @ 10.035 mls/hr IVC .Q24H [facility]; Protocol Stop: 05/15/19 20:16 Last Titration: 11/14/18 05:52 Dose: 5.38 unit/kg/hr, 12 mls/hr Insulin Detemir (Levemir) 100 unit SQ BID [facility] Stop: 05/15/19 21:01 Last Admin: 11/14/18 08:54 Dose: 100 unit Insulin Human Lispro (Humalog) 0 units SQ TIDAC [facility]; Protocol Stop: 05/15/19 16:31 Last Admin: 11/14/18 08:54 Dose: 8 units Levothyroxine Sodium (Synthroid) 200 mcg PO 0630 [facility] Stop: 05/16/19 06:31 Last Admin: 11/14/18 05:45 Dose: 200 mcg Lisinopril (Zestril) 40 mg PO DAILY [facility]; Protocol Stop: 05/16/19 09:01 Last Admin: 11/14/18 08:57 Dose: Not Given Loratadine (Claritin) 10 mg PO DAILY [facility]; Protocol Stop: 05/16/19 09:01 Last Admin: 11/14/18 08:56 Dose: 10 mg Metoprolol Tartrate (Lopressor) 25 mg PO BID [facility] Stop: 05/15/19 21:01 Last Admin: 11/14/18 08:55 Dose: 25 mg Naloxone HCl (Narcan) 0.4 mg IVP Q2M PRN PRN Reason: SEE COMMENTS Stop: 05/15/19 08:14 Nystatin (Nystop) 1 appl TP BID [facility] Stop: 05/15/19 21:01 Last Admin: 11/14/18 08:57 Dose: 1 appl Omeprazole (Prilosec) 20 mg PO 0730 [facility]; Protocol Stop: 05/16/19 07:31 Last Admin: 11/14/18 08:55 Dose: 20 mg Ondansetron HCl (Zofran) 4 mg IVP Q6HR PRN; Protocol PRN Reason: Nausea Stop: 05/15/19 17:00 Last Admin: 11/13/18 17:41 Dose: 4 mg Trazodone HCl (Trazodone) 100 mg PO HS [facility] Stop: 05/15/19 21:01 Last Admin: 11/13/18 21:32 Dose: 100 mg - EKG Interpretation EKG results cardiology: personally reviewed (SR) Consult Discharge Plan - Plan Referrals: NONE,PCP [Primary Care Provider] -
--- NOTE | 2018-11-14 09:58 | Electrocardiograph Report ---
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
--- NOTE | 2018-11-14 10:05 | Electrocardiograph Report ---
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
--- NOTE | 2018-11-14 11:06 | Internal Med Progress Note ---
Hospitalist Progress Note - Encounter Date of Encounter: 11/14/18 Time of Encounter: 10:41 - Subjective Interval History: Patient seen and examined this morning at bedside. No acute overnight events. Patient feeling better. Denies any difficulty breathing fevers chills nausea or vomiting. Passing urine without any difficulty. Somewhat constipated. - Exam Vitals: Temp Pulse Resp BP Pulse Ox 98.4 F 64 16 135/53 94 11/14/18 08:06 11/14/18 08:06 11/14/18 08:06 11/14/18 08:06 11/14/18 08:06 Exam: Constitutional: Vitals as noted. Conversant. Morbid obesity Respiratory : Clear to auscultation bilaterally. No accessory muscle use, rales, rhonchi or wheezes Cardiovascular : RRR, +S1, +S2. no murmur, gallop, rubs. No chest wall tenderness GI/Abdominal : Soft, Non-tender, Non-distended, edema on abdominal pannus on Lt side with skin excoriatiions. Musculoskeletal: no deformity noted. trace edema or cyanosis. no calf tenderness. Neurological: AO X3, CN II-XII grossly intact, grossly normal motor and sensory exam. Skin: skin excoriation on abdomen. - Assessment and Plan (1) Urinary tract infection Current Visit: Yes Status: Acute (2) Diabetes mellitus type 2 in obese Current Visit: Yes Status: Chronic (3) Morbid obesity with BMI of 60.0-69.9, adult Current Visit: Yes Status: Chronic (4) DVT prophylaxis Current Visit: No Status: Acute (5) Elevated troponin I level Current Visit: No Status: Acute (6) CKD (chronic kidney disease) Current Visit: No Status: Chronic (7) COPD (chronic obstructive pulmonary disease) Current Visit: No Status: Chronic (8) History of congestive heart failure Current Visit: No Status: Chronic - Summary of Assessment and Plan Summary of Assessment and Plan: Urinary tract infection - c/w ceftriaxone - f/u urine cultures. NGTD - Could not get CT scan due to body habitus. Enterococcal Bacteremia - 1/2 bottles in blood cultures. Will repeat cultures. However patient clinically improved - Will add ampicillin for now. Had rash with penicillin which she could not rememeber well. Denies any life threatening reaction to antibiotics. Agrees to start ampicillin and monitor for reaction. Will get ID consultation tomorrow. - f/u ECHO. Elevated troponin I level - Was started heparin drip yesterday. However troponin now downtrending - Patient without chest pain or EKG changes - Cardiology consulted. Recommendation apppreicated. Likely demand ischemia - Heparin stopped. f/u ECHO Diabetes mellitus type 2 in obese - On high dose of insulin at home - Continue home Levemir dose. Sliding scale insulin with high intensity along with Accu-Cheks before meals at bedtime. CKD - appears to be stable - monitor renal function COPD - not in exacerbation - c/w prn albuterol. No on any other inhalers DVT prophylaxis - heparin sc - Time Spent with Patient Total time spent is greater than 50% in coordination of care (as documented) at patient's floor/unit and/or counseling patient: Internal Medicine: Result - Labs CBC & Chem 7: 11/14/18 04:36 11/14/18 04:36 Labs: Short CBC 11/13/18 11/14/18 Range/Units 20:58 04:36 WBC 15.8 H 15.1 H (4.3-11.1) K/mcL Hgb 9.1 L D 8.6 L (11.5-15.4) g/dL Hct 29.4 L 28.0 L (35.3-44.9) % Plt Count 132 L 127 L (140-400) K/mcL Neutrophils # 11.7 H (1.6-8.9) K/mcL BMP 11/14/18 04:36 Sodium 137 Potassium 3.5 Chloride 94 L Carbon Dioxide 34 H BUN 29 H Creatinine 1.67 H Glucose 265 H Calcium 8.0 L Cardiac Enzymes 11/13/18 11/13/18 11/14/18 Range/Units 13:02 18:22 00:10 Troponin I 0.18 H* 0.12 H* 0.10 H* (< 0.04) ng/mL 11/14/18 Range/Units 08:48 Troponin I 0.06 H* (< 0.04) ng/mL - ABG Interpretation ABG results: PT/INR, D-dimer PT 13.0 Seconds (9.4-12.1) H 11/13/18 20:58 Consult Discharge Plan - Plan Referrals: NONE,PCP [Primary Care Provider] - (1) Urinary tract infection Qualifiers: Urinary tract infection type: site unspecified Hematuria presence: with hematuria Qualified Code(s): N39.0 - Urinary tract infection, site not specified; R31.9 - Hematuria, unspecified (6) CKD (chronic kidney disease) Qualifiers: Chronic kidney disease stage: stage 3 (moderate) Qualified Code(s): N18.3 - Chronic kidney disease, stage 3 (moderate) (7) COPD (chronic obstructive pulmonary disease) Qualifiers: COPD type: unspecified COPD Qualified Code(s): J44.9 - Chronic obstructive pulmonary disease, unspecified
[2018-11-14] MEDS: Ampicillin 1,000 MG in 0.9 % Sodium Chloride Mini Bag 100 ML IVPB SCH ×2 (13:05→18:47)
[2018-11-14] MEDS: *HR* Heparin 5,000 UNIT/ML VIAL SQ SCH (18:47)
[2018-11-14] MEDS: traZODone 50 MG TABLET PO SCH (21:17)
[2018-11-15] MEDS: Ampicillin 1,000 MG in 0.9 % Sodium Chloride Mini Bag 100 ML IVPB SCH ×3 (00:33→13:59)
[2018-11-15 05:31] LABS: Basophils % 0.2 %; Eosinophils # 0.6 K/mcL (0.0-0.6); Eosinophils % 5.7 %; Hemoglobin 8.5 g/dL (11.5-15.4); Immature Granulocytes % 0.2 % (0-4); Lymphocytes # 2.8 K/mcL (0.6-4.6); Mean Corpuscular HGB Conc 30.4 g/dL (31.6-35.5); Mean Corpuscular Hemoglobin 28.6 pg (28.0-33.3); Mean Corpuscular Volume 94.3 fL (83.0-100.0); Mean Platelet Volume 9.7 fL (9.4-12.4); Monocytes # 0.5 K/mcL (0.0-1.3); Monocytes % 5.1 %; Platelet Count 112 K/mcL (140-400); Red Blood Count 2.97 M/mcL (3.82-4.97); Red Cell Distribution Width 14.8 % (11.5-14.5); Segmented Neutrophils % 60.8 %
[2018-11-15 05:51] LABS: Calcium 8.4 mg/dL (8.6-10.3); Potassium 3.6 mEq/L (3.5-5.1)
[2018-11-15] MEDS: *HR* Heparin 5,000 UNIT/ML VIAL SQ SCH ×2 (06:43→17:03)
[2018-11-15] MEDS: Gabapentin 300 MG CAPSULE PO SCH ×2 (08:06→21:09)
[2018-11-15] MEDS: Loratadine 10 MG TABLET PO SCH (08:06)
[2018-11-15] MEDS: Aspirin 81 MG TAB.CHEW PO SCH (08:06)
[2018-11-15] MEDS: cefTRIAXone 1,000 MG in Water for inj. (sterile) 20 ML 10 ML IVP SCH (08:06)
[2018-11-15] MEDS: Nystatin POWDER 30 GM BOTTLE TP SCH ×2 (08:07→21:13)
[2018-11-15] MEDS: Insulin LISPRO 300 UNITS/3 ML VIAL SQ SCH ×3 (08:22→16:51)
[2018-11-15] MEDS: Insulin DETEMIR 100 UNIT/ML X5UNITS SQ SCH ×2 (08:22→21:24)
[2018-11-15] MEDS ORDERED: Perflutren Lipid Microsphere 1.3 ML in 0.9 % Sodium Chloride 8.7 ML IVP ONE (08:54)
--- NOTE | 2018-11-15 09:26 | Infectious Disease Consult ---
Infectious Disease-Consult - Encounter Date/Time Date of Encounter: 11/15/18 Time of Encounter: 10:00 - Data of Consult Requesting Physician: Adriana Randolph MD Primary Care Provider: PCP NONE - HPI HPI: Mrs. Smart is a 68-year-old female admitted with sepsis secondary to UTI on 11/13/2018. Infectious disease was consulted on 11/15/2018 for enterococcal bacteremia. Patient is a 68-year-old female with a past medical history of immobility secondary to morbid obesity, DMII, CHF, COPD, CKD, and frequent urinary incontinence who presented to the emergency department on 11/13/18 for a chief complaint of chills, nausea, and left sided abdominal pain. Evaluation in the emergency department revealed a fever of 101.0, borderline tachycardia, tachypnea, and leukocytosis of 16.3. Lactic acid was borderline at 1.9. Her urinalysis was concerning for a UTI. Patient was diagnosed with sepsis secondary to UTI and admitted to the hospital for further care and management. Prior to admission blood and urine cultures were collected, she was bolused with IV fluids, and she received one dose of Rocephin. During her admission patient was continued on rocephin 1g daily. Her blood cultures from 11/13 grew enterococcus x 1 and she was started on ampicillin as well. She has a penicillin allergy which produces a rash, however has not had any reactions to the ampicillin during this admission. Her urine culture subsequently grew klebsiella pneumonia. Repeat blood cultures were obtained on 11/14 and are pending. Her leukocytosis has significantly improved and is at 9.9 today. She has not spiked any further fevers and has been hemodynamically stable aside from one recorded heart rate of 105. This morning patient states she feels improved. Denies dysuria, abdominal pain, or flank tenderness. She does admit to frequent urinary incontinence at home. Also complains of a skin tear overlying the buttock. She denies any recent fevers, chills, chest pain, SOB, cough, abdominal pain, Nausea, vomiting, diarrhea, constipation, rash, hematochezia, or melena. - ROS Review of Systems: 10 System review of systems performed and negative except as stated in HPI - Results CBC & Chem 7: 11/15/18 05:18 11/15/18 05:18 - Exam Vitals: Temp Pulse Resp BP Pulse Ox 98.9 F 55 17 128/52 97 11/15/18 07:18 11/15/18 07:18 11/15/18 07:18 11/15/18 07:18 11/15/18 08:25 Exam: General: morbidly obese, pleasant, no acute distress HEENT: head is atraumatic and normocephalic, pupils are equal, EOMI, mucosa moist, external ears and nares patent. Neck: unable to assess for JVD due to body habitus, trachea midline Chest: symmetrical chest wall rise, no tenderness to palpation Cardiovascular: regular rate and rhythm, no murmurs Respiratory: clear to auscultation bilaterally, no rales ronchi or wheezing Abdomen: soft, mild tenderness in the LLQ, no guarding or rigidity Extremities: obese, no cyanosis or clubbing Neurological: alert and oriented, no obvious focal neurological deficit Psych: appropriate mood and affect RX: Allopurinol [Zyloprim 100 MG] 100 mg PO DAILY 09/27/15 [History] RX: Buspirone HCl [Buspar] 15 mg PO BID 09/27/15 [History] RX: Cholecalciferol (Vitamin D3) [Vitamin D3] 2,000 unit PO DAILY 09/27/15 [History] RX: Gabapentin [Neurontin] 600 mg PO BID 09/27/15 [History] RX: Insulin ASPART [Novolog] 0 unit SQ TIDWM 09/27/15 [History] RX: Metoprolol [Lopressor] 25 mg PO BID 09/27/15 [History] RX: Omeprazole [PriLOSEC] 20 mg PO DAILY 09/27/15 [History] RX: Potassium Chloride [Klor-Con Sprinkle] 8 meq PO DAILY 09/27/15 [History] RX: Vitamin B Complex [B Complex] 1 tab PO DAILY 09/27/15 [History] RX: Aspirin 81 mg PO DAILY 04/09/16 [History] RX: DiphenhydraMINE [Benadryl] 25 mg PO Q6HR PRN 04/09/16 [History] RX: Docusate [Colace] 300 mg PO DAILY 04/09/16 [History] RX: Loratadine [Claritin] 10 mg PO DAILY 04/09/16 [History] RX: Albuterol Neb [Proventil Neb] 2.5 mg IH Q4H PRN #1 inhsol 04/11/16 [Rx] RX: Nystatin POWDER [Nystop] 1 appl TP BID #3 bottle 04/11/16 [Rx] RX: Atorvastatin Calcium [Lipitor] 80 mg PO HS 02/01/18 [History] RX: Levothyroxine Sodium [Synthroid] 200 mcg PO DAILY 02/01/18 [History] RX: raNITIdine HCl [Zantac] 150 mg PO BID PRN 02/01/18 [History] RX: Insulin DETEMIR [Levemir] 100 unit SQ BID #10 mls 04/05/18 [Rx] RX: Furosemide [Lasix] 40 mg PO BID #40 07/08/18 [Rx] Escitalopram [Lexapro] 20 mg PO DAILY 11/13/18 [History] Lisinopril [Zestril] 40 mg PO DAILY 11/13/18 [History] Multivitamin [Daily Multiple Vitamin] 1 each PO DAILY 11/13/18 [History] RX: Trazodone HCl 100 mg PO HS 11/13/18 [History] Allergy/AdvReac Type Severity Reaction Status Date / Time adhesive tape Allergy Rash Verified 11/13/18 04:20 codeine Allergy Hives Verified 11/13/18 04:20 hydromorphone [From Dilaudid] Allergy Itching Verified 11/13/18 12:29 Penicillins Allergy Rash Verified 11/13/18 04:20 Sulfa (Sulfonamide Allergy Rash Verified 11/13/18 04:20 Antibiotics) - Assessment and Plan (1) Severe sepsis Current Visit: Yes Status: Acute -Severe sepsis likely secondary to UTI. Patient had leukocytosis, fever, tachycardia, and tachypnea on presentation with evidence of end organ damage as she had troponin elevation and TAMARA -Urine culture growing Klebsiella pneumoniae sensitive to ceftriaxone -Blood culture x 1 grew gram-positive cocci, enterococcus by serology. Repeat blood cultures obtained yesterday and are pending, NGTD -Patient is clinically improved, vitals stable and leukocytosis resolved Plan: -Sepsis resolved, clinically improved -Will discontinue rocephin and ampicillin and start Augmentin for 14 days -Patient also complained of a skin tear, nursing staff turned the patient and evaluated her skin and found a small skin tear but no evidence for sacral decubitus ulcer. Allevyn pad was applied. SNOMED Code(s): 30257676 (2) Urinary tract infection Current Visit: Yes Status: Acute -Sepsis secondary to UTI -Urine culture grew klebsiella pneumoniae sensitive to rocephin -Initial blood cultures grew gram-positive cocci, enterococcus by serology, patient started on ampicillin Plan: -Discontinued rocephin and ampicillin -Started Augmentin 875mg BID for 14 days -Follow-up repeat blood cultures Qualifiers: Urinary tract infection type: site unspecified Hematuria presence: with hematuria Qualified Code(s): N39.0 - Urinary tract infection, site not specified; R31.9 - Hematuria, unspecified SNOMED Code(s): 92502365 (3) Morbid obesity with BMI of 70 and over, adult Current Visit: Yes Status: Acute -Bedbound secondary to morbid obesity - helps patient at home, the patient states that she has frequent urinary incontinence, and at times fecal incontinence as well -This increases the risk for urinary tract infections as well as skin breakdown and development of sacral decubitus ulcers -Nursing evaluated the patient's skin and found a small skin tear to which an Allevyn pad was applied, no evidence for ulceration was identified SNOMED Code(s): 088931736 (4) Diabetes mellitus Current Visit: Yes Status: Acute SNOMED Code(s): 31308773 (5) Elevated troponin Current Visit: Yes Status: Acute Cardiology value to the patient and deemed troponin elevation to be secondary to demand ischemia SNOMED Code(s): 711377520, 125630677, 079981213 (6) CKD (chronic kidney disease) Current Visit: No Status: Chronic -TAMARA on CKD, improving Qualifiers: Chronic kidney disease stage: stage 3 (moderate) Qualified Code(s): N18.3 - Chronic kidney disease, stage 3 (moderate) SNOMED Code(s): 147410381 Past Med Surg Social Fam HX - Past Medical History Medical history: arthritis, COPD, diabetes, GERD, hyperlipidemia, hypertension, osteoporosis, renal disease, thyroid disease, other Additional medical history: cellulitis, morbid obesity,neuropathy Psychiatric history: anxiety, depression - Past Surgical History Surgical History: cholecystectomy Additional surgical history: left leg surgery with wound vac, fistula - Social History Smoking Status: Never smoker Smokeless Tobacco Status: No Alcohol use: none Drug use: none - Family History Mother Living Status: Age at : 75 Cause of : cancer colon Hx Family Cardiac Disorders: Yes Hx Family Respiratory Disorders: No Hx Family Cancer: Yes (COLON CANCER) Hx Family GI Disorders: Yes Hx Family Endocrine Disorder: Yes (DM) Hx Family Medical Disorders: Yes Consult Discharge Plan - Plan Referrals: NONE,PCP [Primary Care Provider] - - Attending Attestation I examined this patient and my medical decision-making was reviewed with the Resident Physician. I agree with the documented findings, disposition and treatment plan as described except to the extent set forth below. Patient is 68-year-old woman with a BMI of 77 who has chronic urinary incontinence and sometimes bowel incontinence. I asked the patient if she knows why and she says she is not sure. Patient came in was sepsis like picture and was noted to have enterococcus faecalis in the blood stream 1 out of 2 sets positive and also Klebsiella pneumoniae UTI that is pansensitive. Patient has been on Rocephin and ampicillin were asked to evaluate the patient and make further recommendations. Clinically patient looks great and nontoxic states she is significantly better. I anticipate that the enterococcus is ampicillin sensitive. Assessment and plan: Severe sepsis secondary to bacteremia with Enterococcus faecalis and year tract infection with capsular pneumoniae clinically patient improved significantly. Patient supposedly allergic to penicillin but has been tolerating ampicillin wonderfully. DC ampicillin start Augmentin 875. Duration 14 days total We will sign off, please let us know if he has any other assistance.
--- NOTE | 2018-11-15 10:26 | Internal Med Progress Note ---
Hospitalist Progress Note - Encounter Date of Encounter: 11/15/18 Time of Encounter: 10:26 - Subjective Interval History: Patient seen and examined this morning at bedside. No acute overnight events. Patient feeling slightly depressed today however denies any other complaints. Remains afebrile. Denies any abdominal pain bowel or urinary complaints. - Exam Vitals: Temp Pulse Resp BP Pulse Ox 98.9 F 55 17 128/52 97 11/15/18 07:18 11/15/18 07:18 11/15/18 07:18 11/15/18 07:18 11/15/18 08:25 Exam: Constitutional: Vitals as noted. Conversant. Morbid obesity and bedbound Respiratory : Clear to auscultation bilaterally however distant sounds difficult to appreciate due to body habitus. No accessory muscle use, rales, rhonchi or wheezes Cardiovascular : RRR, +S1, +S2. no murmur, gallop, rubs GI/Abdominal : Soft, Non-tender, Non-distended, edema on abdominal pannus on Lt side with skin excoriatiions. Musculoskeletal: no deformity noted. trace edema or cyanosis. no calf tenderness. Neurological: AO X3, CN II-XII grossly intact, grossly normal motor and sensory exam. Skin: skin excoriation on abdomen. Could not examine patient's back is a morbid obesity. - Assessment and Plan (1) Urinary tract infection Current Visit: Yes Status: Acute (2) Diabetes mellitus type 2 in obese Current Visit: Yes Status: Chronic (3) Morbid obesity with BMI of 60.0-69.9, adult Current Visit: Yes Status: Chronic (4) DVT prophylaxis Current Visit: No Status: Acute (5) Elevated troponin I level Current Visit: No Status: Acute (6) CKD (chronic kidney disease) Current Visit: No Status: Chronic (7) COPD (chronic obstructive pulmonary disease) Current Visit: No Status: Chronic (8) History of congestive heart failure Current Visit: No Status: Chronic - Summary of Assessment and Plan Summary of Assessment and Plan: Urinary tract infection - c/w ceftriaxone as urine growing klebisella sensitive to cephalosporins. May change to augmentin. ID recommendations appreicated - Improved wbc and patient with clinical improvement. Enterococcal Bacteremia - 1/2 bottles in blood cultures. Repeat cultures NGTD. - Started on ampicillin for now. Did not have any reaction to ampicillin. - ID consulted. recommendation appreciated. - ECHO limited due to body habitus. Grossly normal LV function. Valves not commented for vegetations. Elevated troponin I level - Patient without chest pain or EKG changes. Heparin stopped per cardio - Likely demand ischemia. - ECHO as above Diabetes mellitus type 2 in obese - On high dose of insulin at home - c/w Levemir. Decrease dose to 80 BID as BG on lower end. SSI with Accu-Cheks before meals at bedtime. CKD - appears to be stable - monitor renal function COPD - not in exacerbation - c/w prn albuterol. No on any other inhalers DVT prophylaxis - heparin sc - Time Spent with Patient Total time spent is greater than 50% in coordination of care (as documented) at patient's floor/unit and/or counseling patient: Internal Medicine: Result - Labs CBC & Chem 7: 11/15/18 05:18 11/15/18 05:18 Labs: Short CBC 11/15/18 Range/Units 05:18 WBC 9.9 (4.3-11.1) K/mcL Hgb 8.5 L (11.5-15.4) g/dL Hct 28.0 L (35.3-44.9) % Plt Count 112 L (140-400) K/mcL Neutrophils # 6.0 (1.6-8.9) K/mcL BMP 11/15/18 05:18 Sodium 141 Potassium 3.6 Chloride 98 Carbon Dioxide 39 H BUN 33 H Creatinine 1.52 H Glucose 123 H Calcium 8.4 L - ABG Interpretation ABG results: PT/INR, D-dimer PT 13.0 Seconds (9.4-12.1) H 11/13/18 20:58 Consult Discharge Plan - Plan Referrals: NONE,PCP [Primary Care Provider] - (1) Urinary tract infection Qualifiers: Urinary tract infection type: site unspecified Hematuria presence: with hematuria Qualified Code(s): N39.0 - Urinary tract infection, site not specified; R31.9 - Hematuria, unspecified (6) CKD (chronic kidney disease) Qualifiers: Chronic kidney disease stage: stage 3 (moderate) Qualified Code(s): N18.3 - Chronic kidney disease, stage 3 (moderate) (7) COPD (chronic obstructive pulmonary disease) Qualifiers: COPD type: unspecified COPD Qualified Code(s): J44.9 - Chronic obstructive pulmonary disease, unspecified
--- NOTE | 2018-11-15 11:34 | Event Note ---
Date of Encounter: 11/15/18 Time of Encounter: 11:33 - Cardiology Event Note Mild, adynamic troponin elevation in the setting of baceteremia, UTI, sepsis, anemia, demand ischemia. TTE with grossly normal LVEF, however difficult due to body habitus. Cardiology will sign off, re-consult if needed.
[2018-11-15] MEDS ORDERED: Amoxicillin/Clavulanate 500 MG TABLET PO SCH (17:00)
[2018-11-15] MEDS: traZODone 50 MG TABLET PO SCH (21:08)
[2018-11-16] MEDS: *HR* Heparin 5,000 UNIT/ML VIAL SQ SCH (05:34)
[2018-11-16] MEDS: Insulin LISPRO 300 UNITS/3 ML VIAL SQ SCH ×2 (08:49→13:15)
[2018-11-16] MEDS: Gabapentin 300 MG CAPSULE PO SCH (08:50)
[2018-11-16] MEDS: Loratadine 10 MG TABLET PO SCH (08:50)
[2018-11-16] MEDS: Aspirin 81 MG TAB.CHEW PO SCH (08:51)
[2018-11-16] MEDS: Nystatin POWDER 30 GM BOTTLE TP SCH (08:54)
[2018-11-16] MEDS: Insulin DETEMIR 100 UNIT/ML X5UNITS SQ SCH (08:55)
--- NOTE | 2018-11-16 09:31 | Discharge Summary ---
- NOTES TO OUTPATIENT PROVIDER Notes to Outpatient Provider: Patient to finish 14 day course of antibiotics. Orders not resulted at time of discharge: Pending orders 11/13/18 04:55 Culture,Blood [BC] Stat 11/14/18 11:30 Culture,Blood [BC] Routine Date of Encounter: 11/16/18 Time of Encounter: 09:29 - Discharge Diagnosis (1) Urinary tract infection Priority: Primary Status: Acute Qualifiers: Urinary tract infection type: site unspecified Hematuria presence: with hematuria Qualified Code(s): N39.0 - Urinary tract infection, site not specified; R31.9 - Hematuria, unspecified (2) Diabetes mellitus type 2 in obese Priority: Secondary Status: Chronic (3) Morbid obesity with BMI of 60.0-69.9, adult Priority: Secondary Status: Chronic (4) DVT prophylaxis Priority: Secondary Status: Acute (5) Elevated troponin I level Priority: Primary Status: Acute (6) CKD (chronic kidney disease) Priority: Secondary Status: Chronic Qualifiers: Chronic kidney disease stage: stage 3 (moderate) Qualified Code(s): N18.3 - Chronic kidney disease, stage 3 (moderate) (7) COPD (chronic obstructive pulmonary disease) Priority: Secondary Status: Chronic Qualifiers: COPD type: unspecified COPD Qualified Code(s): J44.9 - Chronic obstructive pulmonary disease, unspecified (8) History of congestive heart failure Priority: Secondary Status: Chronic (9) Demand ischemia of myocardium Priority: Secondary Status: Acute (10) Severe sepsis Priority: Primary Status: Acute Hospital course: Ms. Smart is a 68 year old female past medical history of COPD, diabetes, hypertension, hyperlipidemia, morbidly obese and bedbound came in with complain of fevers chills and flulike symptoms associated with shortness of breath. She was found to have signs of urinary tract infection and sepsis. She was started on ceftriaxone. Patient's one out of 2 blood cultures also came positive for enterococcus. Patient was started on ampicillin the risk of allergy in mind documented past which patient was not completely able to recall. Patient tolerated ampicillin well. Patient was seen by cardiology for elevated troponin after being started on heparin drip. Patient was deemed to have demand ischemia related to her infection. Heparin drip was stopped. Echocardiogram was obtained which was of poor quality but showed preserved ejection fraction. Patient was also elevated by infectious disease who recommended Augmentin for 14 days. Patient otherwise hemodynamically stable to be discharged home to finish antibiotic course. Home health referral was made on discharge. Patient to continue all her other home medications. Discharge discussed with: patient, family, nurse, social work - Time Spent with Patient Total time spent providing and/or coordinating discharge services: Time spent: Greater than 30 minutes (40) - Discharge Medications Prescriptions: New Amoxicillin/Clavulanate [Augmentin] 875 mg PO BIDWM 14 Days #28 tablet Continue Omeprazole [PriLOSEC] 20 mg PO DAILY Allopurinol [Zyloprim 100 MG] 100 mg PO DAILY Metoprolol [Lopressor] 25 mg PO BID Buspirone HCl [Buspar] 15 mg PO BID Vitamin B Complex [B Complex] 1 tab PO DAILY Potassium Chloride [Klor-Con Sprinkle] 8 meq PO DAILY Insulin ASPART [Novolog] 0 unit SQ TIDWM Gabapentin [Neurontin] 600 mg PO BID Cholecalciferol (Vitamin D3) [Vitamin D3] 2,000 unit PO DAILY Loratadine [Claritin] 10 mg PO DAILY Docusate [Colace] 300 mg PO DAILY DiphenhydraMINE [Benadryl] 25 mg PO Q6HR PRN PRN Reason: Itching Aspirin 81 mg PO DAILY Albuterol Neb [Proventil Neb] 2.5 mg IH Q4H PRN #1 inhsol PRN Reason: Shortness Of Breath/Wheezing Nystatin POWDER [Nystop] 1 appl TP BID #3 bottle Atorvastatin Calcium [Lipitor] 80 mg PO HS Levothyroxine Sodium [Synthroid] 200 mcg PO DAILY raNITIdine HCl [Zantac] 150 mg PO BID PRN PRN Reason: acid reflux Insulin DETEMIR [Levemir] 100 unit SQ BID #10 mls Furosemide [Lasix] 40 mg PO BID #40 Multivitamin [Daily Multiple Vitamin] 1 each PO DAILY Trazodone HCl 100 mg PO HS Escitalopram [Lexapro] 20 mg PO DAILY Lisinopril [Zestril] 40 mg PO DAILY Home Medications: Allopurinol [Zyloprim 100 MG] 100 mg PO DAILY 09/27/15 [History] Buspirone HCl [Buspar] 15 mg PO BID 09/27/15 [History] Cholecalciferol (Vitamin D3) [Vitamin D3] 2,000 unit PO DAILY 09/27/15 [History] Gabapentin [Neurontin] 600 mg PO BID 09/27/15 [History] Insulin ASPART [Novolog] 0 unit SQ TIDWM 09/27/15 [History] Metoprolol [Lopressor] 25 mg PO BID 09/27/15 [History] Omeprazole [PriLOSEC] 20 mg PO DAILY 09/27/15 [History] Potassium Chloride [Klor-Con Sprinkle] 8 meq PO DAILY 09/27/15 [History] Vitamin B Complex [B Complex] 1 tab PO DAILY 09/27/15 [History] Aspirin 81 mg PO DAILY 04/09/16 [History] DiphenhydraMINE [Benadryl] 25 mg PO Q6HR PRN 04/09/16 [History] Docusate [Colace] 300 mg PO DAILY 04/09/16 [History] Loratadine [Claritin] 10 mg PO DAILY 04/09/16 [History] Albuterol Neb [Proventil Neb] 2.5 mg IH Q4H PRN #1 inhsol 04/11/16 [Rx] Nystatin POWDER [Nystop] 1 appl TP BID #3 bottle 04/11/16 [Rx] Atorvastatin Calcium [Lipitor] 80 mg PO HS 02/01/18 [History] Levothyroxine Sodium [Synthroid] 200 mcg PO DAILY 02/01/18 [History] raNITIdine HCl [Zantac] 150 mg PO BID PRN 02/01/18 [History] Insulin DETEMIR [Levemir] 100 unit SQ BID #10 mls 04/05/18 [Rx] Furosemide [Lasix] 40 mg PO BID #40 07/08/18 [Rx] Escitalopram [Lexapro] 20 mg PO DAILY 11/13/18 [History] Lisinopril [Zestril] 40 mg PO DAILY 11/13/18 [History] Multivitamin [Daily Multiple Vitamin] 1 each PO DAILY 11/13/18 [History] Trazodone HCl 100 mg PO HS 11/13/18 [History] Amoxicillin/Clavulanate [Augmentin] 875 mg PO BIDWM 14 Days #28 tablet 11/16/18 [Rx] Allergies/Adverse Reactions: Allergy/AdvReac Type Severity Reaction Status Date / Time adhesive tape Allergy Rash Verified 11/13/18 04:20 codeine Allergy Hives Verified 11/13/18 04:20 hydromorphone [From Dilaudid] Allergy Itching Verified 11/13/18 12:29 Penicillins Allergy Rash Verified 11/13/18 04:20 Sulfa (Sulfonamide Allergy Rash Verified 11/13/18 04:20 Antibiotics) Date of admission: 11/13/18 08:13 Primary care physician: PCP NONE Consults: 11/13/18 11:07 Consult to Nutrition [CONS] Routine Comment: Consulting Provider: NUTRITION Reason for Dietary Consult: MST Score 11/13/18 20:16 Consult to Cardiology [CONS] Routine Comment: Consulting Provider: Cardiology [place] Reason for Consult: elevated troponin Call Completed: No 11/14/18 11:16 Consult to Infectious Diseases [CONS] Routine Consulting Provider: Infectious Disease [place] Reason for Consult: enterococcal bacteremia Call Completed: No Discharging clinician: Adriana Randolph - Constitutional Vitals: Temp Pulse Resp BP Pulse Ox 98.4 F 65 16 163/65 94 11/16/18 07:59 11/16/18 07:59 11/16/18 03:54 11/16/18 07:59 11/16/18 07:59 Exam: Constitutional: Vitals as noted. Conversant. Morbid obesity and bedbound Respiratory : Clear to auscultation bilaterally however distant sounds difficult to appreciate due to body habitus. No accessory muscle use, rales, rhonchi or wheezes Cardiovascular : RRR, +S1, +S2. no murmur, gallop, rubs GI/Abdominal : Soft, Non-tender, Non-distended. Musculoskeletal: no deformity noted. trace edema or cyanosis. no calf tenderness. Neurological: AO X3, CN II-XII grossly intact, grossly normal motor and sensory exam. Skin: skin excoriation on abdomen. Could not examine patient's back is a morbid obesity. - Patient Status Disposition: Home Health Service Condition: Fair - Discharge Instructions Follow Up With: NONE,PCP [Primary Care Provider] - - Diet and Activity Activity: as per physical therapy
--- NOTE | 2018-11-16 11:09 | Physician Discharge Referral ---
Home Health/Hosp Referral Info Transfer to: Home Health - Diagnosis (1) Urinary tract infection Status: Acute (2) Diabetes mellitus type 2 in obese Status: Chronic (3) Morbid obesity with BMI of 60.0-69.9, adult Status: Chronic (4) DVT prophylaxis Status: Acute (5) Elevated troponin I level Status: Acute (6) CKD (chronic kidney disease) Status: Chronic (7) COPD (chronic obstructive pulmonary disease) Status: Chronic (8) History of congestive heart failure Status: Chronic (9) Demand ischemia of myocardium Status: Acute (10) Severe sepsis Status: Acute - Respiratory Orders Smoking Cessation: Smoking cessation has been advised. For more information, call the [place] Tobacco Quit Line at 6-738-WFBE-NOW. - Services Needed Following services are medically necessary services: Nursing, Home Health Aide, Physical Therapy, Occupational Therapy - Transfer Medications Prescriptions: Amoxicillin/Clavulanate [Augmentin] 875 mg PO BIDWM 14 Days #28 tablet Home Medications: Allopurinol [Zyloprim 100 MG] 100 mg PO DAILY 09/27/15 [History] Buspirone HCl [Buspar] 15 mg PO BID 09/27/15 [History] Cholecalciferol (Vitamin D3) [Vitamin D3] 2,000 unit PO DAILY 09/27/15 [History] Gabapentin [Neurontin] 600 mg PO BID 09/27/15 [History] Insulin ASPART [Novolog] 0 unit SQ TIDWM 09/27/15 [History] Metoprolol [Lopressor] 25 mg PO BID 09/27/15 [History] Omeprazole [PriLOSEC] 20 mg PO DAILY 09/27/15 [History] Potassium Chloride [Klor-Con Sprinkle] 8 meq PO DAILY 09/27/15 [History] Vitamin B Complex [B Complex] 1 tab PO DAILY 09/27/15 [History] Aspirin 81 mg PO DAILY 04/09/16 [History] DiphenhydraMINE [Benadryl] 25 mg PO Q6HR PRN 04/09/16 [History] Docusate [Colace] 300 mg PO DAILY 04/09/16 [History] Loratadine [Claritin] 10 mg PO DAILY 04/09/16 [History] Albuterol Neb [Proventil Neb] 2.5 mg IH Q4H PRN #1 inhsol 04/11/16 [Rx] Nystatin POWDER [Nystop] 1 appl TP BID #3 bottle 04/11/16 [Rx] Atorvastatin Calcium [Lipitor] 80 mg PO HS 02/01/18 [History] Levothyroxine Sodium [Synthroid] 200 mcg PO DAILY 02/01/18 [History] raNITIdine HCl [Zantac] 150 mg PO BID PRN 02/01/18 [History] Insulin DETEMIR [Levemir] 100 unit SQ BID #10 mls 04/05/18 [Rx] Furosemide [Lasix] 40 mg PO BID #40 07/08/18 [Rx] Escitalopram [Lexapro] 20 mg PO DAILY 11/13/18 [History] Lisinopril [Zestril] 40 mg PO DAILY 11/13/18 [History] Multivitamin [Daily Multiple Vitamin] 1 each PO DAILY 11/13/18 [History] Trazodone HCl 100 mg PO HS 11/13/18 [History] Amoxicillin/Clavulanate [Augmentin] 875 mg PO BIDWM 14 Days #28 tablet 11/16/18 [Rx] Allergies/Adverse Reactions: Allergy/AdvReac Type Severity Reaction Status Date / Time adhesive tape Allergy Rash Verified 11/13/18 04:20 codeine Allergy Hives Verified 11/13/18 04:20 hydromorphone [From Dilaudid] Allergy Itching Verified 11/13/18 12:29 Penicillins Allergy Rash Verified 11/13/18 04:20 Sulfa (Sulfonamide Allergy Rash Verified 11/13/18 04:20 Antibiotics) Certification: Further, I certify that my clinical findings support that this patient is homebound (i.e. absences from home require considerable and taxing effort and are for medical reasons or scientologist services or infrequently or short duration when for other reasons) because: Homebound Reason: Patient requires assistance of a person or device to safely leave home Attestation: My signature below is to certify that this patient is under my care and that I, or nurse practitioner, or a physician's resident assistant working with me, has a [id number] encounter with this patient.
[2018-11-16] MEDS: Lisinopril 20 MG TABLET PO SCH (13:18)
[2018-11-16 15:44] VITALS: BP 143/55
== END 2018-11-16 16:14 | disposition home health service (06) | DRG 872 ==
LOC: EMEROOARM 04:05 → 2NENU 04:05 → SUATTDRO 06:28 → 2NENU 10:31
PROVIDERS: ADMIT Pediatrics; ATTEND Internal Medicine

== ENCOUNTER 2019-07-29 15:09 | Observation (INO) ==
[2019-07-29] MEDS ORDERED: 0.9 % Sodium Chloride 1,000 ML IVC ONE (15:19)
[2019-07-29 16:16] LABS: Basophils % 0.4 %; Eosinophils # 0.3 K/mcL (0.0-0.6); Eosinophils % 4.2 %; Hematocrit 31.5 % (35.3-44.9); Hemoglobin 9.8 g/dL (11.5-15.4); Immature Granulocytes % 0.3 % (0-4); Lymphocytes # 2.4 K/mcL (0.6-4.6); Lymphocytes % 34.3 %; Mean Corpuscular HGB Conc 31.1 g/dL (31.6-35.5); Mean Corpuscular Hemoglobin 28.7 pg (28.0-33.3); Mean Corpuscular Volume 92.4 fL (83.0-100.0); Mean Platelet Volume 10.8 fL (9.4-12.4); Monocytes # 0.5 K/mcL (0.0-1.3); Monocytes % 6.8 %; Neutrophils # 3.7 K/mcL (1.6-8.9); Platelet Count 146 K/mcL (140-400); Red Blood Count 3.41 M/mcL (3.82-4.97); Red Cell Distribution Width 14.1 % (11.5-14.5); White Blood Count 6.9 K/mcL (4.3-11.1)
[2019-07-29 16:27] LABS: Alanine Aminotransferase 12 Units/L (7-52); Albumin 3.1 g/dL (3.5-5.7); Albumin/Globulin Ratio 1.1 (1.1-2.2); Alkaline Phosphatase 96 Units/L (34-104); Aspartate Amino Transferase 10 Units/L (13-39); BUN/Creatinine Ratio 16 (6-26); Bilirubin,Total 0.3 mg/dL (0.3-1.0); Blood Urea Nitrogen 34 mg/dL (8-23); Calcium 8.5 mg/dL (8.6-10.3); Carbon Dioxide 35 mEq/L (23-29); Chloride 93 mEq/L (98-107); Globulin 2.7 g/dL (2.4-3.5); Glucose 446 mg/dL (70-105); Osmolality,Calculated 305 (280-300); Potassium 3.6 mEq/L (3.5-5.1); Sodium 134 mEq/L (136-145); Total Protein 5.8 g/dL (6.4-8.9); Troponin I < 0.03 ng/mL (< 0.04); eGFR For African Americans 27 (> 60); eGFR For Non-African Americans 23 (> 60)
[2019-07-29 16:52] LABS: Bilirubin,Urine Negative (Negative); Blood,Urine Moderate (Negative); Clarity,Urine Clear (Clear); Color,Urine Yellow (Yellow); Glucose,Urine (UA) 500 mg/dL (Normal); Ketones,Urine Negative (Negative); Leukocyte Esterase,Urine Negative (Negative); Nitrite,Urine Negative (Negative); PH,Urine 5.5 pH Units (5.0-8.0); Protein,Urine Negative (Neg-Trace); Specific Gravity,Urine <= 1.005 (1.010-1.025); Urobilinogen,Urine Normal (Normal)
[2019-07-29 16:53] LABS: RBC,Urine 0-3 per hpf (0-3); Squamous Epithelial Cell,Urine Few per lpf (None-Few)
[2019-07-29 16:54] LABS: Yeast,Urine Few per hpf (None Seen)
[2019-07-29] MEDS ORDERED: cefTRIAXone 1,000 MG in 0.9 % Sodium Chloride Mini Bag 100 ML IVPB ONE (18:01)
[2019-07-29] MEDS ORDERED: Azithromycin 500 MG in 0.9 % Sodium Chloride 250 ML IVPB ONE (18:01)
[2019-07-29] MEDS ORDERED: cefTRIAXone 1,000 MG in Water for inj. (sterile) 10 ML IVP ONE (18:30)
[2019-07-29] MEDS ORDERED: Acetaminophen 325 MG TABLET PO PRN (23:38)
[2019-07-29] MEDS ORDERED: Naloxone 0.4 MG/ML INJ IVP PRN (23:38)
[2019-07-29] MEDS ORDERED: Ondansetron ODT 4 MG TAB.RAPDIS SL PRN (23:38)
[2019-07-29] MEDS ORDERED: Dextrose Gel 15 GM/37.5 ML TUBE PO PRN ×2 (23:44)
[2019-07-29] MEDS ORDERED: D5% in Water 1,000 ML IVC PRN (23:44)
[2019-07-29] MEDS ORDERED: *HR* Dextrose 50 % in Water (Syg) 50 ML SYRINGE IVP PRN (23:44)
[2019-07-30] MEDS: Insulin DETEMIR 100 UNIT/ML X5UNITS SQ SCH ×3 (01:00→22:49)
[2019-07-30] MEDS ORDERED: Albuterol 2.5 MG/3 ML NEBULIZER IH PRN (01:13)
[2019-07-30 01:23] LABS: Basophils % 0.5 %; Eosinophils # 0.3 K/mcL (0.0-0.6); Hematocrit 32.9 % (35.3-44.9); Hemoglobin 10.5 g/dL (11.5-15.4); Immature Granulocytes % 0.2 % (0-4); Lymphocytes # 2.3 K/mcL (0.6-4.6); Lymphocytes % 39.6 %; Mean Corpuscular HGB Conc 31.9 g/dL (31.6-35.5); Mean Corpuscular Hemoglobin 28.6 pg (28.0-33.3); Mean Corpuscular Volume 89.6 fL (83.0-100.0); Monocytes # 0.4 K/mcL (0.0-1.3); Monocytes % 6.2 %; Neutrophils # 2.8 K/mcL (1.6-8.9); Platelet Count 156 K/mcL (140-400); Red Blood Count 3.67 M/mcL (3.82-4.97); Segmented Neutrophils % 48.5 %; White Blood Count 5.8 K/mcL (4.3-11.1)
[2019-07-30 01:30] LABS: Magnesium 1.3 mg/dL (1.6-2.6); Phosphorous 2.7 mg/dL (2.7-4.5)
[2019-07-30 01:32] LABS: Calcium 8.6 mg/dL (8.6-10.3); Potassium 3.5 mEq/L (3.5-5.1)
[2019-07-30] MEDS: *HR* Heparin 5,000 UNIT/ML VIAL SQ SCH ×3 (06:29→22:48)
[2019-07-30 07:56] LABS: Estimated Average Glucose 312 mg/dl
[2019-07-30] MEDS: Aspirin 81 MG TAB.CHEW PO SCH (08:25)
[2019-07-30] MEDS: Gabapentin 300 MG CAPSULE PO SCH ×2 (08:25→22:49)
[2019-07-30] MEDS: Insulin LISPRO 300 UNITS/3 ML VIAL SQ SCH ×3 (08:25→20:02)
[2019-07-30] MEDS ORDERED: Furosemide 40 MG TABLET PO SCH (09:00)
[2019-07-30] MEDS ORDERED: Insulin LISPRO 300 UNITS/3 ML VIAL SQ ONE (16:00)
[2019-07-30] MEDS ORDERED: Azithromycin 500 MG in 0.9 % Sodium Chloride 250 ML IVPB SCH (16:00)
[2019-07-30] MEDS: cefTRIAXone 1,000 MG in Water for inj. (sterile) 10 ML IVP SCH (20:01)
[2019-07-30] MEDS ORDERED: traZODone 50 MG TABLET PO SCH (21:00)
[2019-07-30] MEDS ORDERED: BUSPIRONE HCL 15 MG PO SCH (21:00)
[2019-07-30] MEDS ORDERED: Saline Nasal Spray 44 ML BOTTLE NS PRN (23:22)
[2019-07-31] MEDS: *HR* Heparin 5,000 UNIT/ML VIAL SQ SCH ×2 (05:29→12:03)
[2019-07-31 06:26] LABS: Calcium 8.8 mg/dL (8.6-10.3); Potassium 3.6 mEq/L (3.5-5.1)
[2019-07-31] MEDS: cefTRIAXone 1,000 MG in Water for inj. (sterile) 10 ML IVP SCH (08:20)
[2019-07-31] MEDS: Gabapentin 300 MG CAPSULE PO SCH (08:20)
[2019-07-31] MEDS: Insulin DETEMIR 100 UNIT/ML X5UNITS SQ SCH (08:21)
[2019-07-31] MEDS: Aspirin 81 MG TAB.CHEW PO SCH (08:21)
[2019-07-31] MEDS: Insulin LISPRO 300 UNITS/3 ML VIAL SQ SCH ×2 (08:23→12:03)
[2019-07-31] MEDS ORDERED: NON-FORMULARY MEDICATION 1 EACH EACH (Levothyroxine Sodium [Euthyrox] 200 MCG) PO SCH (09:00)
[2019-07-31 11:57] VITALS: BP 122/52
== END 2019-07-31 13:39 | disposition home health service (06) ==
LOC: 2NENU 15:09 → EMEROOARM 15:09 → 2NENU 21:26
PROVIDERS: ADMIT Family Medicine; ATTEND Family Medicine

== ENCOUNTER 2020-06-15 11:36 | Inpatient (IN) ==
[2020-06-15] MEDS ORDERED: Ondansetron 4 MG/2 ML VIAL IVP ONE (11:48)
[2020-06-15 11:59] LABS: Basophils # 0.1 K/mcL (0.0-0.2); Basophils % 0.8 %; Eosinophils # 0.8 K/mcL (0.0-0.6); Eosinophils % 9.7 %; Hematocrit 34.5 % (35.3-44.9); Hemoglobin 10.1 g/dL (11.5-15.4); Immature Granulocytes % 3.9 % (0-4); Lymphocytes # 1.6 K/mcL (0.6-4.6); Lymphocytes % 20.4 %; Mean Corpuscular HGB Conc 29.3 g/dL (31.6-35.5); Mean Corpuscular Hemoglobin 27.4 pg (28.0-33.3); Mean Corpuscular Volume 93.8 fL (83.0-100.0); Mean Platelet Volume 9.4 fL (9.4-12.4); Monocytes # 0.4 K/mcL (0.0-1.3); Monocytes % 4.8 %; Neutrophils # 4.8 K/mcL (1.6-8.9); Nucleated Red Blood Cells 0.3 /100 WBC (0); Platelet Count 179 K/mcL (140-400); Red Blood Count 3.68 M/mcL (3.82-4.97); Red Cell Distribution Width 13.9 % (11.5-14.5); Segmented Neutrophils % 60.4 %; White Blood Count 7.9 K/mcL (4.3-11.1)
[2020-06-15 12:34] LABS: Calcium 9.2 mg/dL (8.6-10.3); Potassium 3.9 mEq/L (3.5-5.1); Troponin I 0.04 ng/mL (< 0.04)
[2020-06-15 12:43] LABS: Bacteria,Urine Few per hpf (None-Few); Bilirubin,Urine Negative (Negative); Blood,Urine Moderate (Negative); Clarity,Urine Clear (Clear); Color,Urine Light-Yellow (Yellow); Glucose,Urine (UA) 500 mg/dL (Normal); Hyaline Casts,Urine Few per lpf (None Seen); Ketones,Urine Negative (Negative); Leukocyte Esterase,Urine Negative (Negative); Nitrite,Urine Negative (Negative); PH,Urine 5.5 pH Units (5.0-8.0); Protein,Urine 100 mg/dL (Neg-Trace); RBC,Urine 15-30 per hpf (0-3); Specific Gravity,Urine 1.011 (1.010-1.025); Squamous Epithelial Cell,Urine Few per hpf (None-Few); Urobilinogen,Urine Normal (Normal); WBC,Urine 0-3 per hpf (0-3)
[2020-06-15] MEDS ORDERED: Furosemide 40 MG/4 ML VIAL IVP ONE (13:26)
[2020-06-15] MEDS ORDERED: Nitroglycerin 0.4 MG TAB.SUBL SL STA (13:26)
[2020-06-15 14:12] LABS: ABG Base Excess 12 mEq/L (-2 to 3); ABG HCO3 45 mEq/L (21-27); ABG Oxygen Saturation 85 % (95-98); ABG PCO2 129 mmHg (35-45); ABG PH 7.15 pH Units (7.32-7.45); ABG PO2 69 mmHg (85-104); ABG TCO2 49 mEq/L (20-26); Blood Gas VT 500 cc
[2020-06-15] MEDS ORDERED: Naloxone 0.4 MG/ML INJ IVP PRN (14:24)
[2020-06-15] MEDS ORDERED: D5% in Water 1,000 ML IVC PRN (14:26)
[2020-06-15] MEDS ORDERED: Dextrose Gel 15 GM/37.5 ML TUBE PO PRN (14:26)
[2020-06-15] MEDS ORDERED: *HR* Dextrose 50 % in Water (Vial) 50 ML VIAL IVP PRN (14:26)
[2020-06-15] MEDS ORDERED: *HR* Metoprolol 5 MG/5 ML VIAL IVP PRN (14:36)
[2020-06-15] MEDS ORDERED: methylPREDNISolone 125 MG/2 ML VIAL IVP STA (14:55)
[2020-06-15 15:34] LABS: ABG Base Excess 12 mEq/L (-2 to 3); ABG HCO3 46 mEq/L (21-27); ABG Oxygen Saturation 86 % (95-98); ABG PCO2 135 mmHg (35-45); ABG PH 7.14 pH Units (7.32-7.45); ABG PO2 74 mmHg (85-104); ABG TCO2 50 mEq/L (20-26); Blood Gas VT 500 cc
[2020-06-15] MEDS: Ipratropium/Albuterol Neb 3 ML IH SCH ×4 (15:42→23:45)
[2020-06-15] MEDS ORDERED: Ipratropium/Albuterol Neb 3 ML IH SCH (16:00)
[2020-06-15] MEDS: Doxycycline 100 MG in 0.9 % Sodium Chloride Mini Bag 100 ML IVPB SCH (18:07)
[2020-06-15] MEDS: Cefepime HCl 2,000 MG in Water for inj. (sterile) 20 ML IVP SCH (18:08)
[2020-06-15] MEDS: Insulin LISPRO 300 UNITS/3 ML VIAL SQ SCH (18:12)
[2020-06-15] MEDS ORDERED: 0.9 % Sodium Chloride 1,000 ML ONE (20:21)
[2020-06-15 20:24] LABS: ABG Base Excess 9 mEq/L (-2 to 3); ABG HCO3 44 mEq/L (21-27); ABG Oxygen Saturation 95 % (95-98); ABG PCO2 143 mmHg (35-45); ABG PH 7.09 pH Units (7.32-7.45); ABG PO2 111 mmHg (85-104); ABG TCO2 48 mEq/L (20-26); Blood Gas VT 550 cc
[2020-06-15] MEDS ORDERED: *HR* Propofol 200 MG/20 ML VIAL IVP ONE (21:00)
[2020-06-15] MEDS ORDERED: Furosemide 40 MG/4 ML VIAL IVP SCH (21:00)
[2020-06-15] MEDS ORDERED: *HR* Succinylcholine 200 MG/10 ML VIAL IVP ONE (21:00)
[2020-06-15] MEDS ORDERED: Artificial Tears SOLN 15 ML BOTTLE BOTH EYES PRN (21:04)
[2020-06-15] MEDS: FentaNYL (PF) 1,000 MCG/100 ML IV.SOLN IVC SCH (21:22)
[2020-06-15 22:33] LABS: ABG Base Excess 10 mEq/L (-2 to 3); ABG HCO3 39 mEq/L (21-27); ABG Oxygen Saturation 90 % (95-98); ABG PCO2 69 mmHg (35-45); ABG PH 7.36 pH Units (7.32-7.45); ABG PO2 65 mmHg (85-104); ABG TCO2 41 mEq/L (20-26); Blood Gas VT 500 cc
[2020-06-15] MEDS: Nystatin POWDER 30 GM BOTTLE TP SCH (23:09)
[2020-06-15] MEDS: *HR* Heparin 5,000 UNIT/ML VIAL SQ SCH (23:10)
[2020-06-16] MEDS: Insulin LISPRO 300 UNITS/3 ML VIAL SQ SCH ×5 (00:38→23:59)
[2020-06-16] MEDS: MethylPREDNISolone 40 MG/ML VIAL IVP SCH ×3 (00:48→16:15)
[2020-06-16] MEDS: Artificial Tears SOLN 15 ML BOTTLE BOTH EYES SCH ×7 (00:48→23:54)
[2020-06-16 01:15] LABS: Basophils % 0.6 %; Eosinophils # 0.1 K/mcL (0.0-0.6); Eosinophils % 1.1 %; Hematocrit 33.8 % (35.3-44.9); Immature Granulocytes % 3.6 % (0-4); Lymphocytes % 16.3 %; Mean Corpuscular HGB Conc 29.6 g/dL (31.6-35.5); Mean Corpuscular Hemoglobin 27.4 pg (28.0-33.3); Mean Corpuscular Volume 92.6 fL (83.0-100.0); Mean Platelet Volume 9.6 fL (9.4-12.4); Monocytes # 0.1 K/mcL (0.0-1.3); Neutrophils # 4.9 K/mcL (1.6-8.9); Platelet Count 174 K/mcL (140-400); Red Blood Count 3.65 M/mcL (3.82-4.97); Red Cell Distribution Width 13.8 % (11.5-14.5); Segmented Neutrophils % 76.4 %; White Blood Count 6.4 K/mcL (4.3-11.1)
[2020-06-16 01:33] LABS: Calcium 9.3 mg/dL (8.6-10.3); Potassium 4.4 mEq/L (3.5-5.1)
[2020-06-16] MEDS: FentaNYL (PF) 1,000 MCG/100 ML IV.SOLN IVC SCH ×3 (02:52→18:10)
[2020-06-16] MEDS: Ipratropium/Albuterol Neb 3 ML IH SCH ×6 (03:59→23:54)
[2020-06-16 04:39] LABS: ABG Base Excess 16 mEq/L (-2 to 3); ABG HCO3 41 mEq/L (21-27); ABG Oxygen Saturation 93 % (95-98); ABG PCO2 50 mmHg (35-45); ABG PH 7.52 pH Units (7.32-7.45); ABG PO2 61 mmHg (85-104); ABG TCO2 42 mEq/L (20-26); Blood Gas VT 500 cc
[2020-06-16] MEDS: Doxycycline 100 MG in 0.9 % Sodium Chloride Mini Bag 100 ML IVPB SCH ×2 (05:28→17:39)
[2020-06-16] MEDS: *HR* Heparin 5,000 UNIT/ML VIAL SQ SCH ×3 (05:29→21:18)
[2020-06-16] MEDS: Cefepime HCl 2,000 MG in Water for inj. (sterile) 20 ML IVP SCH ×2 (05:30→17:39)
[2020-06-16] MEDS: Pantoprazole 40 MG VIAL IVP SCH ×2 (05:30→17:39)
[2020-06-16] MEDS: Sucralfate 1 GM TABLET PO SCH ×2 (08:46→16:17)
[2020-06-16] MEDS: Aspirin 81 MG TAB.CHEW PO SCH (08:47)
[2020-06-16] MEDS: Chlorhexidine Rinse 15 ML MOUTHWASH MM SCH ×2 (08:47→19:57)
[2020-06-16] MEDS: Nystatin POWDER 30 GM BOTTLE TP SCH ×2 (08:48→19:56)
[2020-06-16] MEDS: lisinopriL 20 MG TABLET PO SCH (08:48)
[2020-06-16] MEDS ORDERED: Pantoprazole 40 MG VIAL IVP SCH (09:00)
[2020-06-16] MEDS ORDERED: Insulin DETEMIR 100 UNIT/ML X5UNITS SQ SCH ×2 (18:17→18:30)
[2020-06-16] MEDS ORDERED: Insulin LISPRO 300 UNITS/3 ML VIAL SQ SCH (18:18)
[2020-06-17] MEDS: FentaNYL (PF) 1,000 MCG/100 ML IV.SOLN IVC SCH (02:50)
[2020-06-17] MEDS: Ipratropium/Albuterol Neb 3 ML IH SCH ×6 (03:38→23:40)
[2020-06-17] MEDS: Insulin LISPRO 300 UNITS/3 ML VIAL SQ SCH ×5 (04:11→21:27)
[2020-06-17] MEDS: Pantoprazole 40 MG VIAL IVP SCH ×2 (04:11→20:24)
[2020-06-17] MEDS: Artificial Tears SOLN 15 ML BOTTLE BOTH EYES SCH ×6 (04:11→23:36)
[2020-06-17] MEDS: *HR* Heparin 5,000 UNIT/ML VIAL SQ SCH ×3 (04:11→20:25)
[2020-06-17] MEDS: Cefepime HCl 2,000 MG in Water for inj. (sterile) 20 ML IVP SCH ×2 (04:11→17:56)
[2020-06-17] MEDS: Doxycycline 100 MG in 0.9 % Sodium Chloride Mini Bag 100 ML IVPB SCH ×2 (04:12→17:57)
[2020-06-17 04:14] LABS: Basophils % 0.2 %; Eosinophils % 0.2 %; Hematocrit 27.4 % (35.3-44.9); Immature Granulocytes % 1.4 % (0-4); Lymphocytes # 1.3 K/mcL (0.6-4.6); Lymphocytes % 19.5 %; Mean Corpuscular HGB Conc 30.7 g/dL (31.6-35.5); Mean Corpuscular Hemoglobin 27.9 pg (28.0-33.3); Mean Platelet Volume 9.7 fL (9.4-12.4); Monocytes # 0.5 K/mcL (0.0-1.3); Monocytes % 7.2 %; Neutrophils # 4.8 K/mcL (1.6-8.9); Platelet Count 158 K/mcL (140-400); Red Blood Count 3.01 M/mcL (3.82-4.97); Red Cell Distribution Width 14.2 % (11.5-14.5); Segmented Neutrophils % 71.5 %; White Blood Count 6.7 K/mcL (4.3-11.1)
[2020-06-17 04:16] LABS: Hemoglobin 8.4 g/dL (11.5-15.4)
[2020-06-17 04:38] LABS: Albumin 2.9 g/dL (3.5-5.7); Albumin/Globulin Ratio 1.1 (1.1-2.2); Bilirubin,Total 0.3 mg/dL (0.3-1.0); Calcium 8.7 mg/dL (8.6-10.3); Globulin 2.7 g/dL (2.4-3.5); Magnesium 1.3 mg/dL (1.6-2.6); Phosphorous 1.8 mg/dL (2.7-4.5); Potassium 3.5 mEq/L (3.5-5.1); Total Protein 5.6 g/dL (6.4-8.9)
[2020-06-17 04:43] LABS: ABG Base Excess 18 mEq/L (-2 to 3); ABG HCO3 42 mEq/L (21-27); ABG Oxygen Saturation 97 % (95-98); ABG PCO2 53 mmHg (35-45); ABG PH 7.51 pH Units (7.32-7.45); ABG PO2 80 mmHg (85-104); ABG TCO2 44 mEq/L (20-26); Blood Gas VT 500 cc
[2020-06-17 04:47] LABS: VBG Ionized Calcium 1.08 mmol/L (1.15-1.35)
[2020-06-17] MEDS: Potassium Phosphate 44 MEQ in 0.9 % Sodium Chloride 250 ML IVPB PRN (05:37)
[2020-06-17] MEDS: Sucralfate 1 GM TABLET PO SCH ×3 (05:38→16:45)
[2020-06-17] MEDS: Insulin DETEMIR 100 UNIT/ML X5UNITS SQ SCH ×2 (08:44→21:28)
[2020-06-17] MEDS ORDERED: MethylPREDNISolone 40 MG/ML VIAL IVP SCH (09:00)
[2020-06-17] MEDS ORDERED: Insulin DETEMIR 100 UNIT/ML X5UNITS SQ SCH (09:00)
[2020-06-17] MEDS ORDERED: Dexmedetomidine HCl 400 MCG/100 ML MLS IVC ONE (09:19)
[2020-06-17] MEDS: Dexmedetomidine HCl 400 MCG/100 ML MLS IVC SCH ×2 (09:30→14:55)
[2020-06-17] MEDS: lisinopriL 20 MG TABLET PO SCH (10:09)
[2020-06-17] MEDS: Aspirin 81 MG TAB.CHEW PO SCH (10:09)
[2020-06-17] MEDS: Chlorhexidine Rinse 15 ML MOUTHWASH MM SCH ×2 (10:10→20:24)
[2020-06-17] MEDS: Nystatin POWDER 30 GM BOTTLE TP SCH ×2 (10:10→20:25)
[2020-06-17] MEDS ORDERED: *HR* LORazepam 0.5 MG TABLET PO PRN (11:26)
[2020-06-17 17:13] LABS: Magnesium 1.4 mg/dL (1.6-2.6)
[2020-06-17] MEDS: Dextrose Gel 15 GM/37.5 ML TUBE PO PRN (23:36)
[2020-06-18] MEDS: Dextrose Gel 15 GM/37.5 ML TUBE PO PRN ×2 (00:10→00:43)
[2020-06-18] MEDS: Insulin LISPRO 300 UNITS/3 ML VIAL SQ SCH ×7 (00:17→23:46)
[2020-06-18] MEDS ORDERED: Dextrose Gel 15 GM/37.5 ML TUBE PO ONE (00:42)
[2020-06-18] MEDS ORDERED: 0.9 % Sodium Chloride 500 ML IVC ONE (02:04)
[2020-06-18] MEDS: Artificial Tears SOLN 15 ML BOTTLE BOTH EYES SCH ×6 (04:02→23:46)
[2020-06-18] MEDS: Ipratropium/Albuterol Neb 3 ML IH SCH ×5 (04:10→19:31)
[2020-06-18] MEDS ORDERED: Albumin 25% 25gram/100mL 25 GM/100 ML IV.SOLN IVPB ONE (05:01)
[2020-06-18 05:26] LABS: ABG Base Excess 20 mEq/L (-2 to 3); ABG HCO3 49 mEq/L (21-27); ABG Oxygen Saturation 95 % (95-98); ABG PCO2 88 mmHg (35-45); ABG PH 7.36 pH Units (7.32-7.45); ABG PO2 83 mmHg (85-104); ABG TCO2 > 50 mEq/L (20-26)
[2020-06-18] MEDS: Cefepime HCl 2,000 MG in Water for inj. (sterile) 20 ML IVP SCH ×2 (05:29→16:44)
[2020-06-18] MEDS: Pantoprazole 40 MG VIAL IVP SCH ×2 (05:30→16:51)
[2020-06-18] MEDS: *HR* Heparin 5,000 UNIT/ML VIAL SQ SCH ×3 (05:30→20:39)
[2020-06-18] MEDS: Doxycycline 100 MG in 0.9 % Sodium Chloride Mini Bag 100 ML IVPB SCH ×2 (05:31→16:40)
[2020-06-18] MEDS: Sucralfate 1 GM TABLET PO SCH ×2 (07:59→16:41)
[2020-06-18] MEDS: Chlorhexidine Rinse 15 ML MOUTHWASH MM SCH ×2 (09:00→20:39)
[2020-06-18] MEDS: Aspirin Enteric Coated 81 MG Tablet PO SCH (09:00)
[2020-06-18] MEDS: lisinopriL 20 MG TABLET PO SCH (09:02)
[2020-06-18] MEDS ORDERED: Furosemide 40 MG/4 ML VIAL IVP ONE (09:11)
[2020-06-18] MEDS: Nystatin POWDER 30 GM BOTTLE TP SCH ×2 (09:13→20:40)
[2020-06-18 16:05] LABS: VBG Ionized Calcium 1.12 mmol/L (1.15-1.35)
[2020-06-18 16:06] LABS: Basophils % 0.5 %; Eosinophils # 0.5 K/mcL (0.0-0.6); Hematocrit 30.4 % (35.3-44.9); Immature Granulocytes % 0.8 % (0-4); Lymphocytes # 2.5 K/mcL (0.6-4.6); Mean Corpuscular HGB Conc 29.6 g/dL (31.6-35.5); Mean Corpuscular Hemoglobin 27.6 pg (28.0-33.3); Mean Corpuscular Volume 93.3 fL (83.0-100.0); Mean Platelet Volume 9.5 fL (9.4-12.4); Monocytes # 0.5 K/mcL (0.0-1.3); Monocytes % 8.2 %; Neutrophils # 2.9 K/mcL (1.6-8.9); Platelet Count 157 K/mcL (140-400); Red Blood Count 3.26 M/mcL (3.82-4.97); Red Cell Distribution Width 14.6 % (11.5-14.5); Segmented Neutrophils % 44.5 %; White Blood Count 6.4 K/mcL (4.3-11.1)
[2020-06-18 16:26] LABS: Albumin/Globulin Ratio 1.3 (1.1-2.2); Bilirubin,Total 0.4 mg/dL (0.3-1.0); Calcium 8.6 mg/dL (8.6-10.3); Globulin 2.3 g/dL (2.4-3.5); Magnesium 1.6 mg/dL (1.6-2.6); Phosphorous 2.8 mg/dL (2.7-4.5); Potassium 3.4 mEq/L (3.5-5.1); Total Protein 5.3 g/dL (6.4-8.9)
[2020-06-18] MEDS ORDERED: Potassium Chloride Elixir 20 MEQ/15 ML UDC PO ONE (20:25)
[2020-06-18] MEDS: Potassium Phosphate 44 MEQ in 0.9 % Sodium Chloride 250 ML IVPB PRN (20:38)
[2020-06-19] MEDS: Ipratropium/Albuterol Neb 3 ML IH SCH ×7 (00:04→23:12)
[2020-06-19 03:28] LABS: VBG Ionized Calcium 1.06 mmol/L (1.15-1.35)
[2020-06-19 03:32] LABS: Basophils % 0.3 %; Eosinophils # 0.5 K/mcL (0.0-0.6); Eosinophils % 7.1 %; Hematocrit 29.6 % (35.3-44.9); Hemoglobin 8.8 g/dL (11.5-15.4); Immature Granulocytes % 0.9 % (0-4); Lymphocytes # 1.9 K/mcL (0.6-4.6); Lymphocytes % 29.7 %; Mean Corpuscular HGB Conc 29.7 g/dL (31.6-35.5); Mean Corpuscular Hemoglobin 27.4 pg (28.0-33.3); Mean Corpuscular Volume 92.2 fL (83.0-100.0); Mean Platelet Volume 9.3 fL (9.4-12.4); Monocytes # 0.6 K/mcL (0.0-1.3); Monocytes % 9.8 %; Neutrophils # 3.4 K/mcL (1.6-8.9); Platelet Count 152 K/mcL (140-400); Red Blood Count 3.21 M/mcL (3.82-4.97); Red Cell Distribution Width 14.5 % (11.5-14.5); Segmented Neutrophils % 52.2 %; White Blood Count 6.5 K/mcL (4.3-11.1)
[2020-06-19 03:45] LABS: Albumin 2.8 g/dL (3.5-5.7); Albumin/Globulin Ratio 1.1 (1.1-2.2); Bilirubin,Total 0.4 mg/dL (0.3-1.0); Calcium 8.6 mg/dL (8.6-10.3); Globulin 2.6 g/dL (2.4-3.5); Magnesium 1.8 mg/dL (1.6-2.6); Phosphorous 3.7 mg/dL (2.7-4.5); Potassium 3.8 mEq/L (3.5-5.1); Total Protein 5.4 g/dL (6.4-8.9)
[2020-06-19] MEDS ORDERED: Potassium Chloride Elixir 20 MEQ/15 ML UDC PO ONE (04:15)
[2020-06-19] MEDS: Artificial Tears SOLN 15 ML BOTTLE BOTH EYES SCH ×4 (04:26→20:46)
[2020-06-19] MEDS: Insulin LISPRO 300 UNITS/3 ML VIAL SQ SCH ×6 (04:26→23:52)
[2020-06-19] MEDS: Calcium Gluconate 1gm/50mL 1 GM/50 ML BAG IVPB SCH ×2 (04:26→05:11)
[2020-06-19] MEDS: *HR* Heparin 5,000 UNIT/ML VIAL SQ SCH ×3 (05:12→20:50)
[2020-06-19] MEDS: Cefepime HCl 2,000 MG in Water for inj. (sterile) 20 ML IVP SCH ×2 (05:15→16:34)
[2020-06-19] MEDS: Doxycycline 100 MG in 0.9 % Sodium Chloride Mini Bag 100 ML IVPB SCH (05:16)
[2020-06-19] MEDS: Pantoprazole 40 MG VIAL IVP SCH (05:16)
[2020-06-19] MEDS ORDERED: Furosemide 40 MG/4 ML VIAL IVP ONE (08:39)
[2020-06-19] MEDS: lisinopriL 20 MG TABLET PO SCH (09:58)
[2020-06-19] MEDS: Aspirin Enteric Coated 81 MG Tablet PO SCH (09:58)
[2020-06-19] MEDS: Sucralfate 1 GM TABLET PO SCH ×2 (09:58→16:34)
[2020-06-19] MEDS: Nystatin POWDER 30 GM BOTTLE TP SCH ×2 (10:01→20:50)
[2020-06-19 11:53] LABS: ABG Base Excess 13 mEq/L (-2 to 3); ABG HCO3 41 mEq/L (21-27); ABG Oxygen Saturation 93 % (95-98); ABG PCO2 72 mmHg (35-45); ABG PH 7.37 pH Units (7.32-7.45); ABG PO2 74 mmHg (85-104); ABG TCO2 43 mEq/L (20-26)
[2020-06-19 13:26] LABS: VBG Ionized Calcium 1.13 mmol/L (1.15-1.35)
[2020-06-19 13:36] LABS: Calcium 8.9 mg/dL (8.6-10.3); Magnesium 2.1 mg/dL (1.6-2.6)
[2020-06-19] MEDS: Chlorhexidine Rinse 15 ML MOUTHWASH MM SCH ×2 (19:18→21:00)
[2020-06-19] MEDS: Doxycycline 100 MG CAPSULE PO SCH (20:49)
[2020-06-20 03:34] LABS: VBG Ionized Calcium 1.09 mmol/L (1.15-1.35)
[2020-06-20] MEDS: Ipratropium/Albuterol Neb 3 ML IH SCH ×6 (03:37→23:34)
[2020-06-20 03:41] LABS: Basophils % 0.3 %; Eosinophils # 0.4 K/mcL (0.0-0.6); Eosinophils % 7.1 %; Hemoglobin 9.3 g/dL (11.5-15.4); Immature Granulocytes % 0.5 % (0-4); Lymphocytes # 1.9 K/mcL (0.6-4.6); Lymphocytes % 30.6 %; Mean Corpuscular Hemoglobin 27.1 pg (28.0-33.3); Mean Corpuscular Volume 90.4 fL (83.0-100.0); Mean Platelet Volume 9.5 fL (9.4-12.4); Monocytes # 0.5 K/mcL (0.0-1.3); Monocytes % 8.7 %; Neutrophils # 3.2 K/mcL (1.6-8.9); Platelet Count 148 K/mcL (140-400); Red Blood Count 3.43 M/mcL (3.82-4.97); Red Cell Distribution Width 14.5 % (11.5-14.5); Segmented Neutrophils % 52.8 %; White Blood Count 6.1 K/mcL (4.3-11.1)
[2020-06-20] MEDS: Insulin LISPRO 300 UNITS/3 ML VIAL SQ SCH ×5 (03:55→20:52)
[2020-06-20 03:59] LABS: Albumin 3.1 g/dL (3.5-5.7); Albumin/Globulin Ratio 1.1 (1.1-2.2); Bilirubin,Total 0.4 mg/dL (0.3-1.0); Calcium 8.9 mg/dL (8.6-10.3); Globulin 2.7 g/dL (2.4-3.5); Magnesium 1.9 mg/dL (1.6-2.6); Phosphorous 2.7 mg/dL (2.7-4.5); Potassium 3.5 mEq/L (3.5-5.1); Total Protein 5.8 g/dL (6.4-8.9)
[2020-06-20] MEDS: Artificial Tears SOLN 15 ML BOTTLE BOTH EYES SCH ×4 (04:01→12:00)
[2020-06-20] MEDS: Cefepime HCl 2,000 MG in Water for inj. (sterile) 20 ML IVP SCH ×2 (05:51→17:20)
[2020-06-20] MEDS: *HR* Heparin 5,000 UNIT/ML VIAL SQ SCH ×3 (05:51→22:59)
[2020-06-20] MEDS: Sucralfate 1 GM TABLET PO SCH ×2 (07:36→17:20)
[2020-06-20] MEDS: lisinopriL 20 MG TABLET PO SCH (08:12)
[2020-06-20] MEDS: Aspirin Enteric Coated 81 MG Tablet PO SCH (08:12)
[2020-06-20] MEDS: Doxycycline 100 MG CAPSULE PO SCH ×2 (08:12→20:50)
[2020-06-20] MEDS: Nystatin POWDER 30 GM BOTTLE TP SCH ×2 (08:14→20:51)
[2020-06-20] MEDS: Chlorhexidine Rinse 15 ML MOUTHWASH MM SCH (08:14)
[2020-06-20] MEDS ORDERED: *HR* Dextrose 50 % in Water (Vial) 50 ML VIAL IVP PRN (12:32)
[2020-06-20] MEDS ORDERED: Dextrose Gel 15 GM/37.5 ML TUBE PO PRN ×2 (12:32)
[2020-06-20] MEDS ORDERED: D5% in Water 1,000 ML IVC PRN (12:32)
[2020-06-20] MEDS ORDERED: *HR* Metoprolol 5 MG/5 ML VIAL IVP PRN (12:32)
[2020-06-20] MEDS: Insulin DETEMIR 100 UNIT/ML X5UNITS SQ SCH (20:50)
[2020-06-21] MEDS: Insulin LISPRO 300 UNITS/3 ML VIAL SQ SCH ×6 (00:43→20:10)
[2020-06-21] MEDS: *HR* LORazepam 0.5 MG TABLET PO PRN ×2 (02:53→20:05)
[2020-06-21] MEDS: Ipratropium/Albuterol Neb 3 ML IH SCH ×6 (03:21→23:29)
[2020-06-21] MEDS: *HR* Heparin 5,000 UNIT/ML VIAL SQ SCH ×3 (05:42→21:53)
[2020-06-21] MEDS: Cefepime HCl 2,000 MG in Water for inj. (sterile) 20 ML IVP SCH ×2 (05:43→17:00)
[2020-06-21] MEDS: Doxycycline 100 MG CAPSULE PO SCH ×2 (08:05→20:05)
[2020-06-21] MEDS: lisinopriL 20 MG TABLET PO SCH (08:06)
[2020-06-21] MEDS: Sucralfate 1 GM TABLET PO SCH ×2 (08:06→16:58)
[2020-06-21] MEDS: Nystatin POWDER 30 GM BOTTLE TP SCH ×2 (08:06→20:10)
[2020-06-21] MEDS: Aspirin Enteric Coated 81 MG Tablet PO SCH (08:06)
[2020-06-21] MEDS: Insulin DETEMIR 100 UNIT/ML X5UNITS SQ SCH ×2 (08:14→21:54)
[2020-06-21 10:27] LABS: Red Cell Distribution Width 14.4 % (11.5-14.5)
[2020-06-21 10:29] LABS: Basophils % 0.7 %; Eosinophils # 0.4 K/mcL (0.0-0.6); Eosinophils % 6.8 %; Hematocrit 33.2 % (35.3-44.9); Immature Granulocytes % 0.7 % (0-4); Immature Platelets 2.7 % (1.1-6.1); Lymphocytes # 1.6 K/mcL (0.6-4.6); Lymphocytes % 28.2 %; Mean Corpuscular HGB Conc 30.1 g/dL (31.6-35.5); Mean Corpuscular Volume 89.5 fL (83.0-100.0); Mean Platelet Volume 9.6 fL (9.4-12.4); Monocytes # 0.5 K/mcL (0.0-1.3); Monocytes % 8.4 %; Neutrophils # 3.2 K/mcL (1.6-8.9); Platelet Count 132 K/mcL (140-400); Red Blood Count 3.71 M/mcL (3.82-4.97); Segmented Neutrophils % 55.2 %; White Blood Count 5.7 K/mcL (4.3-11.1)
[2020-06-21 10:45] LABS: Calcium 9.2 mg/dL (8.6-10.3); Magnesium 1.7 mg/dL (1.6-2.6); Phosphorous 2.2 mg/dL (2.7-4.5); Potassium 3.2 mEq/L (3.5-5.1)
[2020-06-21] MEDS ORDERED: Perflutren Lipid Microsphere 1.3 ML in 0.9 % Sodium Chloride 8.7 ML IVP PRN (13:41)
[2020-06-22 02:04] LABS: Hemoglobin 9.2 g/dL (11.5-15.4)
[2020-06-22 02:06] LABS: Basophils % 0.7 %; Eosinophils # 0.3 K/mcL (0.0-0.6); Eosinophils % 5.4 %; Hematocrit 30.1 % (35.3-44.9); Immature Granulocytes % 0.9 % (0-4); Immature Platelets 3.2 % (1.1-6.1); Lymphocytes # 1.7 K/mcL (0.6-4.6); Lymphocytes % 30.5 %; Mean Corpuscular HGB Conc 30.6 g/dL (31.6-35.5); Mean Corpuscular Hemoglobin 27.1 pg (28.0-33.3); Mean Corpuscular Volume 88.5 fL (83.0-100.0); Monocytes # 0.5 K/mcL (0.0-1.3); Monocytes % 8.8 %; Neutrophils # 3.1 K/mcL (1.6-8.9); Platelet Count 126 K/mcL (140-400); Red Cell Distribution Width 14.6 % (11.5-14.5); Segmented Neutrophils % 53.7 %; White Blood Count 5.7 K/mcL (4.3-11.1)
[2020-06-22 02:14] LABS: VBG Ionized Calcium 1.09 mmol/L (1.15-1.35)
[2020-06-22 02:30] LABS: Alanine Aminotransferase 16 Units/L (7-52); Albumin 2.8 g/dL (3.5-5.7); Albumin/Globulin Ratio 1.2 (1.1-2.2); Alkaline Phosphatase 58 Units/L (34-104); Aspartate Amino Transferase 16 Units/L (13-39); BUN/Creatinine Ratio 25 (6-26); Bilirubin,Total 0.4 mg/dL (0.3-1.0); Blood Urea Nitrogen 26 mg/dL (8-23); Calcium 8.6 mg/dL (8.6-10.3); Carbon Dioxide 40 mEq/L (23-29); Chloride 97 mEq/L (98-107); Globulin 2.4 g/dL (2.4-3.5); Glucose 105 mg/dL (70-105); Magnesium 1.6 mg/dL (1.6-2.6); Osmolality,Calculated 301 (280-300); Phosphorous 2.1 mg/dL (2.7-4.5); Potassium 3.1 mEq/L (3.5-5.1); Sodium 143 mEq/L (136-145); Total Protein 5.2 g/dL (6.4-8.9); eGFR For African Americans > 60 (> 60); eGFR For Non-African Americans 53 (> 60)
[2020-06-22] MEDS: Ipratropium/Albuterol Neb 3 ML IH SCH ×5 (03:20→19:43)
[2020-06-22] MEDS: *HR* Heparin 5,000 UNIT/ML VIAL SQ SCH ×3 (05:43→21:26)
[2020-06-22] MEDS: Insulin LISPRO 300 UNITS/3 ML VIAL SQ SCH ×3 (08:15→16:40)
[2020-06-22] MEDS: lisinopriL 20 MG TABLET PO SCH (08:44)
[2020-06-22] MEDS: Aspirin Enteric Coated 81 MG Tablet PO SCH (08:44)
[2020-06-22] MEDS: Sucralfate 1 GM TABLET PO SCH ×2 (08:44→16:39)
[2020-06-22] MEDS: *HR* LORazepam 0.5 MG TABLET PO PRN (08:59)
[2020-06-22] MEDS ORDERED: Potassium Phosphate 44 MEQ in 0.9 % Sodium Chloride 250 ML IVPB ONE (09:40)
[2020-06-22] MEDS ORDERED: acetaZOLAMIDE 250 MG TABLET PO SCH (09:45)
[2020-06-22] MEDS: Insulin DETEMIR 100 UNIT/ML X5UNITS SQ SCH ×2 (10:40→21:30)
[2020-06-22] MEDS: Nystatin POWDER 30 GM BOTTLE TP SCH ×2 (10:42→21:27)
[2020-06-22] MEDS: Furosemide 40 MG/4 ML VIAL IVP SCH ×2 (10:59→21:25)
[2020-06-22] MEDS: Gabapentin 300 MG CAPSULE PO SCH ×2 (13:13→21:25)
[2020-06-22 13:41] LABS: Hepatitis B Surface Antigen Nonreactive (Nonreactive)
[2020-06-22 14:10] LABS: Hepatitis C Virus Antibody Nonreactive (Nonreactive)
[2020-06-22 14:11] LABS: Hepatitis B Core IgM Nonreactive (Nonreactive)
[2020-06-22 14:12] LABS: Hepatitis A Antibody IgM Nonreactive (Nonreactive)
[2020-06-22] MEDS: carvediloL 6.25 MG TABLET PO SCH (17:25)
[2020-06-22] MEDS ORDERED: Insulin LISPRO 300 UNITS/3 ML VIAL SQ SCH (21:00)
[2020-06-23] MEDS: Ipratropium/Albuterol Neb 3 ML IH SCH ×5 (00:02→11:20)
[2020-06-23] MEDS: *HR* LORazepam 0.5 MG TABLET PO PRN ×2 (00:28→13:12)
[2020-06-23] MEDS ORDERED: traZODone 50 MG TABLET PO SCH (00:30)
[2020-06-23] MEDS: *HR* Heparin 5,000 UNIT/ML VIAL SQ SCH (05:28)
[2020-06-23] MEDS: Insulin LISPRO 300 UNITS/3 ML VIAL SQ SCH (07:52)
[2020-06-23] MEDS: Sucralfate 1 GM TABLET PO SCH (07:57)
[2020-06-23] MEDS: carvediloL 6.25 MG TABLET PO SCH (07:58)
[2020-06-23] MEDS: lisinopriL 20 MG TABLET PO SCH (07:58)
[2020-06-23] MEDS: Aspirin Enteric Coated 81 MG Tablet PO SCH (07:58)
[2020-06-23] MEDS: Furosemide 40 MG/4 ML VIAL IVP SCH (07:59)
[2020-06-23] MEDS: Nystatin POWDER 30 GM BOTTLE TP SCH (08:00)
[2020-06-23] MEDS: Gabapentin 300 MG CAPSULE PO SCH (08:00)
[2020-06-23] MEDS: Insulin DETEMIR 100 UNIT/ML X5UNITS SQ SCH (08:04)
[2020-06-23 08:46] LABS: Basophils % 0.6 %; Eosinophils # 0.3 K/mcL (0.0-0.6); Eosinophils % 4.6 %; Hematocrit 31.8 % (35.3-44.9); Hemoglobin 9.9 g/dL (11.5-15.4); Immature Granulocytes % 0.8 % (0-4); Lymphocytes # 2.5 K/mcL (0.6-4.6); Lymphocytes % 38.1 %; Mean Corpuscular HGB Conc 31.1 g/dL (31.6-35.5); Mean Corpuscular Hemoglobin 27.3 pg (28.0-33.3); Mean Corpuscular Volume 87.8 fL (83.0-100.0); Mean Platelet Volume 10.4 fL (9.4-12.4); Monocytes # 0.6 K/mcL (0.0-1.3); Monocytes % 9.7 %; Platelet Count 122 K/mcL (140-400); Red Blood Count 3.62 M/mcL (3.82-4.97); Red Cell Distribution Width 14.9 % (11.5-14.5); Segmented Neutrophils % 46.2 %; White Blood Count 6.5 K/mcL (4.3-11.1)
[2020-06-23 08:48] LABS: VBG Ionized Calcium 1.03 mmol/L (1.15-1.35)
[2020-06-23 10:49] LABS: Alanine Aminotransferase 28 Units/L (7-52); Albumin 3.1 g/dL (3.5-5.7); Albumin/Globulin Ratio 1.2 (1.1-2.2); Alkaline Phosphatase 62 Units/L (34-104); Aspartate Amino Transferase 31 Units/L (13-39); BUN/Creatinine Ratio 22 (6-26); Bilirubin,Total 0.5 mg/dL (0.3-1.0); Blood Urea Nitrogen 23 mg/dL (8-23); Carbon Dioxide 40 mEq/L (23-29); Chloride 95 mEq/L (98-107); Globulin 2.6 g/dL (2.4-3.5); Glucose 95 mg/dL (70-105); Magnesium 1.4 mg/dL (1.6-2.6); Osmolality,Calculated 299 (280-300); Phosphorous 2.4 mg/dL (2.7-4.5); Sodium 143 mEq/L (136-145); Total Protein 5.7 g/dL (6.4-8.9); eGFR For African Americans > 60 (> 60); eGFR For Non-African Americans 52 (> 60)
[2020-06-23 11:12] VITALS: BP 172/71
== END 2020-06-23 15:16 | disposition home health service (06) | DRG 208 ==
LOC: EMEROOARM 11:36 → ICNU 11:36 → 2NNU 06-20 14:12
PROVIDERS: ADMIT Pediatrics; ATTEND Pediatrics